=== PATIENT | female | born 1960 | race Two or more races ===

== ENCOUNTER 2017-08-29 19:19 | Inpatient (IN) | payer MEDICAID ==
[~2017-08-29] VITALS: Ht 200.7 cm; Wt 100.9 kg
[~2017-08-29 19:19] MED LIST: ALBU18HF2 INH; ALBU4TAB4 PO; ALBU8.5H8 IH; ARIP15TA3 PO; AZIT-63 PO; BACL10TA PO; BENZ-38 PO; BUPR1PAT TOP; DIPH-186 PO; DOXE75CA3 PO; FLUO20CA39 PO; GUAI600T45 PO; HYDR50TA65 PO; LEVO750T46 PO; PANT40TA4 PO; TAM75C PO; TIOT4MIS5 IH
[2017-08-29] MEDS ORDERED: methylPREDNISolone sod succ 125mg/2ml vial IV ONE (20:00)
[2017-08-29] MEDS ORDERED: ipratropium/albuterol 3ml nebule NEB ONE (20:00)
[2017-08-29] MEDS ORDERED: albuterol 2.5 MG/3 ML nebule NEB ONE (20:00)
[2017-08-29] MEDS ORDERED: normal saline 1000ML IV soln IVB ONE (20:00)
[2017-08-29 20:23] LABS: BASOPHILS % (AUTO) 0 % (0-1); EOSINOPHILS # (AUTO) 0.4 X10'3 (0-0.9); EOSINOPHILS % (AUTO) 5.4 % (0-6); HEMATOCRIT 39.6 % (35.0-45.0); HEMOGLOBIN 12.9 g/dl (12.0-16.0); LYMPHOCYTES # (AUTO) 0.7 X10'3 (1.1-4.8); LYMPHOCYTES % (AUTO) 9.4 % (21-51); MEAN CORPUSCULAR HEMOGLOBIN 28.5 PG (27.0-31.0); MEAN CORPUSCULAR HGB CONC 32.6 % (33.0-36.5); MEAN CORPUSCULAR VOLUME 87.3 FL (78-98); MEAN PLATELET VOLUME 6.5 FL (7.4-10.4); MONOCYTES # (AUTO) 0.5 X10'3 (0-0.9); NEUTROPHILS % (AUTO) 78.2 % (42-75); PLATELET COUNT 265 X10'3 (140-440); RED BLOOD COUNT 4.53 X10'6 (4.20-5.60); RED CELL DISTRIBUTION WIDTH 16.9 % (11.5-14.5); WHITE BLOOD COUNT 7.6 X10'3 (4.5-11.0)
[2017-08-29 20:30] LABS: INR 0.9 INR; PARTIAL THROMBOPLASTIN TIME 26 SECONDS (22-32); PROTHROMBIN TIME 9.8 SECONDS (9.0-12.0)
[2017-08-29 20:32] LABS: ALANINE AMINOTRANSFERASE 26 U/L (12-78); ALBUMIN 3.1 G/DL (3.4-5.0); ALBUMIN/GLOBULIN RATIO 0.7 (1.1-1.5); ALKALINE PHOSPHATASE 73 IU/L (46-116); ANION GAP 3 (8-16); ASPARTATE AMINO TRANSFERASE 15 U/L (10-37); BILIRUBIN,TOTAL 0.3 MG/DL (0.1-1.0); BLOOD UREA NITROGEN 8 MG/DL (7-18); BUN/CREATININE RATIO 13.1 (6.6-38.0); CHLORIDE 102 MMOL/L (99-107); CREATININE 0.61 MG/DL (0.40-0.90); GLUCOSE 154 MG/DL (70-104); POTASSIUM 4.3 MMOL/L (3.5-5.1); SODIUM 140 MMOL/L (135-145); TOTAL CARBON DIOXIDE 35.5 MMOL/L (24-32); TOTAL PROTEIN 7.3 G/DL (6.4-8.2); eGFR > 90 ML/MIN
[2017-08-29] MEDS ORDERED: levoFLOXACIN-Levaquin 500mg/D5 100 ML IV ONE (21:20)
[2017-08-29] MEDS ORDERED: ondansetron/PF 4mg/2ml inj IV PRN (22:45)
[2017-08-29] MEDS ORDERED: magnesium hydroxide 30ml (MOM) UD suspension PO PRN (22:45)
[2017-08-29] MEDS ORDERED: mag hydrox/Alum hydrox/simeth 30ml oral suspension PO PRN (22:45)
[2017-08-29] MEDS ORDERED: acetaminophen 325mg tablet PO PRN ×2 (22:45)
[2017-08-29] MEDS: normal saline 1000ml 1,000 ML IV SCH (23:19)
[2017-08-29] MEDS: baclofen 10mg tablet PO SCH (23:41)
[2017-08-30] VITALS: BP 120/81
[2017-08-30] MEDS: methylPREDNISolone sod succ 125mg/2ml vial IV SCH ×4 (01:58→21:25)
[2017-08-30 05:00] VITALS: BP 124/79
[2017-08-30 07:04] LABS: ALBUMIN 2.8 G/DL (3.4-5.0); ANION GAP 6 (8-16); BLOOD UREA NITROGEN 11 MG/DL (7-18); BUN/CREATININE RATIO 13.1 (6.6-38.0); CALCIUM 8.7 MG/DL (8.5-10.1); CHLORIDE 102 MMOL/L (99-107); CREATININE 0.84 MG/DL (0.40-0.90); GLUCOSE 272 MG/DL (70-104); SODIUM 140 MMOL/L (135-145); TOTAL CARBON DIOXIDE 32.1 MMOL/L (24-32); eGFR 70 ML/MIN
[2017-08-30 07:05] LABS: BASOPHILS % (AUTO) 0 % (0-1); EOSINOPHILS % (AUTO) 0.7 % (0-6); HEMATOCRIT 39.3 % (35.0-45.0); HEMOGLOBIN 12.7 g/dl (12.0-16.0); LYMPHOCYTES # (AUTO) 0.3 X10'3 (1.1-4.8); LYMPHOCYTES % (AUTO) 4.4 % (21-51); MEAN CORPUSCULAR HEMOGLOBIN 28.4 PG (27.0-31.0); MEAN CORPUSCULAR HGB CONC 32.4 % (33.0-36.5); MEAN CORPUSCULAR VOLUME 87.5 FL (78-98); MEAN PLATELET VOLUME 7.1 FL (7.4-10.4); MONOCYTES # (AUTO) 0.1 X10'3 (0-0.9); MONOCYTES % (AUTO) 0.9 % (2-12); NEUTROPHILS # (AUTO) 5.4 X10'3 (1.8-7.7); PLATELET COUNT 259 X10'3 (140-440); RED BLOOD COUNT 4.49 X10'6 (4.20-5.60); RED CELL DISTRIBUTION WIDTH 16.9 % (11.5-14.5); WHITE BLOOD COUNT 5.8 X10'3 (4.5-11.0)
[2017-08-30] MEDS ORDERED: lactobacillus rhamnosus 10,000 MMU CELLS/CAPSULE PO SCH (07:30)
[2017-08-30] MEDS: pantoprazole 40mg Tablet.DR PO SCH (08:14)
[2017-08-30] MEDS: LACTOBACILLUS RHAMNOSUS GG 15 billion unit sprinkle caps PO SCH (08:15)
[2017-08-30] MEDS: baclofen 10mg tablet PO SCH ×2 (08:15→21:25)
[2017-08-30] MEDS: levoFLOXACIN-Levaquin 750MG/D5 150 ML IV SCH (08:15)
[2017-08-30] MEDS: enoxaparin 40mg/0.4ml syringe SUBCUT SCH (08:16)
[2017-08-30] MEDS: guaiFENesin ER 600mg tablet PO SCH ×2 (08:18→21:25)
[2017-08-30] MEDS: clonazePAM 0.5mg tablet PO PRN ×2 (08:31→19:16)
[2017-08-30] MEDS: ipratropium/albuterol 3ml nebule NEB PRN ×2 (08:42→11:16)
[2017-08-30] MEDS: normal saline 1000ml 1,000 ML IV SCH ×2 (08:45→15:07)
[2017-08-30 10:00] VITALS: BP 121/84
[2017-08-30] MEDS ORDERED: dextrose ORAL solution 15 GM/59 ML bottle PO PRN ×2 (11:00)
[2017-08-30] MEDS ORDERED: glucagon, human recombinant 1mg kit SUBCUT PRN (11:00)
[2017-08-30] MEDS ORDERED: MESSAGE TO PHARMACY PO ONE (11:00)
[2017-08-30] MEDS ORDERED: dextrose 50%-water 50ml dispensing syringe IV PRN ×2 (11:00)
[2017-08-30 13:40] LABS: HEMOGLOBIN A1C 6.6 % (4.5-6.2)
[2017-08-30 18:00] VITALS: BP 148/88
[2017-08-30] MEDS: insulin Lispro (HumaLOG) vial - multi-dose SQ SCH (19:52)
[2017-08-30] MEDS ORDERED: zolpidem 5mg tablet PO PRN ×2 (20:05→20:30)
[2017-08-30] MEDS: aripiprazole 5mg tablet PO SCH (21:25)
[2017-08-30 22:00] VITALS: BP 124/70
[2017-08-30] MEDS: Insulin Detemir pen SQ SCH (22:49)
[2017-08-30] MEDS: zolpidem 5mg tablet PO PRN (22:50)
[2017-08-31] MEDS: methylPREDNISolone sod succ 125mg/2ml vial IV SCH ×4 (02:11→20:01)
[2017-08-31] MEDS: normal saline 1000ml 1,000 ML IV SCH ×2 (02:11→13:43)
[2017-08-31] MEDS: ipratropium/albuterol 3ml nebule NEB PRN ×2 (03:04→09:06)
[2017-08-31 06:26] LABS: BASOPHILS % (AUTO) 0 % (0-1); EOSINOPHILS # (AUTO) 0.1 X10'3 (0-0.9); EOSINOPHILS % (AUTO) 1.2 % (0-6); HEMOGLOBIN 11.8 g/dl (12.0-16.0); LYMPHOCYTES # (AUTO) 0.5 X10'3 (1.1-4.8); LYMPHOCYTES % (AUTO) 5.4 % (21-51); MEAN CORPUSCULAR HEMOGLOBIN 28.4 PG (27.0-31.0); MEAN CORPUSCULAR HGB CONC 32.6 % (33.0-36.5); MEAN CORPUSCULAR VOLUME 87.2 FL (78-98); MEAN PLATELET VOLUME 6.7 FL (7.4-10.4); MONOCYTES # (AUTO) 0.3 X10'3 (0-0.9); MONOCYTES % (AUTO) 2.8 % (2-12); NEUTROPHILS % (AUTO) 90.6 % (42-75); PLATELET COUNT 275 X10'3 (140-440); RED BLOOD COUNT 4.13 X10'6 (4.20-5.60); RED CELL DISTRIBUTION WIDTH 17.3 % (11.5-14.5); WHITE BLOOD COUNT 8.9 X10'3 (4.5-11.0)
[2017-08-31 06:32] VITALS: BP 119/69
[2017-08-31 06:39] LABS: ALBUMIN 2.8 G/DL (3.4-5.0); ANION GAP 3 (8-16); BLOOD UREA NITROGEN 11 MG/DL (7-18); BUN/CREATININE RATIO 16.2 (6.6-38.0); CALCIUM 8.5 MG/DL (8.5-10.1); CHLORIDE 106 MMOL/L (99-107); CREATININE 0.68 MG/DL (0.40-0.90); GLUCOSE 181 MG/DL (70-104); SODIUM 142 MMOL/L (135-145); TOTAL CARBON DIOXIDE 32.6 MMOL/L (24-32); eGFR 90 ML/MIN
[2017-08-31] MEDS: LACTOBACILLUS RHAMNOSUS GG 15 billion unit sprinkle caps PO SCH (07:33)
[2017-08-31] MEDS: enoxaparin 40mg/0.4ml syringe SUBCUT SCH (07:33)
[2017-08-31] MEDS: pantoprazole 40mg Tablet.DR PO SCH (07:33)
[2017-08-31] MEDS: guaiFENesin ER 600mg tablet PO SCH ×2 (07:33→20:01)
[2017-08-31] MEDS: clonazePAM 0.5mg tablet PO PRN (07:33)
[2017-08-31] MEDS: levoFLOXACIN-Levaquin 750MG/D5 150 ML IV SCH (07:33)
[2017-08-31] MEDS: baclofen 10mg tablet PO SCH ×2 (07:34→20:02)
[2017-08-31] MEDS ORDERED: FLUoxetine 20mg capsule PO SCH (08:00)
[2017-08-31] MEDS: insulin Lispro (HumaLOG) vial - multi-dose SQ SCH ×3 (08:46→18:57)
[2017-08-31 10:53] VITALS: BP 132/79
[2017-08-31] MEDS ORDERED: BUPRENORPHINE 20 MCG/HR TOP SCH (10:55)
[2017-08-31 18:10] VITALS: BP 129/89
[2017-08-31] MEDS: aripiprazole 5mg tablet PO SCH (20:02)
[2017-08-31] MEDS: Insulin Detemir pen SQ SCH (20:33)
[2017-08-31] MEDS: zolpidem 5mg tablet PO PRN (20:34)
[2017-08-31 22:02] VITALS: BP 118/80
[2017-09-01] MEDS: normal saline 1000ml 1,000 ML IV SCH ×2 (00:45→19:06)
[2017-09-01] MEDS: methylPREDNISolone sod succ 125mg/2ml vial IV SCH ×3 (02:35→13:51)
[2017-09-01 06:00] VITALS: BP 101/58
[2017-09-01 06:04] LABS: BASOPHILS # (AUTO) 0.1 X10'3 (0-0.2); BASOPHILS % (AUTO) 0.5 % (0-1); EOSINOPHILS % (AUTO) 0 % (0-6); HEMATOCRIT 35.9 % (35.0-45.0); HEMOGLOBIN 11.5 g/dl (12.0-16.0); LYMPHOCYTES # (AUTO) 0.5 X10'3 (1.1-4.8); LYMPHOCYTES % (AUTO) 5.1 % (21-51); MEAN CORPUSCULAR HEMOGLOBIN 28.4 PG (27.0-31.0); MEAN CORPUSCULAR HGB CONC 32.1 % (33.0-36.5); MEAN CORPUSCULAR VOLUME 88.5 FL (78-98); MEAN PLATELET VOLUME 7.1 FL (7.4-10.4); MONOCYTES # (AUTO) 0.3 X10'3 (0-0.9); MONOCYTES % (AUTO) 2.8 % (2-12); NEUTROPHILS # (AUTO) 9.4 X10'3 (1.8-7.7); NEUTROPHILS % (AUTO) 91.6 % (42-75); PLATELET COUNT 283 X10'3 (140-440); RED BLOOD COUNT 4.06 X10'6 (4.20-5.60); RED CELL DISTRIBUTION WIDTH 17.7 % (11.5-14.5); WHITE BLOOD COUNT 10.2 X10'3 (4.5-11.0)
[2017-09-01 06:19] LABS: ALBUMIN 2.6 G/DL (3.4-5.0); ANION GAP 2 (8-16); BLOOD UREA NITROGEN 12 MG/DL (7-18); BUN/CREATININE RATIO 20.3 (6.6-38.0); CALCIUM 8.4 MG/DL (8.5-10.1); CHLORIDE 107 MMOL/L (99-107); CREATININE 0.59 MG/DL (0.40-0.90); GLUCOSE 139 MG/DL (70-104); SODIUM 142 MMOL/L (135-145); TOTAL CARBON DIOXIDE 32.7 MMOL/L (24-32); eGFR > 90 ML/MIN
[2017-09-01] MEDS: LACTOBACILLUS RHAMNOSUS GG 15 billion unit sprinkle caps PO SCH (07:24)
[2017-09-01] MEDS: guaiFENesin ER 600mg tablet PO SCH (07:25)
[2017-09-01] MEDS: pantoprazole 40mg Tablet.DR PO SCH (07:25)
[2017-09-01] MEDS: enoxaparin 40mg/0.4ml syringe SUBCUT SCH (07:25)
[2017-09-01] MEDS: levoFLOXACIN-Levaquin 750MG/D5 150 ML IV SCH (07:25)
[2017-09-01] MEDS: baclofen 10mg tablet PO SCH (07:25)
[2017-09-01] MEDS: clonazePAM 0.5mg tablet PO PRN ×2 (07:30→16:03)
[2017-09-01] MEDS: insulin Lispro (HumaLOG) vial - multi-dose SQ SCH ×3 (08:54→18:50)
[2017-09-01] MEDS: ipratropium/albuterol 3ml nebule NEB PRN ×2 (09:41→15:11)
[2017-09-01 10:00] VITALS: BP 128/79
[2017-09-01] MEDS ORDERED: LEVO750T46 PO (19:00)
[2017-09-01] MEDS ORDERED: TAM75C PO (19:00)
[2017-09-01] MEDS ORDERED: ALBU8.5H8 IH (19:00)
[2017-09-01] MEDS ORDERED: PRED10TA23 PO (19:34)
== END 2017-09-01 20:05 | disposition home health service (06) | DRG 133 ==
LOC: ER 19:19 → ED HOLD 22:45 → ORTHO 4S 23:59
PROVIDERS: ADMIT Internal Medicine; ATTEND Legal Medicine
DX: J96.21 Acute and chronic respiratory failure with hypoxia (principal); J18.9 Pneumonia, unspecified organism; Z99.81 Dependence on supplemental oxygen; J44.1 Chronic obstructive pulmonary disease with (acute) exacerbation; F31.9 Bipolar disorder, unspecified; F41.0 Panic disorder [episodic paroxysmal anxiety]; F29 Unspecified psychosis not due to a substance or known physiological condition; G43.909 Migraine, unspecified, not intractable, without status migrainosus; M19.90 Unspecified osteoarthritis, unspecified site; M54.9 Dorsalgia, unspecified; G89.29 Other chronic pain; K21.9 Gastro-esophageal reflux disease without esophagitis; Z82.0 Family history of epilepsy and other diseases of the nervous system; Z86.73 Personal history of transient ischemic attack (TIA), and cerebral infarction without residual deficits; Z88.2 Allergy status to sulfonamides; Z88.1 Allergy status to other antibiotic agents; Z88.8 Allergy status to other drugs, medicaments and biological substances; Z79.899 Other long term (current) drug therapy; Z79.01 Long term (current) use of anticoagulants; Z87.891 Personal history of nicotine dependence
CPT/HCPCS: 36415; 71045; 80048; 80053; 82948; 83036; 83880; 85025; 85610; 85730; 87070; 87502; 87503; 93005; 94640; 94760; 96365; 96375; 99285; J1650; J1956; J2930; J7030

== ENCOUNTER 2017-09-17 17:04 | Inpatient (IN) | payer MEDICAID ==
[~2017-09-17] VITALS: Ht 170.2 cm; Wt 97.3 kg
[~2017-09-17 17:04] MED LIST changes: -ALBU18HF2 INH; -AZIT-63 PO; -BACL10TA PO; -BENZ-38 PO; -DIPH-186 PO; +PRED10TA23 PO
[2017-09-17] MEDS ORDERED: methylPREDNISolone sod succ 125mg/2ml vial IV ONE (17:45)
[2017-09-17] MEDS ORDERED: ipratropium/albuterol 3ml nebule NEB ONE ×2 (17:45→19:25)
[2017-09-17 18:06] LABS: BASOPHILS % (AUTO) 0 % (0-1); EOSINOPHILS % (AUTO) 0.1 % (0-6); HEMATOCRIT 37.9 % (35.0-45.0); HEMOGLOBIN 12.7 g/dl (12.0-16.0); LYMPHOCYTES # (AUTO) 1.1 X10'3 (1.1-4.8); LYMPHOCYTES % (AUTO) 6.5 % (21-51); MEAN CORPUSCULAR HEMOGLOBIN 29.1 PG (27.0-31.0); MEAN CORPUSCULAR HGB CONC 33.5 % (33.0-36.5); MEAN CORPUSCULAR VOLUME 86.8 FL (78-98); MEAN PLATELET VOLUME 6.4 FL (7.4-10.4); MONOCYTES # (AUTO) 0.3 X10'3 (0-0.9); MONOCYTES % (AUTO) 1.7 % (2-12); NEUTROPHILS % (AUTO) 91.7 % (42-75); PLATELET COUNT 319 X10'3 (140-440); RED BLOOD COUNT 4.37 X10'6 (4.20-5.60); RED CELL DISTRIBUTION WIDTH 17.6 % (11.5-14.5); WHITE BLOOD COUNT 16.3 X10'3 (4.5-11.0)
[2017-09-17 18:16] LABS: PARTIAL THROMBOPLASTIN TIME 27 SECONDS (22-32); PROTHROMBIN TIME 9.9 SECONDS (9.0-12.0)
[2017-09-17 18:28] LABS: ALANINE AMINOTRANSFERASE 22 U/L (12-78); ALBUMIN 3.3 G/DL (3.4-5.0); ALBUMIN/GLOBULIN RATIO 0.8 (1.1-1.5); ALKALINE PHOSPHATASE 66 IU/L (46-116); ANION GAP 6 (8-16); ASPARTATE AMINO TRANSFERASE 12 U/L (10-37); BILIRUBIN,TOTAL 0.7 MG/DL (0.1-1.0); BLOOD UREA NITROGEN 11 MG/DL (7-18); BUN/CREATININE RATIO 18.3 (6.6-38.0); CALCIUM 8.9 MG/DL (8.5-10.1); CHLORIDE 101 MMOL/L (99-107); GLUCOSE 104 MG/DL (70-104); SODIUM 140 MMOL/L (135-145); TOTAL CARBON DIOXIDE 33.4 MMOL/L (24-32); TOTAL PROTEIN 7.3 G/DL (6.4-8.2); eGFR > 90 ML/MIN
[2017-09-17] MEDS ORDERED: acetaminophen 325mg tablet PO STA (18:30)
[2017-09-17] MEDS ORDERED: normal saline 1000ML IV soln IV ONE (18:30)
[2017-09-17] MEDS ORDERED: ketorolac trometh. 30mg/ml inj. IV ONE (19:25)
[2017-09-17] MEDS ORDERED: CefTRIAXone 2gm/NS 100ml IVPB 100 ML IV ONE (20:45)
[2017-09-17] MEDS ORDERED: vancomycin/NS 1 GM ADD-VANTAGE 250 ML X 1 DOSE IV ONE (20:55)
[2017-09-17 20:59] LABS: CLARITY,URINE Clear (Clear); COLOR,URINE Yellow (Yellow); GLUCOSE, URINE Negative (Neg); KETONES,URINE Negative (Neg); LEUKOCYTE ESTERASE ,URINE Small (Neg); NITRITES, URINE Negative (Neg); OCCULT BLOOD,URINE Negative (Neg); PH,URINE 6.5 (4.8-8.0); PROTEIN,URINE Negative (Neg); UA COLLECTION TYPE CLN CATCH MIDSTREAM; UROBILINOGEN,URINE 0.2 E.U/dL (0.2-1.0)
[2017-09-17 21:09] LABS: WBC,URINE 0-4 /HPF (0-4)
[2017-09-17 21:10] LABS: BACTERIA,URINE 1+ /HPF (Neg); RBC,URINE 0-2 /HPF (0-2); SQUAMOUS EPITHELIAL CELL,UR MODERATE /LPF (FEW); TRANSITIONAL EPI CELLS,URINE FEW /HPF
[2017-09-17] MEDS ORDERED: magnesium hydroxide 30ml (MOM) UD suspension PO PRN (23:25)
[2017-09-17] MEDS ORDERED: mag hydrox/Alum hydrox/simeth 30ml oral suspension PO PRN (23:25)
[2017-09-17] MEDS ORDERED: acetaminophen 325mg tablet PO PRN (23:25)
[2017-09-17] MEDS ORDERED: albuterol 2.5 MG/3 ML nebule NEB PRN (23:35)
[2017-09-18] MEDS ORDERED: piperacillin/tazo 3.375gm/50ml 50 ML IV SCH
[2017-09-18] MEDS: methylPREDNISolone sod succ 125mg/2ml vial IV SCH ×3 (01:52→15:02)
[2017-09-18] MEDS: ipratropium 0.5 MG/2.5ML nebule IH SCH ×4 (03:18→20:00)
[2017-09-18] MEDS: lactobacillus rhamnosus 10,000 MMU CELLS/CAPSULE PO SCH ×2 (07:39→16:45)
[2017-09-18] MEDS: pantoprazole 40mg Tablet.DR PO SCH (07:39)
[2017-09-18] MEDS: FLUoxetine 20mg capsule PO SCH (08:00)
[2017-09-18] MEDS ORDERED: HYDR-565 PO (08:23)
[2017-09-18] MEDS: guaiFENesin ER 600mg tablet PO SCH ×2 (08:31→20:39)
[2017-09-18] MEDS: hydrOXYzine 25 MG tablet PO SCH ×2 (08:37→15:08)
[2017-09-18 08:52] LABS: BASOPHILS % (AUTO) 0 % (0-1); EOSINOPHILS % (AUTO) 0 % (0-6); HEMATOCRIT 36.3 % (35.0-45.0); HEMOGLOBIN 12.2 g/dl (12.0-16.0); LYMPHOCYTES # (AUTO) 0.5 X10'3 (1.1-4.8); LYMPHOCYTES % (AUTO) 2.7 % (21-51); MEAN CORPUSCULAR HEMOGLOBIN 29.4 PG (27.0-31.0); MEAN CORPUSCULAR HGB CONC 33.6 % (33.0-36.5); MEAN CORPUSCULAR VOLUME 87.4 FL (78-98); MEAN PLATELET VOLUME 6.5 FL (7.4-10.4); MONOCYTES # (AUTO) 0.1 X10'3 (0-0.9); MONOCYTES % (AUTO) 0.7 % (2-12); NEUTROPHILS # (AUTO) 16.9 X10'3 (1.8-7.7); NEUTROPHILS % (AUTO) 96.6 % (42-75); PLATELET COUNT 283 X10'3 (140-440); RED BLOOD COUNT 4.15 X10'6 (4.20-5.60); WHITE BLOOD COUNT 17.5 X10'3 (4.5-11.0)
[2017-09-18 09:09] LABS: ALANINE AMINOTRANSFERASE 19 U/L (12-78); ALBUMIN 2.8 G/DL (3.4-5.0); ALBUMIN/GLOBULIN RATIO 0.7 (1.1-1.5); ALKALINE PHOSPHATASE 64 IU/L (46-116); ANION GAP 7 (8-16); ASPARTATE AMINO TRANSFERASE 9 U/L (10-37); BILIRUBIN,TOTAL 0.3 MG/DL (0.1-1.0); BLOOD UREA NITROGEN 14 MG/DL (7-18); BUN/CREATININE RATIO 15.6 (6.6-38.0); CALCIUM 8.4 MG/DL (8.5-10.1); CHLORIDE 106 MMOL/L (99-107); GLUCOSE 256 MG/DL (70-104); POTASSIUM 4.1 MMOL/L (3.5-5.1); SODIUM 141 MMOL/L (135-145); TOTAL CARBON DIOXIDE 27.7 MMOL/L (24-32); TOTAL PROTEIN 6.8 G/DL (6.4-8.2); eGFR 65 ML/MIN
[2017-09-18 10:33] VITALS: BP 105/63
[2017-09-18] MEDS ORDERED: levoFLOXACIN 750MG TABLET PO SCH (11:00)
[2017-09-18] MEDS: HYDROcodone/acetaminophen 10/325mg tab PO PRN (11:03)
[2017-09-18 15:05] VITALS: BP 121/69
[2017-09-18 15:32] VITALS: BP 124/70
[2017-09-18 18:00] VITALS: BP 147/77
[2017-09-18] MEDS: CefTRIAXone/D5W-Rocephin 1gm 50 ML IV SCH (20:39)
[2017-09-18] MEDS: aripiprazole 5mg tablet PO SCH (20:39)
[2017-09-18] MEDS: doxepin 25mg capsule PO SCH (22:26)
[2017-09-19] VITALS: BP 124/75
[2017-09-19] MEDS: hydrOXYzine 25 MG tablet PO SCH ×3 (00:12→17:09)
[2017-09-19] MEDS: methylPREDNISolone sod succ/PF 40mg inj. IV SCH ×3 (00:12→17:10)
[2017-09-19] MEDS: HYDROcodone/acetaminophen 10/325mg tab PO PRN ×3 (02:09→17:10)
[2017-09-19] MEDS: ipratropium 0.5 MG/2.5ML nebule IH SCH ×4 (02:11→20:16)
[2017-09-19] MEDS: ondansetron/PF 4mg/2ml inj IV PRN ×2 (05:55→14:59)
[2017-09-19 06:07] LABS: BASOPHILS # (AUTO) 0.1 X10'3 (0-0.2); BASOPHILS % (AUTO) 0.7 % (0-1); EOSINOPHILS # (AUTO) 0.3 X10'3 (0-0.9); EOSINOPHILS % (AUTO) 1.3 % (0-6); HEMATOCRIT 35.1 % (35.0-45.0); HEMOGLOBIN 11.8 g/dl (12.0-16.0); LYMPHOCYTES # (AUTO) 0.6 X10'3 (1.1-4.8); LYMPHOCYTES % (AUTO) 3.2 % (21-51); MEAN CORPUSCULAR HEMOGLOBIN 29.4 PG (27.0-31.0); MEAN CORPUSCULAR HGB CONC 33.7 % (33.0-36.5); MEAN CORPUSCULAR VOLUME 87.3 FL (78-98); MEAN PLATELET VOLUME 7.3 FL (7.4-10.4); MONOCYTES # (AUTO) 0.5 X10'3 (0-0.9); MONOCYTES % (AUTO) 2.7 % (2-12); NEUTROPHILS # (AUTO) 18.3 X10'3 (1.8-7.7); NEUTROPHILS % (AUTO) 92.1 % (42-75); PLATELET COUNT 323 X10'3 (140-440); RED BLOOD COUNT 4.02 X10'6 (4.20-5.60); RED CELL DISTRIBUTION WIDTH 17.5 % (11.5-14.5); WHITE BLOOD COUNT 19.9 X10'3 (4.5-11.0)
[2017-09-19 06:40] LABS: ALANINE AMINOTRANSFERASE 21 U/L (12-78); ALBUMIN 2.9 G/DL (3.4-5.0); ALBUMIN/GLOBULIN RATIO 0.7 (1.1-1.5); ALKALINE PHOSPHATASE 73 IU/L (46-116); ANION GAP 9 (8-16); ASPARTATE AMINO TRANSFERASE 10 U/L (10-37); BILIRUBIN,TOTAL 0.2 MG/DL (0.1-1.0); BLOOD UREA NITROGEN 12 MG/DL (7-18); BUN/CREATININE RATIO 17.1 (6.6-38.0); CHLORIDE 106 MMOL/L (99-107); GLUCOSE 140 MG/DL (70-104); POTASSIUM 4.1 MMOL/L (3.5-5.1); SODIUM 142 MMOL/L (135-145); TOTAL CARBON DIOXIDE 27.5 MMOL/L (24-32); eGFR 87 ML/MIN
[2017-09-19 07:30] VITALS: BP 122/74
[2017-09-19] MEDS: pantoprazole 40mg Tablet.DR PO SCH (07:31)
[2017-09-19] MEDS: lactobacillus rhamnosus 10,000 MMU CELLS/CAPSULE PO SCH ×2 (07:31→17:10)
[2017-09-19] MEDS: guaiFENesin ER 600mg tablet PO SCH ×2 (07:32→21:34)
[2017-09-19] MEDS: azithromycin 250mg tablet PO SCH (07:32)
[2017-09-19] MEDS: FLUoxetine 20mg capsule PO SCH (07:36)
[2017-09-19 11:32] VITALS: BP 129/83
[2017-09-19 18:00] VITALS: BP 118/91
[2017-09-19] MEDS: doxepin 25mg capsule PO SCH (21:34)
[2017-09-19] MEDS: aripiprazole 5mg tablet PO SCH (21:34)
[2017-09-19] MEDS: CefTRIAXone/D5W-Rocephin 1gm 50 ML IV SCH (21:34)
[2017-09-20] VITALS: BP 116/79
[2017-09-20] MEDS: hydrOXYzine 25 MG tablet PO SCH ×2 (00:18→07:26)
[2017-09-20] MEDS: methylPREDNISolone sod succ/PF 40mg inj. IV SCH ×2 (00:18→07:27)
[2017-09-20] MEDS: ipratropium 0.5 MG/2.5ML nebule IH SCH ×3 (02:48→14:40)
[2017-09-20 06:33] LABS: BASOPHILS % (AUTO) 0 % (0-1); EOSINOPHILS # (AUTO) 0.1 X10'3 (0-0.9); EOSINOPHILS % (AUTO) 0.9 % (0-6); HEMOGLOBIN 11.8 g/dl (12.0-16.0); LYMPHOCYTES # (AUTO) 0.5 X10'3 (1.1-4.8); LYMPHOCYTES % (AUTO) 3.5 % (21-51); MEAN CORPUSCULAR HEMOGLOBIN 28.8 PG (27.0-31.0); MEAN CORPUSCULAR HGB CONC 32.6 % (33.0-36.5); MEAN CORPUSCULAR VOLUME 88.3 FL (78-98); MEAN PLATELET VOLUME 7.1 FL (7.4-10.4); MONOCYTES # (AUTO) 0.3 X10'3 (0-0.9); MONOCYTES % (AUTO) 2.1 % (2-12); NEUTROPHILS # (AUTO) 12.5 X10'3 (1.8-7.7); NEUTROPHILS % (AUTO) 93.5 % (42-75); PLATELET COUNT 316 X10'3 (140-440); RED BLOOD COUNT 4.08 X10'6 (4.20-5.60); WHITE BLOOD COUNT 13.4 X10'3 (4.5-11.0)
[2017-09-20 07:00] VITALS: BP 111/76
[2017-09-20 07:07] LABS: ALANINE AMINOTRANSFERASE 20 U/L (12-78); ALBUMIN 2.6 G/DL (3.4-5.0); ALBUMIN/GLOBULIN RATIO 0.7 (1.1-1.5); ALKALINE PHOSPHATASE 61 IU/L (46-116); ANION GAP 5 (8-16); ASPARTATE AMINO TRANSFERASE 8 U/L (10-37); BILIRUBIN,TOTAL 0.2 MG/DL (0.1-1.0); BLOOD UREA NITROGEN 14 MG/DL (7-18); CHLORIDE 107 MMOL/L (99-107); GLUCOSE 157 MG/DL (70-104); POTASSIUM 4.6 MMOL/L (3.5-5.1); SODIUM 146 MMOL/L (135-145); TOTAL CARBON DIOXIDE 34.1 MMOL/L (24-32); TOTAL PROTEIN 6.4 G/DL (6.4-8.2); eGFR 87 ML/MIN
[2017-09-20] MEDS: lactobacillus rhamnosus 10,000 MMU CELLS/CAPSULE PO SCH (07:26)
[2017-09-20] MEDS: pantoprazole 40mg Tablet.DR PO SCH (07:26)
[2017-09-20] MEDS: FLUoxetine 20mg capsule PO SCH (07:26)
[2017-09-20] MEDS: azithromycin 250mg tablet PO SCH (07:27)
[2017-09-20] MEDS: guaiFENesin ER 600mg tablet PO SCH (07:27)
[2017-09-20] MEDS: HYDROcodone/acetaminophen 10/325mg tab PO PRN (07:27)
[2017-09-20 11:00] VITALS: BP 140/75
[2017-09-20] MEDS ORDERED: LEVO500T89 PO (11:33)
[2017-09-20] MEDS ORDERED: PRED10TA23 PO (11:33)
[2017-09-20] MEDS ORDERED: DIPH1TAB PO (12:02)
[2017-09-21] MEDS ORDERED: BUPRENORPHINE 20 MCG/HR TOP SCH (08:00)
== END 2017-09-20 15:00 | disposition home health service (06) | DRG 720 ==
LOC: ER 17:04 → ED HOLD 23:22 → SUR 3N 09-18 15:30
PROVIDERS: ADMIT Internal Medicine; ATTEND Family Medicine
DX: A41.9 Sepsis, unspecified organism (principal); J96.20 Acute and chronic respiratory failure, unspecified whether with hypoxia or hypercapnia; J18.9 Pneumonia, unspecified organism; Z99.81 Dependence on supplemental oxygen; J44.0 Chronic obstructive pulmonary disease with (acute) lower respiratory infection; J44.1 Chronic obstructive pulmonary disease with (acute) exacerbation; F31.9 Bipolar disorder, unspecified; F41.0 Panic disorder [episodic paroxysmal anxiety]; G89.4 Chronic pain syndrome; G43.909 Migraine, unspecified, not intractable, without status migrainosus; M19.90 Unspecified osteoarthritis, unspecified site; K21.9 Gastro-esophageal reflux disease without esophagitis; Z86.73 Personal history of transient ischemic attack (TIA), and cerebral infarction without residual deficits; Z87.891 Personal history of nicotine dependence; Z88.2 Allergy status to sulfonamides; Z88.3 Allergy status to other anti-infective agents; Z88.8 Allergy status to other drugs, medicaments and biological substances; Z79.52 Long term (current) use of systemic steroids; Z79.899 Other long term (current) drug therapy
CPT/HCPCS: 36415; 71045; 80053; 81001; 83605; 84145; 84484; 85025; 85610; 85730; 87040; 87070; 87088; 87502; 87503; 93005; 94640; 94760; 96361; 96365; 96366; 96367; 96375; 99285; A6258; J0696; J1885; J2405; J2920; J2930; J3370; J7030; Q0177

== ENCOUNTER 2017-10-01 20:13 | Emergency (ER) | payer MEDICAID ==
[~2017-10-01] VITALS: Ht 170.2 cm; Wt 97.7 kg
[~2017-10-01 20:13] MED LIST changes: +DIPH1TAB PO; -FLUO20CA39 PO; +HYDR-565 PO; -LEVO750T46 PO; -PANT40TA4 PO; -TAM75C PO
[2017-10-01 20:51] LABS: BASOPHILS % (AUTO) 0.2 % (0-1); EOSINOPHILS # (AUTO) 0.2 X10'3 (0-0.9); EOSINOPHILS % (AUTO) 2.3 % (0-6); HEMATOCRIT 39.2 % (35.0-45.0); HEMOGLOBIN 13.1 g/dl (12.0-16.0); LYMPHOCYTES # (AUTO) 2.1 X10'3 (1.1-4.8); LYMPHOCYTES % (AUTO) 22.6 % (21-51); MEAN CORPUSCULAR HGB CONC 33.3 % (33.0-36.5); MEAN CORPUSCULAR VOLUME 87.3 FL (78-98); MEAN PLATELET VOLUME 6.3 FL (7.4-10.4); MONOCYTES # (AUTO) 0.6 X10'3 (0-0.9); MONOCYTES % (AUTO) 6.5 % (2-12); NEUTROPHILS # (AUTO) 6.3 X10'3 (1.8-7.7); NEUTROPHILS % (AUTO) 68.4 % (42-75); PLATELET COUNT 320 X10'3 (140-440); RED BLOOD COUNT 4.49 X10'6 (4.20-5.60); RED CELL DISTRIBUTION WIDTH 17.8 % (11.5-14.5); WHITE BLOOD COUNT 9.2 X10'3 (4.5-11.0)
[2017-10-01 21:03] LABS: INR 0.9 INR; PARTIAL THROMBOPLASTIN TIME 24 SECONDS (22-32); PROTHROMBIN TIME 9.4 SECONDS (9.0-12.0)
[2017-10-01 21:07] LABS: ALANINE AMINOTRANSFERASE 31 U/L (12-78); ALBUMIN 3.3 G/DL (3.4-5.0); ALBUMIN/GLOBULIN RATIO 0.9 (1.1-1.5); ALKALINE PHOSPHATASE 79 IU/L (46-116); ANION GAP 7 (8-16); ASPARTATE AMINO TRANSFERASE 13 U/L (10-37); BILIRUBIN,TOTAL 0.2 MG/DL (0.1-1.0); BLOOD UREA NITROGEN 4 MG/DL (7-18); BUN/CREATININE RATIO 6.5 (6.6-38.0); CALCIUM 8.8 MG/DL (8.5-10.1); CHLORIDE 102 MMOL/L (99-107); CREATININE 0.62 MG/DL (0.40-0.90); GLUCOSE 122 MG/DL (70-104); POTASSIUM 4.3 MMOL/L (3.5-5.1); SODIUM 142 MMOL/L (135-145); TOTAL CARBON DIOXIDE 33.1 MMOL/L (24-32); TOTAL PROTEIN 6.8 G/DL (6.4-8.2); eGFR > 90 ML/MIN
[2017-10-01] MEDS ORDERED: ibuprofen 200mg tablet PO ONE (22:10)
[2017-10-01] MEDS ORDERED: IBUP-1985 PO (22:12)
[2017-10-01 22:26] VITALS: BP 120/93
== END 2017-10-01 22:27 | disposition home or self-care (01) ==
LOC: ER 20:13
DX: R07.89 Other chest pain (principal); J44.9 Chronic obstructive pulmonary disease, unspecified; G89.29 Other chronic pain; K21.9 Gastro-esophageal reflux disease without esophagitis; Z86.73 Personal history of transient ischemic attack (TIA), and cerebral infarction without residual deficits; Z88.2 Allergy status to sulfonamides; Z87.891 Personal history of nicotine dependence
CPT/HCPCS: 36415; 71045; 80053; 84484; 85025; 85610; 85730; 93005; 99285

== ENCOUNTER 2017-10-17 20:10 | Emergency (ER) | payer MEDICAID ==
[~2017-10-17] VITALS: Ht 167.6 cm; Wt 100.9 kg
[~2017-10-17 20:10] MED LIST changes: +IBUP-1985 PO
[2017-10-18] MEDS ORDERED: ondansetron/PF 4mg/2ml inj IV ONE (00:25)
[2017-10-18] MEDS ORDERED: normal saline 1000ML IV soln IVB ONE ×2 (00:25→02:25)
[2017-10-18] MEDS ORDERED: morphine 2 MG/ML inj. syringe IV PRN (00:25)
[2017-10-18 01:19] LABS: BASOPHILS % (AUTO) 0.3 % (0-1); EOSINOPHILS # (AUTO) 0.3 X10'3 (0-0.9); EOSINOPHILS % (AUTO) 3.2 % (0-6); HEMATOCRIT 38.9 % (35.0-45.0); HEMOGLOBIN 12.9 g/dl (12.0-16.0); LYMPHOCYTES # (AUTO) 1.9 X10'3 (1.1-4.8); LYMPHOCYTES % (AUTO) 23.3 % (21-51); MEAN CORPUSCULAR HEMOGLOBIN 29.2 PG (27.0-31.0); MEAN CORPUSCULAR HGB CONC 33.2 % (33.0-36.5); MEAN CORPUSCULAR VOLUME 87.8 FL (78-98); MEAN PLATELET VOLUME 6.4 FL (7.4-10.4); MONOCYTES # (AUTO) 0.6 X10'3 (0-0.9); MONOCYTES % (AUTO) 7.5 % (2-12); NEUTROPHILS # (AUTO) 5.3 X10'3 (1.8-7.7); NEUTROPHILS % (AUTO) 65.7 % (42-75); PLATELET COUNT 360 X10'3 (140-440); RED BLOOD COUNT 4.43 X10'6 (4.20-5.60); RED CELL DISTRIBUTION WIDTH 16.7 % (11.5-14.5)
[2017-10-18 01:25] LABS: ALANINE AMINOTRANSFERASE 35 U/L (12-78); ALBUMIN 3.3 G/DL (3.4-5.0); ALBUMIN/GLOBULIN RATIO 0.9 (1.1-1.5); ALKALINE PHOSPHATASE 59 IU/L (46-116); ANION GAP 5 (8-16); ASPARTATE AMINO TRANSFERASE 16 U/L (10-37); BILIRUBIN,TOTAL 0.3 MG/DL (0.1-1.0); BLOOD UREA NITROGEN 10 MG/DL (7-18); BUN/CREATININE RATIO 15.2 (6.6-38.0); CALCIUM 8.8 MG/DL (8.5-10.1); CHLORIDE 107 MMOL/L (99-107); CREATININE 0.66 MG/DL (0.40-0.90); GLUCOSE 131 MG/DL (70-104); LIPASE 82 U/L (73-393); MAGNESIUM 2.2 MG/DL (1.5-2.4); POTASSIUM 3.5 MMOL/L (3.5-5.1); SODIUM 143 MMOL/L (135-145); TOTAL CARBON DIOXIDE 30.9 MMOL/L (24-32); eGFR > 90 ML/MIN
[2017-10-18] MEDS ORDERED: ONDA4TAB9 SL (02:24)
[2017-10-18] MEDS ORDERED: TAM75C PO (02:39)
[2017-10-18] MEDS ORDERED: oseltamivir phos 75mg capsule PO ONE (02:40)
[2017-10-18 07:11] VITALS: BP 115/66
== END 2017-10-18 07:13 | disposition home or self-care (01) ==
LOC: ER 20:12
DX: B34.9 Viral infection, unspecified (principal); J11.1 Influenza due to unidentified influenza virus with other respiratory manifestations; E86.0 Dehydration; J44.9 Chronic obstructive pulmonary disease, unspecified; K21.9 Gastro-esophageal reflux disease without esophagitis; G89.29 Other chronic pain; G43.909 Migraine, unspecified, not intractable, without status migrainosus; Z86.73 Personal history of transient ischemic attack (TIA), and cerebral infarction without residual deficits; Z88.2 Allergy status to sulfonamides; Z88.8 Allergy status to other drugs, medicaments and biological substances; Z79.899 Other long term (current) drug therapy
CPT/HCPCS: 36415; 71046; 80053; 83690; 83735; 85025; 87502; 87503; 93005; 96361; 96374; 99285; J2405; J7030

== ENCOUNTER 2017-10-27 16:23 | Emergency (ER) | payer MEDICAID ==
[~2017-10-27] VITALS: Ht 167.6 cm; Wt 96.4 kg
[~2017-10-27 16:23] MED LIST changes: -PRED10TA23 PO
[2017-10-27] MEDS ORDERED: LIDOcaine 1% 30ml preserv. free vial IJ ONE (16:30)
[2017-10-27] MEDS ORDERED: HYDR-3965 PO (17:12)
[2017-10-27 17:36] VITALS: BP 119/78
== END 2017-10-27 17:39 | disposition home or self-care (01) ==
LOC: ER 16:23
DX: S81.012A Laceration without foreign body, left knee, initial encounter (principal); G89.29 Other chronic pain; J44.9 Chronic obstructive pulmonary disease, unspecified; K21.9 Gastro-esophageal reflux disease without esophagitis; Z86.73 Personal history of transient ischemic attack (TIA), and cerebral infarction without residual deficits; Z88.2 Allergy status to sulfonamides; Z88.8 Allergy status to other drugs, medicaments and biological substances; Z79.899 Other long term (current) drug therapy; Z87.891 Personal history of nicotine dependence; W22.8XXA Striking against or struck by other objects, initial encounter; Y93.89 Activity, other specified; Y92.89 Other specified places as the place of occurrence of the external cause; Y99.8 Other external cause status
CPT/HCPCS: 12004; 73564; 99284; J3490

== ENCOUNTER 2017-10-27 18:14 | Emergency (ER) | payer MEDICAID ==
[~2017-10-27] VITALS: Ht 167.6 cm; Wt 100.4 kg
[~2017-10-27 18:14] MED LIST changes: +HYDR-3965 PO
[2017-10-27 18:35] VITALS: BP 123/82
[2017-10-27] MEDS ORDERED: HYDROcodone/acetaminophen 5mg/325mg tablet PO ONE (19:05)
== END 2017-10-27 19:17 | disposition home or self-care (01) ==
LOC: ER 18:15
DX: M25.562 Pain in left knee (principal); J44.9 Chronic obstructive pulmonary disease, unspecified; G89.29 Other chronic pain; K21.9 Gastro-esophageal reflux disease without esophagitis; Z86.73 Personal history of transient ischemic attack (TIA), and cerebral infarction without residual deficits; Z88.2 Allergy status to sulfonamides; Z79.899 Other long term (current) drug therapy
CPT/HCPCS: 99283; A6255

== ENCOUNTER 2017-11-02 16:23 | Emergency (ER) | payer MEDICAID ==
[~2017-11-02] VITALS: Ht 167.6 cm; Wt 100.9 kg
[2017-11-02 18:11] VITALS: BP 121/75
[2017-11-02] MEDS ORDERED: CEPH500C5 PO (18:31)
[2017-11-02] MEDS ORDERED: CLIN150C2 PO (18:31)
[2017-11-02] MEDS ORDERED: NEOM1OIN8 TP (18:31)
[2017-11-02] MEDS ORDERED: acetaminophen 325mg tablet PO ONE (18:55)
== END 2017-11-02 19:04 | disposition home or self-care (01) ==
LOC: ER 16:24
DX: L03.116 Cellulitis of left lower limb (principal); S81.012D Laceration without foreign body, left knee, subsequent encounter; Z86.73 Personal history of transient ischemic attack (TIA), and cerebral infarction without residual deficits; J44.9 Chronic obstructive pulmonary disease, unspecified; K21.9 Gastro-esophageal reflux disease without esophagitis; G89.29 Other chronic pain; Z87.891 Personal history of nicotine dependence; Z98.890 Other specified postprocedural states; Z88.2 Allergy status to sulfonamides; Z88.8 Allergy status to other drugs, medicaments and biological substances; Z79.899 Other long term (current) drug therapy; W18.31XD Fall on same level due to stepping on an object, subsequent encounter
CPT/HCPCS: 99283; A6255; A6449

== ENCOUNTER 2017-11-08 21:48 | Emergency (ER) | payer MEDICAID ==
[~2017-11-08] VITALS: Ht 167.6 cm; Wt 100.0 kg
[~2017-11-08 21:48] MED LIST changes: +CEPH500C5 PO; +CLIN150C2 PO; +NEOM1OIN8 TP
[2017-11-08] MEDS ORDERED: MORPHINE 2MG in 2ml NS syringe IV STA (22:28)
[2017-11-08] MEDS ORDERED: MORPHINE 2MG in 2ml NS syringe IM STA (22:29)
[2017-11-08] MEDS ORDERED: DOXY100C2 PO (22:41)
[2017-11-08] MEDS ORDERED: LEVO750T21 PO (22:41)
[2017-11-08] MEDS ORDERED: TRAM50TA2 PO (23:00)
[2017-11-08 23:18] VITALS: BP 127/76
== END 2017-11-08 23:20 | disposition home or self-care (01) ==
LOC: ER 21:49
DX: S81.012D Laceration without foreign body, left knee, subsequent encounter (principal); L03.116 Cellulitis of left lower limb; G43.909 Migraine, unspecified, not intractable, without status migrainosus; J44.9 Chronic obstructive pulmonary disease, unspecified; G89.29 Other chronic pain; K21.9 Gastro-esophageal reflux disease without esophagitis; M19.90 Unspecified osteoarthritis, unspecified site; Z98.890 Other specified postprocedural states; Z86.73 Personal history of transient ischemic attack (TIA), and cerebral infarction without residual deficits; Z88.8 Allergy status to other drugs, medicaments and biological substances; Z88.2 Allergy status to sulfonamides; Z88.1 Allergy status to other antibiotic agents; Z79.899 Other long term (current) drug therapy; X58.XXXD Exposure to other specified factors, subsequent encounter
CPT/HCPCS: 96372; 99283; J2274

== ENCOUNTER 2017-11-13 09:49 | Day surgery (SDC) | payer MEDICAID ==
[~2017-11-13 09:49] MED LIST changes: +DOXY100C2 PO; +LEVO750T21 PO; +TRAM50TA2 PO
[2017-11-14] MEDS ORDERED: CEPH500C5 PO (14:11)
== END 2017-11-13 11:16 | disposition home or self-care (01) ==
LOC: WOUND CARE 09:49
PROVIDERS: ATTEND Surgery
DX: S81.002A Unspecified open wound, left knee, initial encounter (principal); J44.9 Chronic obstructive pulmonary disease, unspecified; K21.9 Gastro-esophageal reflux disease without esophagitis; G43.909 Migraine, unspecified, not intractable, without status migrainosus; M19.90 Unspecified osteoarthritis, unspecified site; F31.9 Bipolar disorder, unspecified; Z79.52 Long term (current) use of systemic steroids; Z79.899 Other long term (current) drug therapy; Z86.73 Personal history of transient ischemic attack (TIA), and cerebral infarction without residual deficits; Z87.891 Personal history of nicotine dependence; X58.XXXA Exposure to other specified factors, initial encounter; Y93.89 Activity, other specified; Y92.89 Other specified places as the place of occurrence of the external cause; Y99.8 Other external cause status
CPT/HCPCS: 97597; A6021; A6206; A6446

== ENCOUNTER 2017-11-14 12:59 | Emergency (ER) | payer MEDICAID ==
[~2017-11-14] VITALS: Ht 167.6 cm; Wt 92.0 kg
[2017-11-14 13:02] VITALS: BP 120/74
[2017-11-14] MEDS ORDERED: cephalexin 250mg capsule PO ONE (14:10)
[2017-11-14] MEDS ORDERED: CEPH500C5 PO (14:11)
[2017-11-14] MEDS ORDERED: bacitracin 15gm ointment TP ONE (14:15)
== END 2017-11-14 14:15 | disposition home or self-care (01) ==
LOC: ER 13:00
DX: L03.116 Cellulitis of left lower limb (principal); G43.909 Migraine, unspecified, not intractable, without status migrainosus; J44.9 Chronic obstructive pulmonary disease, unspecified; K21.9 Gastro-esophageal reflux disease without esophagitis; M19.90 Unspecified osteoarthritis, unspecified site; G89.29 Other chronic pain; Z86.73 Personal history of transient ischemic attack (TIA), and cerebral infarction without residual deficits; Z98.890 Other specified postprocedural states; Z88.2 Allergy status to sulfonamides; Z88.8 Allergy status to other drugs, medicaments and biological substances; Z88.1 Allergy status to other antibiotic agents; Z79.899 Other long term (current) drug therapy
CPT/HCPCS: 99283; A6255; A6449

== ENCOUNTER → 2017-11-17 | Emergency (ER) | payer MEDICAID ==
[~2017-11-17] VITALS: Ht 167.6 cm; Wt 101.8 kg
[~2017-11-17] MED LIST changes: -LEVO750T21 PO
[2017-11-17 22:21] VITALS: BP 118/76
== END | disposition home or self-care (01) ==
LOC: ER 20:24
DX: J44.9 Chronic obstructive pulmonary disease, unspecified (principal); K21.9 Gastro-esophageal reflux disease without esophagitis; G89.29 Other chronic pain; M19.90 Unspecified osteoarthritis, unspecified site; Z86.73 Personal history of transient ischemic attack (TIA), and cerebral infarction without residual deficits; Z98.890 Other specified postprocedural states; Z88.2 Allergy status to sulfonamides; Z88.1 Allergy status to other antibiotic agents; Z88.8 Allergy status to other drugs, medicaments and biological substances; Z79.899 Other long term (current) drug therapy
CPT/HCPCS: 99283; A6255; A6449

== ENCOUNTER 2017-11-20 09:43 | Day surgery (SDC) | payer MEDICAID ==
[2017-11-20] MEDS ORDERED: LIDOcaine 2% 5ml jelly ONE (10:32)
== END 2017-11-20 11:09 | disposition home or self-care (01) ==
LOC: WOUND CARE 09:43
PROVIDERS: ATTEND Surgery
DX: S81.002D Unspecified open wound, left knee, subsequent encounter (principal); J44.9 Chronic obstructive pulmonary disease, unspecified; K21.9 Gastro-esophageal reflux disease without esophagitis; G43.909 Migraine, unspecified, not intractable, without status migrainosus; M19.90 Unspecified osteoarthritis, unspecified site; F31.9 Bipolar disorder, unspecified; Z79.52 Long term (current) use of systemic steroids; Z79.899 Other long term (current) drug therapy; Z86.73 Personal history of transient ischemic attack (TIA), and cerebral infarction without residual deficits; Z87.891 Personal history of nicotine dependence; X58.XXXD Exposure to other specified factors, subsequent encounter
CPT/HCPCS: 97597; A6021; A6206; A6446

== ENCOUNTER 2017-11-27 10:05 | Day surgery (SDC) | payer MEDICAID ==
[2017-11-28] MEDS ORDERED: ZOLP10TA5 PO (01:29)
== END 2017-11-27 11:45 | disposition home or self-care (01) ==
LOC: WOUND CARE 10:05
PROVIDERS: ATTEND Surgery
DX: S81.002D Unspecified open wound, left knee, subsequent encounter (principal); J44.9 Chronic obstructive pulmonary disease, unspecified; K21.9 Gastro-esophageal reflux disease without esophagitis; G43.909 Migraine, unspecified, not intractable, without status migrainosus; M19.90 Unspecified osteoarthritis, unspecified site; F31.9 Bipolar disorder, unspecified; Z79.52 Long term (current) use of systemic steroids; Z79.899 Other long term (current) drug therapy; Z86.73 Personal history of transient ischemic attack (TIA), and cerebral infarction without residual deficits; Z87.891 Personal history of nicotine dependence; X58.XXXD Exposure to other specified factors, subsequent encounter
CPT/HCPCS: 97597; A6021; A6213

== ENCOUNTER 2017-11-27 21:13 | Observation (INO) | payer MEDICAID ==
[~2017-11-27] VITALS: Ht 167.6 cm; Wt 102.7 kg
[2017-11-27] MEDS ORDERED: albuterol 2.5 MG/3 ML nebule CONTNEB PRN (22:55)
[2017-11-27] MEDS ORDERED: methylPREDNISolone sod succ 125mg/2ml vial IV ONE (22:55)
[2017-11-27] MEDS ORDERED: methylPREDNISolone sod succ 125mg/2ml vial IM ONE (23:15)
[2017-11-28] MEDS ORDERED: ZOLP10TA5 PO (01:29)
[2017-11-28] MEDS ORDERED: ondansetron/PF 4mg/2ml inj IV PRN (01:50)
[2017-11-28] MEDS ORDERED: acetaminophen 325mg tablet PO PRN (01:50)
[2017-11-28] MEDS ORDERED: traMADol 50MG tablet PO PRN (01:55)
[2017-11-28] MEDS ORDERED: albuterol 2.5 MG/3 ML nebule NEB PRN (01:55)
[2017-11-28] MEDS: ipratropium/albuterol 3ml nebule NEB SCH ×6 (04:00→23:13)
[2017-11-28] MEDS: methylPREDNISolone sod succ/PF 40mg inj. IV SCH ×2 (07:53→16:40)
[2017-11-28] MEDS: hydrOXYzine 25 MG tablet PO SCH ×2 (07:53→16:41)
[2017-11-28] MEDS ORDERED: ibuprofen 200mg tablet PO SCH (08:00)
[2017-11-28] MEDS ORDERED: HYDROcodone/acetaminophen 10/325mg tab PO SCH (08:00)
[2017-11-28] MEDS: budesonide 0.5mg/2ml UD nebule IH SCH ×2 (09:49→19:35)
[2017-11-28] MEDS ORDERED: zolpidem 5mg tablet PO PRN ×2 (10:20→21:00)
[2017-11-28 11:30] VITALS: BP 138/60
[2017-11-28] MEDS: HYDROcodone/acetaminophen 5mg/325mg tablet PO PRN (13:51)
[2017-11-28 20:00] VITALS: BP 113/72
[2017-11-28] MEDS ORDERED: doxepin 25mg capsule PO SCH (21:00)
[2017-11-29] VITALS: BP 111/66
[2017-11-29] MEDS: hydrOXYzine 25 MG tablet PO SCH ×2 (00:37→08:48)
[2017-11-29] MEDS: methylPREDNISolone sod succ/PF 40mg inj. IV SCH ×2 (00:37→08:47)
[2017-11-29] MEDS: ipratropium/albuterol 3ml nebule NEB SCH ×3 (03:00→10:19)
[2017-11-29] MEDS: budesonide 0.5mg/2ml UD nebule IH SCH (05:36)
[2017-11-29] MEDS ORDERED: loperamide 2mg capsule PO PRN (06:15)
[2017-11-29 08:00] VITALS: BP 104/62
[2017-11-29] MEDS: HYDROcodone/acetaminophen 5mg/325mg tablet PO PRN (08:59)
[2017-11-29 11:00] VITALS: BP 112/74
[2017-11-29] MEDS ORDERED: PRED10TA23 PO (11:31)
[2017-11-29] MEDS ORDERED: METR500T4 PO (11:37)
[2017-11-29] MEDS ORDERED: ACET-1008 PO (11:55)
[2017-11-29] MEDS ORDERED: ACET-3067 PO (11:56)
[2017-12-01] MEDS ORDERED: BUPRENORPHINE TOP SCH (08:00)
== END 2017-11-29 13:46 | disposition home health service (06) ==
LOC: ER 21:14 → ED HOLD 11-28 01:53 → SUR 3N 11-28 11:09
PROVIDERS: ADMIT Family Medicine; ATTEND Legal Medicine
DX: J44.1 Chronic obstructive pulmonary disease with (acute) exacerbation (principal); K21.9 Gastro-esophageal reflux disease without esophagitis; J40 Bronchitis, not specified as acute or chronic; G43.909 Migraine, unspecified, not intractable, without status migrainosus; M19.90 Unspecified osteoarthritis, unspecified site; J96.91 Respiratory failure, unspecified with hypoxia; J18.9 Pneumonia, unspecified organism; F41.9 Anxiety disorder, unspecified; F41.0 Panic disorder [episodic paroxysmal anxiety]; F31.9 Bipolar disorder, unspecified; M54.9 Dorsalgia, unspecified; G89.29 Other chronic pain; Z86.73 Personal history of transient ischemic attack (TIA), and cerebral infarction without residual deficits; Z87.891 Personal history of nicotine dependence; Z99.81 Dependence on supplemental oxygen
CPT/HCPCS: 87070; 93005; 94640; 94644; 94760; 96372; 96374; 96376; 99291; A6255; G0378; J2920; J2930; J7626; Q0177; 99285

== ENCOUNTER 2017-12-04 10:11 | Day surgery (SDC) | payer MEDICAID ==
[~2017-12-04 10:11] MED LIST changes: +ACET-1008 PO; +ACET-3067 PO; -ARIP15TA3 PO; -CEPH500C5 PO; -CLIN150C2 PO; -DIPH1TAB PO; -DOXY100C2 PO; -GUAI600T45 PO; -HYDR-3965 PO; +METR500T4 PO; -NEOM1OIN8 TP; +PRED10TA23 PO; -TIOT4MIS5 IH; +ZOLP10TA5 PO
[2017-12-04] MEDS ORDERED: LIDOcaine 2% 5ml jelly ONE (11:37)
== END 2017-12-04 11:57 | disposition home or self-care (01) ==
LOC: WOUND CARE 10:11
PROVIDERS: ATTEND Surgery
DX: S81.002D Unspecified open wound, left knee, subsequent encounter (principal); J44.9 Chronic obstructive pulmonary disease, unspecified; K21.9 Gastro-esophageal reflux disease without esophagitis; G43.909 Migraine, unspecified, not intractable, without status migrainosus; M19.90 Unspecified osteoarthritis, unspecified site; F31.9 Bipolar disorder, unspecified; Z79.52 Long term (current) use of systemic steroids; Z79.899 Other long term (current) drug therapy; Z86.73 Personal history of transient ischemic attack (TIA), and cerebral infarction without residual deficits; Z87.891 Personal history of nicotine dependence; X58.XXXD Exposure to other specified factors, subsequent encounter
CPT/HCPCS: 97597; A6021; A6206; A6212

== ENCOUNTER 2017-12-11 11:33 | Day surgery (SDC) | payer MEDICAID ==
[~2017-12-11 11:33] MED LIST changes: -TRAM50TA2 PO
[2017-12-11] MEDS ORDERED: LIDOcaine 2% 5ml jelly ONE (12:04)
== END 2017-12-11 12:41 | disposition home or self-care (01) ==
LOC: WOUND CARE 11:33
PROVIDERS: ATTEND Surgery
DX: S81.012D Laceration without foreign body, left knee, subsequent encounter (principal); J44.9 Chronic obstructive pulmonary disease, unspecified; K21.9 Gastro-esophageal reflux disease without esophagitis; G43.909 Migraine, unspecified, not intractable, without status migrainosus; M19.90 Unspecified osteoarthritis, unspecified site; F31.9 Bipolar disorder, unspecified; Z79.52 Long term (current) use of systemic steroids; Z79.899 Other long term (current) drug therapy; Z86.73 Personal history of transient ischemic attack (TIA), and cerebral infarction without residual deficits; Z87.891 Personal history of nicotine dependence; X58.XXXD Exposure to other specified factors, subsequent encounter
CPT/HCPCS: 17250; A6021; A6206; A6212

== ENCOUNTER 2018-05-03 20:44 | Emergency (ER) | payer MEDICAID ==
[~2018-05-03] VITALS: Ht 170.2 cm; Wt 96.4 kg
[~2018-05-03 20:44] MED LIST changes: -ACET-3067 PO; -ALBU4TAB4 PO; -DOXE75CA3 PO; +FLUT1BLS3 INH; -METR500T4 PO; +PANT20TA2 PO; -PRED10TA23 PO
[2018-05-03] MEDS ORDERED: BUPR1FIL17 SL (21:04)
[2018-05-03] MEDS ORDERED: DOXE75CA3 PO (21:04)
[2018-05-03] MEDS ORDERED: [UNRECOGNIZED DRUG - OTHER] (21:06)
[2018-05-03] MEDS ORDERED: ARIP10TA8 PO (21:06)
[2018-05-03 21:20] LABS: BASOPHILS % (AUTO) 0 % (0-1); EOSINOPHILS # (AUTO) 0.5 X10'3 (0-0.9); EOSINOPHILS % (AUTO) 6.4 % (0-6); HEMATOCRIT 36.8 % (35.0-45.0); HEMOGLOBIN 12.2 g/dl (12.0-16.0); LYMPHOCYTES # (AUTO) 1.5 X10'3 (1.1-4.8); LYMPHOCYTES % (AUTO) 18.8 % (21-51); MEAN CORPUSCULAR HEMOGLOBIN 27.9 PG (27.0-31.0); MEAN CORPUSCULAR HGB CONC 33.1 % (33.0-36.5); MEAN CORPUSCULAR VOLUME 84.6 FL (78-98); MEAN PLATELET VOLUME 6.9 FL (7.4-10.4); MONOCYTES # (AUTO) 0.5 X10'3 (0-0.9); NEUTROPHILS # (AUTO) 5.6 X10'3 (1.8-7.7); NEUTROPHILS % (AUTO) 68.8 % (42-75); PLATELET COUNT 414 X10'3 (140-440); RED BLOOD COUNT 4.36 X10'6 (4.20-5.60); RED CELL DISTRIBUTION WIDTH 15.7 % (11.5-14.5); WHITE BLOOD COUNT 8.2 X10'3 (4.5-11.0)
[2018-05-03 21:35] LABS: ALANINE AMINOTRANSFERASE 26 U/L (12-78); ALBUMIN 2.9 G/DL (3.4-5.0); ALBUMIN/GLOBULIN RATIO 0.8 (1.1-1.5); ALKALINE PHOSPHATASE 77 IU/L (46-116); ANION GAP 6 (8-16); ASPARTATE AMINO TRANSFERASE 12 U/L (10-37); BILIRUBIN,TOTAL 0.2 MG/DL (0.1-1.0); BLOOD UREA NITROGEN 5 MG/DL (7-18); BUN/CREATININE RATIO 8.5 (6.6-38.0); CALCIUM 8.7 MG/DL (8.5-10.1); CHLORIDE 101 MMOL/L (99-107); CREATININE 0.59 MG/DL (0.40-0.90); GLUCOSE 148 MG/DL (70-104); POTASSIUM 3.7 MMOL/L (3.5-5.1); SODIUM 139 MMOL/L (135-145); TOTAL CARBON DIOXIDE 32.5 MMOL/L (24-32); TOTAL PROTEIN 6.6 G/DL (6.4-8.2); eGFR > 90 ML/MIN
[2018-05-03 21:47] LABS: D-DIMER 0.57 MG/L FEU (0-0.50)
[2018-05-03] MEDS ORDERED: iohexol 350MG/ML 100ml bottle IV ONE (22:45)
[2018-05-03 23:21] VITALS: BP 122/73
[2018-05-04] MEDS ORDERED: acetaminophen 325mg tablet PO ONE (00:20)
== END 2018-05-04 00:46 | disposition home or self-care (01) ==
LOC: ER 20:45
DX: R07.89 Other chest pain (principal); R60.0 Localized edema; J44.9 Chronic obstructive pulmonary disease, unspecified; K21.9 Gastro-esophageal reflux disease without esophagitis; M19.90 Unspecified osteoarthritis, unspecified site; G89.29 Other chronic pain; Z86.14 Personal history of Methicillin resistant Staphylococcus aureus infection; Z98.890 Other specified postprocedural states; Z88.2 Allergy status to sulfonamides; Z88.8 Allergy status to other drugs, medicaments and biological substances; Z79.899 Other long term (current) drug therapy
CPT/HCPCS: 36415; 71045; 71275; 80053; 84484; 85025; 85379; 93971; 99285; Q9967; 93005

== ENCOUNTER 2018-05-20 19:21 | Emergency (ER) | payer MEDICAID ==
[~2018-05-20] VITALS: Ht 167.6 cm; Wt 96.4 kg
[~2018-05-20 19:21] MED LIST changes: +ARIP10TA8 PO; +BUPR1FIL17 SL; -BUPR1PAT TOP; +DOXE75CA3 PO; -HYDR-565 PO; -PANT20TA2 PO; -ZOLP10TA5 PO; +[UNRECOGNIZED DRUG - OTHER]
[2018-05-20] MEDS ORDERED: ALBU8HFA PO (19:33)
[2018-05-20] MEDS ORDERED: PRED5TAB PO (19:33)
[2018-05-20] MEDS ORDERED: LEVO750T21 PO (19:33)
[2018-05-20] MEDS ORDERED: AZIT250T PO (20:13)
[2018-05-20] MEDS ORDERED: dexamethasone 4mg tablet PO ONE (20:15)
[2018-05-20 20:23] VITALS: BP 132/80
== END 2018-05-20 20:25 | disposition home or self-care (01) ==
LOC: ER 19:22
DX: J20.9 Acute bronchitis, unspecified (principal); G43.909 Migraine, unspecified, not intractable, without status migrainosus; J44.9 Chronic obstructive pulmonary disease, unspecified; K21.9 Gastro-esophageal reflux disease without esophagitis; G89.29 Other chronic pain; Z87.891 Personal history of nicotine dependence; Z88.2 Allergy status to sulfonamides; Z88.1 Allergy status to other antibiotic agents; Z79.2 Long term (current) use of antibiotics; Z79.899 Other long term (current) drug therapy
CPT/HCPCS: 71046; 93005; 99284; J8540

== ENCOUNTER 2018-06-21 20:53 | Emergency (ER) | payer MEDICAID ==
[~2018-06-21] VITALS: Ht 170.2 cm; Wt 91.0 kg
[~2018-06-21 20:53] MED LIST changes: +PRED5TAB PO
[2018-06-21 20:57] VITALS: BP 121/77
[2018-06-21] MEDS ORDERED: LORazepam 1 MG tablet PO ONE (21:30)
== END 2018-06-21 22:18 | disposition home or self-care (01) ==
LOC: ER 20:53
DX: F41.9 Anxiety disorder, unspecified (principal); R06.2 Wheezing; R06.02 Shortness of breath; R05 Cough; R07.9 Chest pain, unspecified; F41.0 Panic disorder [episodic paroxysmal anxiety]; F31.9 Bipolar disorder, unspecified; F29 Unspecified psychosis not due to a substance or known physiological condition; G89.29 Other chronic pain; G43.909 Migraine, unspecified, not intractable, without status migrainosus; J44.9 Chronic obstructive pulmonary disease, unspecified; K21.9 Gastro-esophageal reflux disease without esophagitis; M19.90 Unspecified osteoarthritis, unspecified site; Z88.2 Allergy status to sulfonamides; Z88.8 Allergy status to other drugs, medicaments and biological substances; Z88.1 Allergy status to other antibiotic agents; Z79.899 Other long term (current) drug therapy; Z86.73 Personal history of transient ischemic attack (TIA), and cerebral infarction without residual deficits; Z86.718 Personal history of other venous thrombosis and embolism; Z87.891 Personal history of nicotine dependence
CPT/HCPCS: 93005; 99284

== ENCOUNTER 2018-08-26 16:55 | Emergency (ER) | payer MEDICAID ==
[~2018-08-26] VITALS: Ht 170.2 cm; Wt 90.0 kg
[2018-08-26] MEDS: HYDROcodone/acetaminophen 10/325mg tab PO ONE ×2 (17:00→18:00)
[2018-08-26] MEDS ORDERED: HYDR-4353 PO (17:14)
[2018-08-26] MEDS ORDERED: ketorolac trometh inj. 60 MG/2 ML VIAL IM ONE (18:05)
[2018-08-26 19:05] VITALS: BP 96/70
== END 2018-08-26 19:10 | disposition home or self-care (01) ==
LOC: ER 16:56
DX: S93.602A Unspecified sprain of left foot, initial encounter (principal); J44.9 Chronic obstructive pulmonary disease, unspecified; G43.909 Migraine, unspecified, not intractable, without status migrainosus; K21.9 Gastro-esophageal reflux disease without esophagitis; G89.29 Other chronic pain; F41.9 Anxiety disorder, unspecified; M19.90 Unspecified osteoarthritis, unspecified site; F31.9 Bipolar disorder, unspecified; Z86.73 Personal history of transient ischemic attack (TIA), and cerebral infarction without residual deficits; Z88.2 Allergy status to sulfonamides; Z88.1 Allergy status to other antibiotic agents; Y93.84 Activity, sleeping; Y93.01 Activity, walking, marching and hiking; Y92.89 Other specified places as the place of occurrence of the external cause; Y99.8 Other external cause status
CPT/HCPCS: 73630; 96372; 99283; J1885

== ENCOUNTER 2018-12-24 09:32 | Inpatient (IN) | payer MEDICAID ==
[~2018-12-24] VITALS: Ht 170.2 cm; Wt 94.0 kg
[2018-12-24 09:58] LABS: BASOPHILS % (AUTO) 0.4 % (0-1); EOSINOPHILS # (AUTO) 0.7 X10'3 (0-0.9); EOSINOPHILS % (AUTO) 9.4 % (0-6); HEMATOCRIT 42.2 % (35.0-45.0); HEMOGLOBIN 13.6 g/dl (12.0-16.0); LYMPHOCYTES # (AUTO) 1.5 X10'3 (1.1-4.8); LYMPHOCYTES % (AUTO) 20.8 % (21-51); MEAN CORPUSCULAR HEMOGLOBIN 28.2 PG (27.0-31.0); MEAN CORPUSCULAR HGB CONC 32.1 g/dL (33.0-36.5); MEAN CORPUSCULAR VOLUME 87.8 FL (78-98); MEAN PLATELET VOLUME 6.8 FL (7.4-10.4); MONOCYTES # (AUTO) 0.6 X10'3 (0-0.9); MONOCYTES % (AUTO) 8.6 % (2-12); NEUTROPHILS # (AUTO) 4.4 X10'3 (1.8-7.7); NEUTROPHILS % (AUTO) 60.8 % (42-75); PLATELET COUNT 369 X10'3 (140-440); RED BLOOD COUNT 4.81 X10'6 (4.20-5.60); RED CELL DISTRIBUTION WIDTH 16.6 % (11.5-14.5); WHITE BLOOD COUNT 7.2 X10'3 (4.5-11.0)
[2018-12-24 10:09] LABS: PARTIAL THROMBOPLASTIN TIME 27 SECONDS (22-32)
[2018-12-24 10:10] LABS: ALANINE AMINOTRANSFERASE 49 U/L (12-78); ALBUMIN 3.3 G/DL (3.4-5.0); ALBUMIN/GLOBULIN RATIO 0.9 (1.1-1.5); ALKALINE PHOSPHATASE 101 IU/L (46-116); ANION GAP 4 (8-16); ASPARTATE AMINO TRANSFERASE 31 U/L (10-37); BILIRUBIN,TOTAL 0.3 MG/DL (0.1-1.0); BLOOD UREA NITROGEN 8 MG/DL (7-18); BUN/CREATININE RATIO 11.6 (6.6-38.0); CALCIUM 8.7 MG/DL (8.5-10.1); CHLORIDE 103 MMOL/L (99-107); CREATININE 0.69 MG/DL (0.40-0.90); GLUCOSE 134 MG/DL (70-104); POTASSIUM 4.3 MMOL/L (3.5-5.1); SODIUM 141 MMOL/L (135-145); TOTAL CARBON DIOXIDE 34.4 MMOL/L (24-32); TOTAL PROTEIN 6.9 G/DL (6.4-8.2); eGFR 88 ML/MIN
[2018-12-24 10:14] LABS: TROPONIN I < 0.04 NG/ML (0.0-0.05)
[2018-12-24] MEDS ORDERED: aspirin 325mg tablet PO ONE (10:35)
[2018-12-24] MEDS ORDERED: ASPI-1265 PO (10:41)
[2018-12-24] MEDS ORDERED: ALBU2TAB4 PO (11:31)
[2018-12-24] MEDS ORDERED: DIPH1TAB PO (11:31)
[2018-12-24] MEDS ORDERED: LORA10TA7 PO (11:31)
[2018-12-24] MEDS ORDERED: GUAI200T5 PO (11:32)
[2018-12-24] MEDS ORDERED: TIOT4MIS5 INH (11:32)
[2018-12-24] MEDS ORDERED: BUPR1TAB58 PO (11:32)
[2018-12-24] MEDS ORDERED: LYR75C PO (11:32)
[2018-12-24] MEDS ORDERED: ASPI81TA52 PO (11:32)
[2018-12-24] MEDS ORDERED: DOXE75CA3 PO (11:32)
[2018-12-24] MEDS ORDERED: LORA1TAB PO (11:32)
[2018-12-24] MEDS ORDERED: BUPR1FIL17 SL (11:32)
[2018-12-24] MEDS ORDERED: FLUT100B3 INH (11:32)
[2018-12-24] MEDS ORDERED: IBUP-1986 PO (11:32)
[2018-12-24] MEDS ORDERED: ESCI10TA PO (11:32)
[2018-12-24] MEDS ORDERED: NITR0.4T48 SL (11:32)
[2018-12-24] MEDS ORDERED: ZOLP10TA5 PO (11:32)
[2018-12-24] MEDS ORDERED: acetaminophen 325mg tablet PO PRN (11:35)
[2018-12-24] MEDS ORDERED: magnesium 4gm in 100ml NS 100 ML IV PRN (11:35)
[2018-12-24] MEDS ORDERED: mag hydrox/Alum hydrox/simeth 30ml oral suspension PO PRN (11:35)
[2018-12-24] MEDS ORDERED: magnesium 2GM in 50ml NS 50 ML IV PRN (11:35)
[2018-12-24] MEDS ORDERED: magnesium Cl slow-release 64mg tablet PO PRN (11:35)
[2018-12-24] MEDS ORDERED: magnesium hydroxide 30ml (MOM) UD suspension PO PRN (11:35)
[2018-12-24] MEDS ORDERED: potassium Cl 20 mEq SR tablet PO PRN ×2 (11:35)
[2018-12-24] MEDS ORDERED: ondansetron/PF 4mg/2ml inj IV PRN (11:35)
[2018-12-24] MEDS ORDERED: bisacodyl 10mg suppository rectal RC PRN (11:35)
[2018-12-24] MEDS ORDERED: potassium Cl 40MEQ/NS 500ml 500 ML IV PRN ×2 (11:35)
[2018-12-24] MEDS ORDERED: nitroGLYCERIN 0.4mg SUBLingual tab SL PRN (11:40)
[2018-12-24] MEDS ORDERED: diphenoxylate/atropine tablet (Lomotil) PO PRN (11:40)
[2018-12-24] MEDS ORDERED: hydrOXYzine 25 MG tablet PO PRN (11:40)
--- NOTE | 2018-12-24 11:40 | NUR ---
Patient in room . I have received report from Nhi ANTONY in ED and had the opportunity to ask questions and assume patient care.
--- NOTE | 2018-12-24 11:42 | NUR ---
updated pt med rec and gave copy to pt caregiver along with bag of medication caregiver taking home for pt.
[2018-12-24 12:15] VITALS: BP 109/62
--- NOTE | 2018-12-24 12:15 | NUR ---
Pt arrived on the unit via afua. A & O x 4. Pt is in good spirits, telling jokes, laughing.
[2018-12-24] MEDS: normal saline 1000ml 1,000 ML IV SCH (12:52)
[2018-12-24] MEDS ORDERED: BUPRENORPHINE HCL PO SCH (13:00)
[2018-12-24] MEDS ORDERED: NALOXONE HCL PO SCH (13:00)
[2018-12-24] MEDS: LORazepam 1 MG tablet PO SCH ×2 (13:11→20:23)
[2018-12-24] MEDS ORDERED: ALBUTEROL 2 MG TAB PO SCH (14:00)
[2018-12-24] MEDS: ipratropium 0.5 MG/2.5ML nebule IH SCH ×2 (14:31→20:08)
--- NOTE | 2018-12-24 16:08 | NUR ---
Student documentation: I have reviewed and agree with all interventions, assessments performed and documented by SN Alba.
[2018-12-24 18:00] VITALS: BP 111/66
--- NOTE | 2018-12-24 18:13 | NUR ---
Problems reprioritized. Patient report given, questions answered & plan of care reviewed with Roseann Rasheed RN.
--- NOTE | 2018-12-24 18:30 | NUR ---
Patient in room ORTHO 4009. I have received report from ARPAN Ma and had the opportunity to ask questions and assume patient care.
[2018-12-24] MEDS ORDERED: atorvastatin 20mg tablet PO SCH (20:00)
[2018-12-24] MEDS: docusate sod 100mg capsule PO SCH (20:23)
[2018-12-24] MEDS: pregabalin 75mg capsule PO SCH (20:23)
[2018-12-24] MEDS ORDERED: BUDESONIDE 0.25 MG/2 ML AMPUL.NEB IH SCH (21:00)
[2018-12-24] MEDS ORDERED: aripiprazole 5mg tablet PO SCH (21:00)
[2018-12-24] MEDS ORDERED: doxepin 25mg capsule PO SCH (21:00)
[2018-12-24] MEDS ORDERED: zolpidem 5mg tablet PO SCH (21:00)
[2018-12-24 22:00] VITALS: BP 98/53
[2018-12-25] VITALS: BP 94/62
[2018-12-25] MEDS: ipratropium 0.5 MG/2.5ML nebule IH SCH (02:42)
[2018-12-25] MEDS: normal saline 1000ml 1,000 ML IV SCH (03:18)
[2018-12-25 05:23] LABS: BASOPHILS % (AUTO) 0.4 % (0-1); EOSINOPHILS # (AUTO) 0.7 X10'3 (0-0.9); HEMATOCRIT 40.1 % (35.0-45.0); HEMOGLOBIN 12.9 g/dl (12.0-16.0); LYMPHOCYTES # (AUTO) 1.6 X10'3 (1.1-4.8); LYMPHOCYTES % (AUTO) 19.5 % (21-51); MEAN CORPUSCULAR HEMOGLOBIN 28.6 PG (27.0-31.0); MEAN CORPUSCULAR HGB CONC 32.2 g/dL (33.0-36.5); MEAN CORPUSCULAR VOLUME 88.8 FL (78-98); MEAN PLATELET VOLUME 6.8 FL (7.4-10.4); MONOCYTES # (AUTO) 0.8 X10'3 (0-0.9); MONOCYTES % (AUTO) 10.2 % (2-12); NEUTROPHILS # (AUTO) 4.9 X10'3 (1.8-7.7); NEUTROPHILS % (AUTO) 60.9 % (42-75); PLATELET COUNT 320 X10'3 (140-440); RED BLOOD COUNT 4.52 X10'6 (4.20-5.60); RED CELL DISTRIBUTION WIDTH 16.1 % (11.5-14.5); WHITE BLOOD COUNT 8.1 X10'3 (4.5-11.0)
[2018-12-25 05:36] LABS: ALANINE AMINOTRANSFERASE 46 U/L (12-78); ALBUMIN/GLOBULIN RATIO 0.9 (1.1-1.5); ALKALINE PHOSPHATASE 98 IU/L (46-116); ANION GAP 0 (8-16); ASPARTATE AMINO TRANSFERASE 28 U/L (10-37); BILIRUBIN,TOTAL 0.3 MG/DL (0.1-1.0); BLOOD UREA NITROGEN 12 MG/DL (7-18); BUN/CREATININE RATIO 16.9 (6.6-38.0); CALCIUM 8.7 MG/DL (8.5-10.1); CHLORIDE 103 MMOL/L (99-107); CHOL/HDL RATIO 3.8 (0.00-4.99); CHOLESTEROL 165 MG/DL (0-200); CREATININE 0.71 MG/DL (0.40-0.90); GLUCOSE 101 MG/DL (70-104); HDL CHOLESTEROL 44 MG/DL (35-60); LDL CHOLESTEROL 109 MG/DL (50-100); MAGNESIUM 2.3 MG/DL (1.5-2.4); POTASSIUM 4.4 MMOL/L (3.5-5.1); SODIUM 141 MMOL/L (135-145); TOTAL CARBON DIOXIDE 38.2 MMOL/L (24-32); TOTAL PROTEIN 6.5 G/DL (6.4-8.2); TRIGLYCERIDES 72 MG/DL (20-135); eGFR 85 ML/MIN
--- NOTE | 2018-12-25 06:08 | NUR ---
Patient in room ORTHO 4009. I have received report from ARPAN Ma and had the opportunity to ask questions and assume patient care.
--- NOTE | 2018-12-25 06:10 | NUR ---
Patient in room ORTHO 4009. I have received report from Roseann Rasheed RN and had the opportunity to ask questions and assume patient care.
[2018-12-25] MEDS: LORazepam 1 MG tablet PO SCH (07:55)
[2018-12-25] MEDS: docusate sod 100mg capsule PO SCH (07:55)
[2018-12-25] MEDS: pregabalin 75mg capsule PO SCH (07:56)
[2018-12-25 08:00] VITALS: BP 121/77
[2018-12-25] MEDS ORDERED: K and/or MAG REPLACEMENT MC SCH (08:00)
[2018-12-25] MEDS ORDERED: enoxaparin 40mg/0.4ml syringe SUBCUT SCH (08:00)
[2018-12-25] MEDS ORDERED: citalopram 20mg tablet PO SCH (08:00)
[2018-12-25] MEDS ORDERED: FLUTICASONE FUROATE INH SCH (08:00)
[2018-12-25] MEDS ORDERED: aspirin 325mg tablet, delayed-release (Ecotrin) PO SCH (08:00)
[2018-12-25] MEDS ORDERED: non-formulary drug (Tiotropium Bromide (Spiriva Respimat) 2 PUFF) INH SCH (08:00)
[2018-12-25] MEDS ORDERED: loratadine 10mg tablet PO SCH (08:00)
[2018-12-25] MEDS ORDERED: ATOR20TA66 PO ×2 (09:42→09:49)
--- NOTE | 2018-12-25 10:33 | NUR ---
DC orders in, pt awaiting DME for a walker and [facility] for new Rx
[2018-12-25 12:00] VITALS: BP 107/62
--- NOTE | 2018-12-25 12:11 | NUR ---
Pt's DME - walker, just arrived, pt awaiting greens picker by family member. Pt's Rx from [facility] has been delivered.
--- NOTE | 2018-12-25 12:52 | NUR ---
Pt's family member arrived, pt was wheeled downstairs to be driven home by family. Pt is alert and oriented, no complaints of pain or discomfort at this time. All of pt's belongings were returned to pt. Reviewed discharge instructions with pt.
== END 2018-12-25 12:50 | disposition home or self-care (01) | DRG 47 ==
LOC: ER 09:34 → ORTHO 4S 12:11
PROVIDERS: ADMIT Internal Medicine; ATTEND Internal Medicine
DX: G45.9 Transient cerebral ischemic attack, unspecified (principal); J43.9 Emphysema, unspecified; F41.0 Panic disorder [episodic paroxysmal anxiety]; F31.9 Bipolar disorder, unspecified; G89.4 Chronic pain syndrome; K21.9 Gastro-esophageal reflux disease without esophagitis; Z60.2 Problems related to living alone; F29 Unspecified psychosis not due to a substance or known physiological condition; G43.909 Migraine, unspecified, not intractable, without status migrainosus; M19.90 Unspecified osteoarthritis, unspecified site; M54.9 Dorsalgia, unspecified; R47.81 Slurred speech; Z86.73 Personal history of transient ischemic attack (TIA), and cerebral infarction without residual deficits; Z87.891 Personal history of nicotine dependence; Z79.899 Other long term (current) drug therapy; Z88.2 Allergy status to sulfonamides; Z88.1 Allergy status to other antibiotic agents; Z88.8 Allergy status to other drugs, medicaments and biological substances; Z79.82 Long term (current) use of aspirin
CPT/HCPCS: 36415; 70450; 70544; 70551; 71045; 80053; 80061; 82948; 83735; 84484; 85025; 85610; 85651; 85730; 87070; 93005; 93306; 93880; 94640; 94760; 97116; 97161; 99285; G0378; J1650; J7030

== ENCOUNTER 2019-01-10 14:03 | Inpatient (IN) | payer MEDICAID ==
[~2019-01-10] VITALS: Ht 167.6 cm; Wt 95.0 kg
[~2019-01-10 14:03] MED LIST changes: -ACET-1008 PO; +ALBU2TAB4 PO; -ALBU8.5H8 IH; +ASPI-1265 PO; +ATOR20TA66 PO; -BUPR1FIL17 SL; +BUPR1TAB58 PO; +DIPH1TAB PO; +ESCI10TA PO; +FLUT100B3 INH; -FLUT1BLS3 INH; -IBUP-1985 PO; +LORA10TA7 PO; +LORA1TAB PO; +LYR75C PO; +NITR0.4T48 SL; -PRED5TAB PO; +TIOT4MIS5 INH; +ZOLP10TA5 PO; -[UNRECOGNIZED DRUG - OTHER]
[2019-01-10] MEDS ORDERED: LORazepam 2 mg/ml vial IV ONE (14:25)
[2019-01-10] MEDS ORDERED: nitroGLYCERIN 1gm ointment UD TP ONE (14:25)
[2019-01-10 14:39] LABS: BASOPHILS % (AUTO) 0.6 % (0-1); EOSINOPHILS # (AUTO) 0.8 X10'3 (0-0.9); EOSINOPHILS % (AUTO) 9.9 % (0-6); HEMATOCRIT 37.3 % (35.0-45.0); HEMOGLOBIN 11.9 g/dl (12.0-16.0); LYMPHOCYTES # (AUTO) 1.4 X10'3 (1.1-4.8); LYMPHOCYTES % (AUTO) 18.5 % (21-51); MEAN CORPUSCULAR HEMOGLOBIN 27.8 PG (27.0-31.0); MEAN CORPUSCULAR HGB CONC 31.8 g/dL (33.0-36.5); MEAN CORPUSCULAR VOLUME 87.4 FL (78-98); MEAN PLATELET VOLUME 6.8 FL (7.4-10.4); MONOCYTES # (AUTO) 0.6 X10'3 (0-0.9); MONOCYTES % (AUTO) 8.4 % (2-12); NEUTROPHILS # (AUTO) 4.8 X10'3 (1.8-7.7); NEUTROPHILS % (AUTO) 62.6 % (42-75); PLATELET COUNT 329 X10'3 (140-440); RED BLOOD COUNT 4.27 X10'6 (4.20-5.60); RED CELL DISTRIBUTION WIDTH 16.2 % (11.5-14.5); WHITE BLOOD COUNT 7.6 X10'3 (4.5-11.0)
[2019-01-10 14:55] LABS: ALANINE AMINOTRANSFERASE 43 U/L (12-78); ALBUMIN 2.8 G/DL (3.4-5.0); ALBUMIN/GLOBULIN RATIO 0.8 (1.1-1.5); ALKALINE PHOSPHATASE 98 IU/L (46-116); ANION GAP 0 (8-16); ASPARTATE AMINO TRANSFERASE 27 U/L (10-37); BILIRUBIN,TOTAL 0.4 MG/DL (0.1-1.0); BLOOD UREA NITROGEN 7 MG/DL (7-18); BUN/CREATININE RATIO 12.5 (6.6-38.0); CALCIUM 8.6 MG/DL (8.5-10.1); CHLORIDE 102 MMOL/L (99-107); CREATININE 0.56 MG/DL (0.40-0.90); GLUCOSE 91 MG/DL (70-104); POTASSIUM 4.9 MMOL/L (3.5-5.1); SODIUM 140 MMOL/L (135-145); TOTAL CARBON DIOXIDE 37.7 MMOL/L (24-32); TOTAL PROTEIN 6.4 G/DL (6.4-8.2); eGFR > 90 ML/MIN
[2019-01-10 15:01] LABS: PARTIAL THROMBOPLASTIN TIME 26 SECONDS (22-32)
--- NOTE | 2019-01-10 17:13 | NUR ---
PATIENT SPO2 ON ROOM AIR 79%. PATIENT PLACED BACK ON 4LNC. DR KRAUS NOTIFIED. PATIENT STATES SHE DOES NOT WEAR OXYGEN AT HOME AND HER HOME SPO2 IS 83% AND HER PRIMARY MD IS AWARE.
--- NOTE | 2019-01-10 19:18 | NUR ---
PATIENT GOT UP TO BATHROOM. CAME BACK AND SPO2 75% ON ROOM AIR. INCREASED TO 83% AT REST IN CHAIR. DR KRAUS NOTIFIED.
[2019-01-10 20:06] LABS: ABG HCO3 37.9 mmol/L (22.0-26.0); ABG PCO2 (T) 71.1 mmHg (32.0-45.0); ABG PH (T) 7.341 (7.350-7.450); ABG PO2 (T) 54.2 mmHg (83-108); ALLEN'S TEST Positive; FCOHb 0.9 % (0.5-1.5); FLOW 3 L/min; FMetHb 0.1 % (0.3-1.12); FO2Hb 86.1 % (94-100); PATIENT TEMPERATURE 36.2; TOTAL HEMOGLOBIN 13.8 G/dl (12.0-16.0)
[2019-01-10 20:06] LABS: D-DIMER 0.49 MG/L FEU (0-0.50)
[2019-01-10] MEDS ORDERED: morphine 2 MG/ML inj. syringe IV PRN ×2 (20:50)
[2019-01-10] MEDS ORDERED: HYDROcodone/acetaminophen 5mg/325mg tablet PO PRN (20:50)
[2019-01-10] MEDS ORDERED: mag hydrox/Alum hydrox/simeth 30ml oral suspension PO PRN (20:50)
[2019-01-10] MEDS ORDERED: magnesium hydroxide 30ml (MOM) UD suspension PO PRN (20:50)
[2019-01-10] MEDS ORDERED: acetaminophen 325mg tablet PO PRN (20:50)
[2019-01-10] MEDS ORDERED: ondansetron/PF 4mg/2ml inj IV PRN (20:50)
[2019-01-10] MEDS ORDERED: diphenoxylate/atropine tablet (Lomotil) PO PRN (20:55)
[2019-01-10] MEDS ORDERED: nitroGLYCERIN 0.4mg SUBLingual tab SL PRN (20:55)
[2019-01-10] MEDS ORDERED: zolpidem 5mg tablet PO SCH (21:33)
[2019-01-10] MEDS ORDERED: zolpidem 5mg tablet PO PRN (21:40)
[2019-01-10] MEDS: ALBUTEROL SULFATE 4 MG PO SCH (21:40)
[2019-01-10] MEDS: ipratropium 0.5 MG/2.5ML nebule IH SCH (21:41)
[2019-01-10 22:05] VITALS: BP 104/58
[2019-01-10] MEDS: furosemide 20 MG/2 ML vial IV SCH (22:31)
--- NOTE | 2019-01-10 23:12 | NUR ---
patient Marla Wright need Bipap order please Hanna phone [phone]
[2019-01-11] MEDS: doxepin 25mg capsule PO SCH ×2 (00:23→20:11)
[2019-01-11 02:00] VITALS: BP 101/61
[2019-01-11] MEDS ORDERED: ALBUTEROL 2 MG/5 ML PO SCH (02:00)
[2019-01-11] MEDS: ALBUTEROL SULFATE 4 MG PO SCH ×4 (02:00→21:55)
[2019-01-11] MEDS: ipratropium 0.5 MG/2.5ML nebule IH SCH ×4 (02:59→20:27)
[2019-01-11 06:29] LABS: BASOPHILS % (AUTO) 0.4 % (0-1); EOSINOPHILS # (AUTO) 0.6 X10'3 (0-0.9); EOSINOPHILS % (AUTO) 8.9 % (0-6); HEMATOCRIT 37.1 % (35.0-45.0); LYMPHOCYTES # (AUTO) 1.3 X10'3 (1.1-4.8); LYMPHOCYTES % (AUTO) 19.3 % (21-51); MEAN CORPUSCULAR HGB CONC 32.3 g/dL (33.0-36.5); MEAN CORPUSCULAR VOLUME 86.7 FL (78-98); MEAN PLATELET VOLUME 6.8 FL (7.4-10.4); MONOCYTES # (AUTO) 0.6 X10'3 (0-0.9); MONOCYTES % (AUTO) 9.2 % (2-12); NEUTROPHILS # (AUTO) 4.2 X10'3 (1.8-7.7); NEUTROPHILS % (AUTO) 62.2 % (42-75); PLATELET COUNT 310 X10'3 (140-440); RED BLOOD COUNT 4.28 X10'6 (4.20-5.60); RED CELL DISTRIBUTION WIDTH 15.9 % (11.5-14.5); WHITE BLOOD COUNT 6.7 X10'3 (4.5-11.0)
[2019-01-11 06:46] LABS: ALBUMIN 2.8 G/DL (3.4-5.0); ANION GAP 1 (8-16); BLOOD UREA NITROGEN 10 MG/DL (7-18); BUN/CREATININE RATIO 15.9 (6.6-38.0); CALCIUM 8.2 MG/DL (8.5-10.1); CHLORIDE 100 MMOL/L (99-107); CREATININE 0.63 MG/DL (0.40-0.90); GLUCOSE 94 MG/DL (70-104); POTASSIUM 4.4 MMOL/L (3.5-5.1); SODIUM 140 MMOL/L (135-145); TOTAL CARBON DIOXIDE 39.5 MMOL/L (24-32); eGFR > 90 ML/MIN
--- NOTE | 2019-01-11 06:46 | NUR ---
Patient in room PCU 3016B. I have received report from Delmy ANTONY and had the opportunity to ask questions and assume patient care.
[2019-01-11 07:00] VITALS: BP 92/52
[2019-01-11] MEDS: furosemide 20 MG/2 ML vial IV SCH ×2 (08:00→20:12)
[2019-01-11] MEDS: atorvastatin 20mg tablet PO SCH (08:05)
[2019-01-11] MEDS: loratadine 10mg tablet PO SCH (08:05)
[2019-01-11] MEDS: pregabalin 75mg capsule PO SCH ×2 (08:06→20:13)
[2019-01-11] MEDS: citalopram 20mg tablet PO SCH (08:06)
[2019-01-11] MEDS: aspirin 81mg tab.chew PO SCH (08:06)
[2019-01-11] MEDS: enoxaparin 40mg/0.4ml syringe SUBCUT SCH (08:07)
[2019-01-11] MEDS: budesonide 0.5mg/2ml UD nebule IH SCH ×2 (09:16→20:27)
[2019-01-11 11:00] VITALS: BP 98/60
--- NOTE | 2019-01-11 12:27 | NUR ---
Patient had many medication in bag from home. Received in report that patient refused to send medications to pharmacy, stating that she does not want her medications to be lost. I spoke with patient, and she agreed to send medications to pharmacy. Patient witnessed this RN filling out the medication forms for pharmacy, and patient signed to witness that all her meds were sent down.
--- NOTE | 2019-01-11 14:18 | NUR ---
Paged Dr Dorado regarding patient request for Ativan PAGER ID: [phone] MESSAGE: Sherine [phone]. Aki Wilcox [phone]. Patient is requesting Ativan. Would you like new order? Thank you New order for 1 mg PO q8hr PRN for anxiety/agitation.
[2019-01-11 15:00] VITALS: BP 99/62
[2019-01-11] MEDS: LORazepam 1 MG tablet PO PRN (15:10)
[2019-01-11 18:00] VITALS: BP_SYST 115; BP_DIAS 74; BP_DIAS 77
--- NOTE | 2019-01-11 18:27 | NUR ---
Problems reprioritized. Patient report given, questions answered & plan of care reviewed with Flores ANTONY and Lucy RN. Patient is resting in bed and in no acute distress.
[2019-01-11 23:00] VITALS: BP 107/71
[2019-01-12] MEDS: ALBUTEROL SULFATE 4 MG PO SCH ×3 (01:49→13:39)
[2019-01-12 02:00] VITALS: BP 123/69
[2019-01-12] MEDS: ipratropium 0.5 MG/2.5ML nebule IH SCH ×2 (02:23→08:45)
[2019-01-12 05:15] LABS: BASOPHILS % (AUTO) 0.3 % (0-1); EOSINOPHILS # (AUTO) 0.4 X10'3 (0-0.9); EOSINOPHILS % (AUTO) 5.9 % (0-6); HEMOGLOBIN 12.1 g/dl (12.0-16.0); LYMPHOCYTES # (AUTO) 1.3 X10'3 (1.1-4.8); LYMPHOCYTES % (AUTO) 17.8 % (21-51); MEAN CORPUSCULAR HEMOGLOBIN 27.4 PG (27.0-31.0); MEAN CORPUSCULAR VOLUME 85.6 FL (78-98); MEAN PLATELET VOLUME 6.8 FL (7.4-10.4); MONOCYTES # (AUTO) 0.7 X10'3 (0-0.9); MONOCYTES % (AUTO) 10.1 % (2-12); NEUTROPHILS # (AUTO) 4.8 X10'3 (1.8-7.7); NEUTROPHILS % (AUTO) 65.9 % (42-75); PLATELET COUNT 319 X10'3 (140-440); RED BLOOD COUNT 4.43 X10'6 (4.20-5.60); RED CELL DISTRIBUTION WIDTH 16.1 % (11.5-14.5); WHITE BLOOD COUNT 7.2 X10'3 (4.5-11.0)
[2019-01-12 05:22] LABS: ALBUMIN 2.9 G/DL (3.4-5.0); ANION GAP 2 (8-16); BLOOD UREA NITROGEN 14 MG/DL (7-18); BUN/CREATININE RATIO 19.7 (6.6-38.0); CALCIUM 8.5 MG/DL (8.5-10.1); CHLORIDE 100 MMOL/L (99-107); CREATININE 0.71 MG/DL (0.40-0.90); GLUCOSE 114 MG/DL (70-104); SODIUM 142 MMOL/L (135-145); TOTAL CARBON DIOXIDE 39.7 MMOL/L (24-32); eGFR 85 ML/MIN
[2019-01-12 06:00] VITALS: BP 101/63
--- NOTE | 2019-01-12 06:15 | NUR ---
Orientee documentation: I have reviewed and agree with all interventions, assessments performed and documented by uLcy ANTONY. Orientee Medication Administration: For this medication-pass time frame, all medication were reviewed, dispensed, administered and documented per hospital policy by Lucy ANTONY.
--- NOTE | 2019-01-12 06:15 | NUR ---
Problems reprioritized. Patient report given, questions answered & plan of care reviewed with Ruby Basurto.
--- NOTE | 2019-01-12 06:53 | NUR ---
Patient in room PCU 3016B. I have received report from Flores ANTONY & Lcuy ANTONY and had the opportunity to ask questions and assume patient care.
[2019-01-12] MEDS: atorvastatin 20mg tablet PO SCH (08:00)
[2019-01-12] MEDS: enoxaparin 40mg/0.4ml syringe SUBCUT SCH (08:00)
[2019-01-12] MEDS: pregabalin 75mg capsule PO SCH (08:00)
[2019-01-12] MEDS: aspirin 81mg tab.chew PO SCH (08:00)
[2019-01-12] MEDS: citalopram 20mg tablet PO SCH (08:00)
[2019-01-12] MEDS: loratadine 10mg tablet PO SCH (08:00)
[2019-01-12] MEDS: furosemide 20 MG/2 ML vial IV SCH (08:00)
[2019-01-12] MEDS: budesonide 0.5mg/2ml UD nebule IH SCH (08:45)
[2019-01-12] MEDS: LORazepam 1 MG tablet PO PRN (09:08)
[2019-01-12] MEDS ORDERED: FURO-150 PO (09:51)
--- NOTE | 2019-01-12 10:00 | NUR ---
O2 Sat at rest on room air:_84__% If below 89%: Recovery O2 Sat at rest on _3__LPM:_91_% via__nasal cannula (mask/nasal cannula, etc..) No further documentation is necessary. If O2 Sat did not drop below 89% on room air,ambulate patient on room air. O2 Sat while ambulating on room air:___% Recovery O2 Sat while ambulating on ___LPM:___% No further documentation is necessary. If patient does not drop below 89% while ambulating, he/she does not qualify for home O2.
--- NOTE | 2019-01-12 10:15 | NUR ---
Paged Dr Dorado regarding patient home O2 qualification PAGER ID: [phone] MESSAGE: Sherine [phone]. RE: Aki Wright 3016B. Saw discharge orders; CHANELLE Carlson qualified pt for home O2--case management is aware and working on setting that up
[2019-01-12 11:00] VITALS: BP 103/68
--- NOTE | 2019-01-12 12:41 | NUR ---
Paged Dr Dorado after walking with patient to determine discharge PAGER ID: [phone] MESSAGE: Taylorx [phone] Aki Wilcox [phone]. Patient walked with RN, O2 saturation stayed around 85%. patient states she did not feel SOB or dizzy. Se says when she walks longer distance at home, she feels dizzy but will sit down and take breaks.
--- NOTE | 2019-01-12 12:58 | NUR ---
PAGER ID: [phone] MESSAGE: Sherine [phone]. RE Aki Wright 3016B. Just wanted to confirm that we are moving forward with discharge...thank you!
--- NOTE | 2019-01-12 14:07 | NUR ---
Per MD, patient is stable for discharge. Walked with patient per MD to determine patients stability level without wearing oxygen. Patient tolerated walk well and was stable, and her insurance is not providing her with more oxygen for home--MD stated to discharge patient. Discharge packet printed and patient educated, all questions answered. New prescription provided to patient via [facility]. Patients home medications retrieved from pharmacy and given to patient, and patient's vape retrieved from chart and returned to patient. All belongings packed and sent with patient. IV d/c'd with catheter intact and tele monitor removed. Patient escorted via wheelchair accompanied by hospital staff and transported home via private vehicle.
== END 2019-01-12 14:10 | disposition home or self-care (01) | DRG 194 ==
LOC: ER 14:03 → MED 3N 21:34 → PCU 3S 21:51 → EDBEDREQ 21:53 → CMPBEDREQ 01-11 19:40
PROVIDERS: ADMIT Internal Medicine; ATTEND Hospitalist
PROC: 5A09357 Assistance with Respiratory Ventilation, Less than 24 Consecutive Hours, Continuous Positive Airway Pressure (ICD-10-PCS; principal; 2019-01-10)
PROC: 5A09357 Assistance with Respiratory Ventilation, Less than 24 Consecutive Hours, Continuous Positive Airway Pressure (ICD-10-PCS; 2019-01-11)
PROC: 5A09357 Assistance with Respiratory Ventilation, Less than 24 Consecutive Hours, Continuous Positive Airway Pressure (ICD-10-PCS; 2019-01-12)
DX: I50.811 Acute right heart failure (principal); J96.21 Acute and chronic respiratory failure with hypoxia; Z99.81 Dependence on supplemental oxygen; J43.9 Emphysema, unspecified; E78.5 Hyperlipidemia, unspecified; F41.0 Panic disorder [episodic paroxysmal anxiety]; G47.00 Insomnia, unspecified; J96.22 Acute and chronic respiratory failure with hypercapnia; K21.9 Gastro-esophageal reflux disease without esophagitis; F32.9 Major depressive disorder, single episode, unspecified; G43.909 Migraine, unspecified, not intractable, without status migrainosus; G89.29 Other chronic pain; M19.90 Unspecified osteoarthritis, unspecified site; Z79.899 Other long term (current) drug therapy; Z88.8 Allergy status to other drugs, medicaments and biological substances; Z86.73 Personal history of transient ischemic attack (TIA), and cerebral infarction without residual deficits; Z87.891 Personal history of nicotine dependence; Z79.82 Long term (current) use of aspirin
CPT/HCPCS: 36415; 36600; 71045; 80048; 80053; 82803; 83880; 84484; 85018; 85025; 85379; 85610; 85730; 87070; 93005; 94640; 94660; 94760; 96374; 99285; G0378; J1650; J1940; J2060; J7626

== ENCOUNTER 2019-02-01 15:20 | Emergency (ER) | payer MEDICAID ==
[~2019-02-01] VITALS: Ht 170.2 cm; Wt 95.0 kg
[~2019-02-01 15:20] MED LIST changes: -ARIP10TA8 PO; +FURO-150 PO; -HYDR50TA65 PO; -LORA1TAB PO
[2019-02-01 16:35] LABS: BASOPHILS # (AUTO) 0.1 X10'3 (0-0.2); BASOPHILS % (AUTO) 0.4 % (0-1); EOSINOPHILS # (AUTO) 0.4 X10'3 (0-0.9); EOSINOPHILS % (AUTO) 3.3 % (0-6); HEMATOCRIT 36.7 % (35.0-45.0); HEMOGLOBIN 11.8 g/dl (12.0-16.0); LYMPHOCYTES # (AUTO) 1.1 X10'3 (1.1-4.8); LYMPHOCYTES % (AUTO) 8.5 % (21-51); MEAN CORPUSCULAR HEMOGLOBIN 26.9 PG (27.0-31.0); MEAN CORPUSCULAR HGB CONC 32.3 g/dL (33.0-36.5); MEAN CORPUSCULAR VOLUME 83.2 FL (78-98); MEAN PLATELET VOLUME 6.6 FL (7.4-10.4); MONOCYTES % (AUTO) 7.2 % (2-12); NEUTROPHILS # (AUTO) 10.8 X10'3 (1.8-7.7); NEUTROPHILS % (AUTO) 80.6 % (42-75); PLATELET COUNT 347 X10'3 (140-440); RED CELL DISTRIBUTION WIDTH 16.4 % (11.5-14.5); WHITE BLOOD COUNT 13.4 X10'3 (4.5-11.0)
[2019-02-01 16:49] LABS: ALANINE AMINOTRANSFERASE 46 U/L (12-78); ALBUMIN 3.1 G/DL (3.4-5.0); ALBUMIN/GLOBULIN RATIO 0.8 (1.1-1.5); ALKALINE PHOSPHATASE 117 IU/L (46-116); ANION GAP 3 (8-16); ASPARTATE AMINO TRANSFERASE 35 U/L (10-37); BILIRUBIN,TOTAL 0.6 MG/DL (0.1-1.0); BLOOD UREA NITROGEN 9 MG/DL (7-18); BUN/CREATININE RATIO 15.3 (6.6-38.0); CALCIUM 8.5 MG/DL (8.5-10.1); CHLORIDE 96 MMOL/L (99-107); CREATININE 0.59 MG/DL (0.40-0.90); GLUCOSE 103 MG/DL (70-104); POTASSIUM 4.2 MMOL/L (3.5-5.1); SODIUM 133 MMOL/L (135-145); TOTAL CARBON DIOXIDE 34.1 MMOL/L (24-32); TOTAL PROTEIN 6.9 G/DL (6.4-8.2); eGFR > 90 ML/MIN
[2019-02-01 16:55] LABS: PARTIAL THROMBOPLASTIN TIME 27 SECONDS (22-32)
[2019-02-01 17:39] LABS: CLARITY,URINE CLEAR (Clear); COLOR,URINE STRAW (Yellow); GLUCOSE, URINE NEGATIVE (Neg); KETONES,URINE NEGATIVE (Neg); LEUKOCYTE ESTERASE ,URINE SMALL (Neg); NITRITES, URINE NEGATIVE (Neg); OCCULT BLOOD,URINE NEGATIVE (Neg); PROTEIN,URINE NEGATIVE (Neg); UROBILINOGEN,URINE 0.2 E.U/dL (0.2-1.0)
[2019-02-01 17:40] LABS: UA COLLECTION TYPE CLN CATCH MIDSTREAM
[2019-02-01 17:46] LABS: URINE AMPHETAMINE SCREEN NEGATIVE (Neg); URINE BARBITUATE SCREEN NEGATIVE (Neg); URINE BENZODIAZEPINES SCREEN NEGATIVE (Neg); URINE CANNABINOID SCREEN NEGATIVE (Neg); URINE COCAINE SCREEN NEGATIVE (Neg); URINE METHADONE SCREEN NEGATIVE (Neg); URINE OPIATE SCREEN NEGATIVE (Neg); URINE PHENCYCLIDINE SCREEN NEGATIVE (Neg)
[2019-02-01 17:56] LABS: BACTERIA,URINE FEW /HPF (Neg); RBC,URINE NONE SEEN /HPF (0-2); SQUAMOUS EPITHELIAL CELL,UR FEW /LPF (FEW); WBC,URINE 0-4 /HPF (0-4)
[2019-02-01 18:32] VITALS: BP 118/72
--- NOTE | 2019-02-01 18:34 | NUR ---
PTS' SATS 91-92% ON 2 LITERS NC, PT HAS FRIEND AT BEDSIDE AND SON AND GRANDAUGHTER JUST LEFT BEDSIDE. PT CAME IN EMS TODAY FOR HER CP AND SOB. SHE REPORTS SHE IS SET UP ON HOME O2 BUT THAT SHE HAS A ROOMATE WHO TOOK HER CURRENT SUPPLEMENTAL OXYEGEN SET UP AND THAT SHE CANNOT GET IT BACK FROM THIS WOMAN AND "SHE HAS A GUN AND WON'T GIVE IT BACK...I'VE CALLED THE POLICE AND THEY WONT DO ANYTHING...ANN MARIE TOLD THE O2 COMPANY AND THEY CANT DO ANYTHING. MY MEDICARE WONT PAY FOR A NEW SYSTEM BECAUSE I STILL HAVE THIS OTHER SYSTEM.". PT WITH STABLE VS. 2ND TROPONIN BEING DRAWN NOW. PT IS ANXIOUS FOR DISCHARGE.
== END 2019-02-01 19:53 | disposition home or self-care (01) ==
LOC: ER 15:21
DX: R07.89 Other chest pain (principal); G43.909 Migraine, unspecified, not intractable, without status migrainosus; J45.909 Unspecified asthma, uncomplicated; J44.9 Chronic obstructive pulmonary disease, unspecified; K21.9 Gastro-esophageal reflux disease without esophagitis; M19.90 Unspecified osteoarthritis, unspecified site; G89.29 Other chronic pain; F41.9 Anxiety disorder, unspecified; F32.9 Major depressive disorder, single episode, unspecified; Z86.73 Personal history of transient ischemic attack (TIA), and cerebral infarction without residual deficits; Z98.890 Other specified postprocedural states; Z87.891 Personal history of nicotine dependence; Z88.2 Allergy status to sulfonamides; Z88.1 Allergy status to other antibiotic agents; Z88.8 Allergy status to other drugs, medicaments and biological substances; Z79.82 Long term (current) use of aspirin; Z79.899 Other long term (current) drug therapy
CPT/HCPCS: 36415; 71045; 80053; 80305; 81001; 84484; 85025; 85610; 85730; 87077; 87088; 87186; 93005; 99284

== ENCOUNTER 2019-04-07 17:03 | Emergency (ER) | payer MEDICAID ==
[~2019-04-07] VITALS: Ht 162.6 cm; Wt 111.0 kg
[2019-04-07] MEDS ORDERED: aspirin 81mg tab.chew PO ONE (17:15)
[2019-04-07 17:42] LABS: BASOPHILS % (AUTO) 0.4 % (0-1); EOSINOPHILS # (AUTO) 0.5 X10'3 (0-0.9); EOSINOPHILS % (AUTO) 8.4 % (0-6); HEMATOCRIT 31.9 % (35.0-45.0); HEMOGLOBIN 10.3 g/dl (12.0-16.0); LYMPHOCYTES # (AUTO) 1.3 X10'3 (1.1-4.8); LYMPHOCYTES % (AUTO) 20.4 % (21-51); MEAN CORPUSCULAR HEMOGLOBIN 26.7 PG (27.0-31.0); MEAN CORPUSCULAR HGB CONC 32.3 g/dL (33.0-36.5); MEAN CORPUSCULAR VOLUME 82.7 FL (78-98); MEAN PLATELET VOLUME 6.4 FL (7.4-10.4); MONOCYTES # (AUTO) 0.5 X10'3 (0-0.9); MONOCYTES % (AUTO) 8.2 % (2-12); NEUTROPHILS % (AUTO) 62.6 % (42-75); PLATELET COUNT 278 X10'3 (140-440); RED BLOOD COUNT 3.87 X10'6 (4.20-5.60); RED CELL DISTRIBUTION WIDTH 16.9 % (11.5-14.5); WHITE BLOOD COUNT 6.4 X10'3 (4.5-11.0)
[2019-04-07 17:52] LABS: ALANINE AMINOTRANSFERASE 35 U/L (12-78); ALBUMIN 2.4 G/DL (3.4-5.0); ALBUMIN/GLOBULIN RATIO 0.7 (1.1-1.5); ALKALINE PHOSPHATASE 111 IU/L (46-116); ANION GAP 3 (8-16); ASPARTATE AMINO TRANSFERASE 19 U/L (10-37); BILIRUBIN,TOTAL 0.3 MG/DL (0.1-1.0); BLOOD UREA NITROGEN 3 MG/DL (7-18); BUN/CREATININE RATIO 5.7 (6.6-38.0); CALCIUM 7.1 MG/DL (8.5-10.1); CHLORIDE 109 MMOL/L (99-107); CREATININE 0.53 MG/DL (0.40-0.90); GLUCOSE 100 MG/DL (70-104); POTASSIUM 3.8 MMOL/L (3.5-5.1); SODIUM 144 MMOL/L (135-145); TOTAL CARBON DIOXIDE 31.7 MMOL/L (24-32); TOTAL PROTEIN 5.7 G/DL (6.4-8.2); eGFR > 90 ML/MIN
[2019-04-07 18:00] LABS: MAGNESIUM 1.9 MG/DL (1.5-2.4)
[2019-04-07 18:39] VITALS: BP 104/64
== END 2019-04-07 18:40 | disposition home or self-care (01) ==
LOC: ER 17:04
DX: R07.89 Other chest pain (principal); E66.9 Obesity, unspecified; G43.909 Migraine, unspecified, not intractable, without status migrainosus; J44.9 Chronic obstructive pulmonary disease, unspecified; K21.9 Gastro-esophageal reflux disease without esophagitis; M19.90 Unspecified osteoarthritis, unspecified site; G89.29 Other chronic pain; Z87.891 Personal history of nicotine dependence; Z98.890 Other specified postprocedural states; Z86.73 Personal history of transient ischemic attack (TIA), and cerebral infarction without residual deficits; Z88.2 Allergy status to sulfonamides; Z88.1 Allergy status to other antibiotic agents; Z79.82 Long term (current) use of aspirin; Z79.899 Other long term (current) drug therapy
CPT/HCPCS: 36415; 71045; 80053; 83735; 83880; 84484; 85025; 93005; 99284

== ENCOUNTER 2020-07-29 16:39 | Inpatient (IN) | payer MEDICAID ==
[~2020-07-29] VITALS: Ht 170.2 cm; Wt 127.3 kg
[2020-07-29 18:42] LABS: BASOPHILS % (AUTO) 0.2 % (0-1); EOSINOPHILS # (AUTO) 0.3 X10'3 (0-0.9); EOSINOPHILS % (AUTO) 2.5 % (0-6); HEMATOCRIT 34.1 % (35.0-45.0); HEMOGLOBIN 10.7 g/dl (12.0-16.0); LYMPHOCYTES % (AUTO) 8.9 % (21-51); MEAN CORPUSCULAR HEMOGLOBIN 29.1 PG (27.0-31.0); MEAN CORPUSCULAR HGB CONC 31.5 g/dL (33.0-36.5); MEAN CORPUSCULAR VOLUME 92.1 FL (78-98); MEAN PLATELET VOLUME 6.6 FL (7.4-10.4); MONOCYTES # (AUTO) 0.7 X10'3 (0-0.9); MONOCYTES % (AUTO) 6.7 % (2-12); NEUTROPHILS % (AUTO) 81.7 % (42-75); PLATELET COUNT 343 X10'3 (140-440); RED CELL DISTRIBUTION WIDTH 17.8 % (11.5-14.5)
[2020-07-29 18:54] LABS: ALANINE AMINOTRANSFERASE 36 U/L (12-78); ALBUMIN 2.7 G/DL (3.4-5.0); ALBUMIN/GLOBULIN RATIO 0.7 (1.1-1.5); ALKALINE PHOSPHATASE 102 IU/L (46-116); ANION GAP 4 (8-16); ASPARTATE AMINO TRANSFERASE 18 U/L (10-37); BILIRUBIN,TOTAL 0.6 MG/DL (0.1-1.0); BLOOD UREA NITROGEN 6 MG/DL (7-18); BUN/CREATININE RATIO 12.2 (6.6-38.0); CALCIUM 8.3 MG/DL (8.5-10.1); CHLORIDE 102 MMOL/L (99-107); CREATININE 0.49 MG/DL (0.40-0.90); GLUCOSE 126 MG/DL (70-104); POTASSIUM 3.8 MMOL/L (3.5-5.1); SODIUM 140 MMOL/L (135-145); TOTAL PROTEIN 6.8 G/DL (6.4-8.2); eGFR > 90 ML/MIN
[2020-07-29 18:56] LABS: CLARITY,URINE SLIGHTLY CLOUDY (Clear); COLOR,URINE YELLOW (Yellow); GLUCOSE, URINE NEGATIVE (Neg); KETONES,URINE >=80 mg/dl (Neg); LEUKOCYTE ESTERASE ,URINE TRACE (Neg); NITRITES, URINE NEGATIVE (Neg); OCCULT BLOOD,URINE NEGATIVE (Neg); PROTEIN,URINE NEGATIVE (Neg)
[2020-07-29 18:57] LABS: UA COLLECTION TYPE FOLEY CATH
[2020-07-29 19:03] LABS: RBC,URINE NONE SEEN /HPF (0-2); WBC,URINE 0-4 /HPF (0-4)
[2020-07-29 19:04] LABS: BACTERIA,URINE FEW /HPF (Neg); MUCUS STRANDS MANY /LPF (Neg); SQUAMOUS EPITHELIAL CELL,UR MANY /LPF (FEW)
[2020-07-29] MEDS ORDERED: PREG100C55 PO (19:36)
[2020-07-29] MEDS ORDERED: LORA-269 PO ×2 (19:36)
[2020-07-29] MEDS ORDERED: PRED20TA PO (19:36)
[2020-07-29] MEDS ORDERED: ESCI20TA45 PO (19:36)
[2020-07-29] MEDS ORDERED: GUAI200T5 PO (19:36)
[2020-07-29] MEDS ORDERED: BUDE10.26 INH (19:36)
--- NOTE | 2020-07-29 19:48 | NUR ---
MARIJUANA HANDED TO SECURITY FOR DISPOSAL
[2020-07-29] MEDS ORDERED: magnesium hydroxide 30ml (MOM) UD suspension PO PRN (20:05)
[2020-07-29] MEDS ORDERED: mag hydrox/Alum hydrox/simeth 30ml oral suspension PO PRN (20:05)
[2020-07-29] MEDS ORDERED: ondansetron/PF 4mg/2ml inj IV PRN (20:05)
[2020-07-29] MEDS ORDERED: guaiFENesin 200 MG/10 ML oral syrup UD cup PO PRN (20:10)
[2020-07-29] MEDS ORDERED: albuterol 2.5 MG/3 ML nebule NEB PRN (20:15)
--- NOTE | 2020-07-29 20:20 | NUR ---
[facility] [phone]
[2020-07-29] MEDS ORDERED: NALOXONE HCL PO SCH (21:00)
[2020-07-29] MEDS ORDERED: BUPRENORPHINE HCL PO SCH (21:00)
--- NOTE | 2020-07-30 01:48 | NUR ---
PT UP TO VOID BUT SHE REMAINS CONFUSED AND WHILE SITTING ON TOILET WILL STATE, "I NEED TO GO TO THE BATHROOM". PT INSTRUCTED THAT SHE IS ON THE TOILET AND TO VOID BUT SHE IS NOT ABLE TO DO SO. PT HAS PREVIOUSLY BEEN VOIDING WITHOUT INCIDENT. WILL CONTINUE TO MONITOR AND BLADDER SCAN IF PT CONTINUES TO ASK TO VOID AND NOT BE ABLE TO. PT PLACED ON HOSPITAL BED FOR COMFORT.
--- NOTE | 2020-07-30 03:55 | NUR ---
assisted pt to commode
[2020-07-30] MEDS ORDERED: FLUTICASONE FUROATE INH SCH (08:00)
[2020-07-30 08:26] LABS: BASOPHILS % (AUTO) 0.5 % (0-1); EOSINOPHILS # (AUTO) 0.3 X10'3 (0-0.9); EOSINOPHILS % (AUTO) 3.9 % (0-6); HEMATOCRIT 35.2 % (35.0-45.0); HEMOGLOBIN 11.3 g/dl (12.0-16.0); LYMPHOCYTES # (AUTO) 0.9 X10'3 (1.1-4.8); LYMPHOCYTES % (AUTO) 10.8 % (21-51); MEAN CORPUSCULAR HEMOGLOBIN 29.4 PG (27.0-31.0); MEAN CORPUSCULAR HGB CONC 32.1 g/dL (33.0-36.5); MEAN CORPUSCULAR VOLUME 91.7 FL (78-98); MEAN PLATELET VOLUME 6.7 FL (7.4-10.4); MONOCYTES # (AUTO) 0.5 X10'3 (0-0.9); NEUTROPHILS # (AUTO) 6.6 X10'3 (1.8-7.7); NEUTROPHILS % (AUTO) 78.8 % (42-75); PLATELET COUNT 345 X10'3 (140-440); RED BLOOD COUNT 3.84 X10'6 (4.20-5.60); RED CELL DISTRIBUTION WIDTH 17.8 % (11.5-14.5); WHITE BLOOD COUNT 8.3 X10'3 (4.5-11.0)
[2020-07-30 08:56] LABS: ALANINE AMINOTRANSFERASE 35 U/L (12-78); ALBUMIN 2.5 G/DL (3.4-5.0); ALBUMIN/GLOBULIN RATIO 0.6 (1.1-1.5); ALKALINE PHOSPHATASE 95 IU/L (46-116); ANION GAP 4 (8-16); ASPARTATE AMINO TRANSFERASE 17 U/L (10-37); BILIRUBIN,TOTAL 0.5 MG/DL (0.1-1.0); BLOOD UREA NITROGEN 7 MG/DL (7-18); BUN/CREATININE RATIO 14.6 (6.6-38.0); CALCIUM 8.7 MG/DL (8.5-10.1); CHLORIDE 104 MMOL/L (99-107); CREATININE 0.48 MG/DL (0.40-0.90); GLUCOSE 116 MG/DL (70-104); POTASSIUM 3.8 MMOL/L (3.5-5.1); SODIUM 143 MMOL/L (135-145); TOTAL CARBON DIOXIDE 35.4 MMOL/L (24-32); TOTAL PROTEIN 6.7 G/DL (6.4-8.2); eGFR > 90 ML/MIN
--- NOTE | 2020-07-30 09:41 | NUR ---
After obtaining permission from patient, caregiver Daylin updated on patient status and plan of care. washer carcass is Annette Wyatt [facility].
[2020-07-30] MEDS: aspirin 81mg tab.chew PO SCH (09:49)
[2020-07-30] MEDS: ESCITALOPRAM OXALATE 5 MG TABLET PO SCH (09:49)
[2020-07-30] MEDS: heparin, porcine 5000 units/ml vial SQ SCH ×2 (09:51→22:16)
[2020-07-30 09:56] LABS: TROPONIN I < 0.04 NG/ML (0.0-0.05)
--- NOTE | 2020-07-30 10:21 | NUR ---
After obtaining permission from patient, gave update to son Eliseo. Phone # is: [phone].
[2020-07-30] MEDS: acetaminophen 325mg tablet PO PRN (13:48)
[2020-07-30 14:17] VITALS: BP 122/64
--- NOTE | 2020-07-30 18:20 | NUR ---
Problems reprioritized. Patient report given, questions answered & plan of care reviewed with ARPAN KAYE.
[2020-07-30] MEDS: furosemide 20 MG/2 ML vial IV SCH ×2 (18:50→20:00)
[2020-07-30 19:00] VITALS: BP 126/73
[2020-07-30 19:16] LABS: ABG HCO3 36.2 mmol/L (22.0-26.0); ABG OXYGEN SATURATION 97.8 % (94-97); ABG PCO2 (T) 69.8 mmHg (32.0-45.0); ABG PO2 (T) 111.3 mmHg (75.0-100.0); ALLEN'S TEST POSITIVE; FCOHb 0.5 % (0.0-3.9); FLOW 4 L/min; FMetHb 0.3 % (0.0-1.5); PATIENT TEMPERATURE 36.8; TOTAL HEMOGLOBIN 12.1 G/dl (12.0-16.0)
--- NOTE | 2020-07-30 19:30 | NUR ---
DR CHILEL NOTIFIED: ABG COMPLETED FROM STAT ORDER AT 1530. PCO2 69.8, OXYGEN DECREASED FROM 4L NC TO 3LNC. PT AWAKE, A&O X3, APPROPRIATE. NO NEW ORDERS. WILL CONTINUE TO MONITOR.
[2020-07-30] MEDS ORDERED: enoxaparin 40mg/0.4ml syringe SUBCUT SCH (20:00)
[2020-07-30] MEDS: budesonide 0.5mg/2ml UD nebule IH SCH ×2 (21:27→21:28)
[2020-07-30] MEDS: traMADol 50MG tablet PO PRN (22:15)
[2020-07-30] MEDS ORDERED: buprenorphine/naloxone 2-0.5mg sublingual tablet SL SCH (22:15)
[2020-07-30] MEDS: nystatin 15 GM powder TP SCH (22:19)
[2020-07-30 23:00] VITALS: BP 127/84
[2020-07-31] MEDS: acetaminophen 325mg tablet PO PRN (01:20)
--- NOTE | 2020-07-31 06:26 | NUR ---
Problems reprioritized. Patient report given, questions answered & plan of care reviewed with
[2020-07-31 06:34] LABS: BASOPHILS % (AUTO) 0.3 % (0-1); EOSINOPHILS # (AUTO) 0.4 X10'3 (0-0.9); EOSINOPHILS % (AUTO) 6.7 % (0-6); HEMATOCRIT 34.5 % (35.0-45.0); HEMOGLOBIN 11.2 g/dl (12.0-16.0); LYMPHOCYTES # (AUTO) 0.8 X10'3 (1.1-4.8); LYMPHOCYTES % (AUTO) 14.1 % (21-51); MEAN CORPUSCULAR HEMOGLOBIN 30.2 PG (27.0-31.0); MEAN CORPUSCULAR HGB CONC 32.5 g/dL (33.0-36.5); MEAN CORPUSCULAR VOLUME 92.9 FL (78-98); MEAN PLATELET VOLUME 6.8 FL (7.4-10.4); MONOCYTES # (AUTO) 0.4 X10'3 (0-0.9); MONOCYTES % (AUTO) 7.4 % (2-12); NEUTROPHILS # (AUTO) 4.2 X10'3 (1.8-7.7); NEUTROPHILS % (AUTO) 71.5 % (42-75); PLATELET COUNT 334 X10'3 (140-440); RED BLOOD COUNT 3.71 X10'6 (4.20-5.60); RED CELL DISTRIBUTION WIDTH 17.6 % (11.5-14.5); WHITE BLOOD COUNT 5.9 X10'3 (4.5-11.0)
--- NOTE | 2020-07-31 06:37 | NUR ---
Patient in room CHEVY 350. I have received report from VARGAS ANTONY and had the opportunity to ask questions and assume patient care.
[2020-07-31 07:01] LABS: ALANINE AMINOTRANSFERASE 32 U/L (12-78); ALBUMIN 2.5 G/DL (3.4-5.0); ALBUMIN/GLOBULIN RATIO 0.6 (1.1-1.5); ALKALINE PHOSPHATASE 92 IU/L (46-116); ANION GAP 2 (8-16); ASPARTATE AMINO TRANSFERASE 20 U/L (10-37); BILIRUBIN,TOTAL 0.4 MG/DL (0.1-1.0); BLOOD UREA NITROGEN 9 MG/DL (7-18); CALCIUM 8.6 MG/DL (8.5-10.1); CHLORIDE 104 MMOL/L (99-107); GLUCOSE 93 MG/DL (70-104); POTASSIUM 3.5 MMOL/L (3.5-5.1); SODIUM 144 MMOL/L (135-145); TOTAL CARBON DIOXIDE 37.6 MMOL/L (24-32); TOTAL PROTEIN 6.7 G/DL (6.4-8.2); eGFR > 90 ML/MIN
[2020-07-31 07:55] VITALS: BP 106/51
[2020-07-31] MEDS: furosemide 20 MG/2 ML vial IV SCH ×2 (08:02→20:21)
[2020-07-31] MEDS: aspirin 81mg tab.chew PO SCH (08:02)
[2020-07-31] MEDS: buprenorphine/naloxone 2-0.5mg sublingual tablet SL SCH ×2 (08:02→20:21)
[2020-07-31] MEDS: ESCITALOPRAM OXALATE 5 MG TABLET PO SCH (08:02)
[2020-07-31] MEDS: heparin, porcine 5000 units/ml vial SQ SCH ×2 (08:03→20:21)
[2020-07-31] MEDS: nystatin 15 GM powder TP SCH ×3 (08:03→20:21)
[2020-07-31] MEDS: budesonide 0.5mg/2ml UD nebule IH SCH (08:46)
[2020-07-31 11:20] VITALS: BP 126/76
--- NOTE | 2020-07-31 12:56 | NUR ---
Luly Ren [phone] who is not on the contact list has requested notification when pt. discharges. Primary RN made aware.
[2020-07-31] MEDS: traMADol 50MG tablet PO PRN (13:15)
--- NOTE | 2020-07-31 13:20 | NUR ---
medicated for pain stated 10/10 ultram given
--- NOTE | 2020-07-31 16:51 | NUR ---
Dr kendall paged for change in pain med per patient request. 1700hrly check patient was lying down with out o2 on. O2 sats 73% RA. O2 placed back on patient initially 4L to recover , 94% reduced to 3L 92-94%. Alerted RT and charge nurse.
[2020-07-31] MEDS ORDERED: HYDROcodone/acetaminophen 10/325mg tab PO PRN (17:45)
[2020-07-31] MEDS: HYDROcodone/acetaminophen 10/325mg tab PO PRN (17:53)
--- NOTE | 2020-07-31 17:54 | NUR ---
PATIENTS PAIN MEDS REVIEWED BY DR DIANE MONROE STARTED FOR PAIN 04/27 SEE EMAR. WILL CONTINUE TO MONITOR
--- NOTE | 2020-07-31 18:04 | NUR ---
Problems reprioritized. Patient report given, questions answered & plan of care reviewed with ayush ANTONY.
[2020-07-31 20:00] VITALS: BP 143/84
[2020-08-01] VITALS: BP 129/86
--- NOTE | 2020-08-01 06:46 | NUR ---
Problems reprioritized. Patient report given, questions answered & plan of care reviewed with ARPAN Pichardo.
[2020-08-01 07:05] LABS: BASOPHILS % (AUTO) 0.3 % (0-1); EOSINOPHILS # (AUTO) 0.4 X10'3 (0-0.9); EOSINOPHILS % (AUTO) 9.4 % (0-6); HEMATOCRIT 36.6 % (35.0-45.0); HEMOGLOBIN 11.5 g/dl (12.0-16.0); LYMPHOCYTES # (AUTO) 0.7 X10'3 (1.1-4.8); LYMPHOCYTES % (AUTO) 16.3 % (21-51); MEAN CORPUSCULAR HEMOGLOBIN 28.9 PG (27.0-31.0); MEAN CORPUSCULAR HGB CONC 31.4 g/dL (33.0-36.5); MEAN CORPUSCULAR VOLUME 91.9 FL (78-98); MEAN PLATELET VOLUME 6.8 FL (7.4-10.4); MONOCYTES # (AUTO) 0.5 X10'3 (0-0.9); MONOCYTES % (AUTO) 11.4 % (2-12); NEUTROPHILS # (AUTO) 2.8 X10'3 (1.8-7.7); NEUTROPHILS % (AUTO) 62.6 % (42-75); PLATELET COUNT 380 X10'3 (140-440); RED BLOOD COUNT 3.98 X10'6 (4.20-5.60); WHITE BLOOD COUNT 4.5 X10'3 (4.5-11.0)
[2020-08-01 07:30] LABS: ALANINE AMINOTRANSFERASE 34 U/L (12-78); ALBUMIN 2.8 G/DL (3.4-5.0); ALBUMIN/GLOBULIN RATIO 0.6 (1.1-1.5); ALKALINE PHOSPHATASE 90 IU/L (46-116); ANION GAP 2 (8-16); ASPARTATE AMINO TRANSFERASE 23 U/L (10-37); BILIRUBIN,TOTAL 0.4 MG/DL (0.1-1.0); BLOOD UREA NITROGEN 9 MG/DL (7-18); BUN/CREATININE RATIO 15.8 (6.6-38.0); CALCIUM 8.8 MG/DL (8.5-10.1); CHLORIDE 102 MMOL/L (99-107); CREATININE 0.57 MG/DL (0.40-0.90); GLUCOSE 98 MG/DL (70-104); POTASSIUM 3.3 MMOL/L (3.5-5.1); SODIUM 143 MMOL/L (135-145); TOTAL PROTEIN 7.2 G/DL (6.4-8.2); eGFR > 90 ML/MIN
[2020-08-01 07:35] VITALS: BP 121/74
[2020-08-01] MEDS: budesonide 0.5mg/2ml UD nebule IH SCH (08:00)
[2020-08-01] MEDS: aspirin 81mg tab.chew PO SCH (08:08)
[2020-08-01] MEDS: heparin, porcine 5000 units/ml vial SQ SCH ×2 (08:08→19:36)
[2020-08-01] MEDS: ESCITALOPRAM OXALATE 5 MG TABLET PO SCH (08:08)
[2020-08-01] MEDS: furosemide 20 MG/2 ML vial IV SCH ×2 (08:08→19:35)
[2020-08-01] MEDS: buprenorphine/naloxone 2-0.5mg sublingual tablet SL SCH ×3 (08:08→19:48)
[2020-08-01] MEDS: nystatin 15 GM powder TP SCH ×3 (08:13→21:03)
[2020-08-01] MEDS ORDERED: potassium Cl 20 mEq SR tablet PO STA (09:35)
[2020-08-01] MEDS: HYDROcodone/acetaminophen 10/325mg tab PO PRN ×2 (09:59→19:43)
[2020-08-01 12:43] VITALS: BP 96/63
--- NOTE | 2020-08-01 18:20 | NUR ---
Patient in room CHEVY 350. I have received report from ARPAN Pichardo and had the opportunity to ask questions and assume patient care.
--- NOTE | 2020-08-01 18:20 | NUR ---
Problems reprioritized. Patient report given, questions answered & plan of care reviewed with Jenise De Jesus RN.
[2020-08-01 20:00] VITALS: BP 116/78
[2020-08-02] VITALS: BP 125/73
--- NOTE | 2020-08-02 06:11 | NUR ---
Problems reprioritized. Patient report given, questions answered & plan of care reviewed with ARPAN Pichardo.
[2020-08-02 06:50] LABS: BASOPHILS % (AUTO) 0.4 % (0-1); EOSINOPHILS # (AUTO) 0.4 X10'3 (0-0.9); HEMOGLOBIN 12.4 g/dl (12.0-16.0); LYMPHOCYTES # (AUTO) 1.1 X10'3 (1.1-4.8); LYMPHOCYTES % (AUTO) 22.8 % (21-51); MEAN CORPUSCULAR HGB CONC 31.9 g/dL (33.0-36.5); MEAN PLATELET VOLUME 6.8 FL (7.4-10.4); MONOCYTES # (AUTO) 0.6 X10'3 (0-0.9); MONOCYTES % (AUTO) 13.4 % (2-12); NEUTROPHILS # (AUTO) 2.6 X10'3 (1.8-7.7); NEUTROPHILS % (AUTO) 54.4 % (42-75); PLATELET COUNT 351 X10'3 (140-440); RED BLOOD COUNT 4.15 X10'6 (4.20-5.60); RED CELL DISTRIBUTION WIDTH 18.1 % (11.5-14.5); WHITE BLOOD COUNT 4.7 X10'3 (4.5-11.0)
[2020-08-02 07:09] LABS: ALANINE AMINOTRANSFERASE 49 U/L (12-78); ALBUMIN 2.9 G/DL (3.4-5.0); ALBUMIN/GLOBULIN RATIO 0.6 (1.1-1.5); ALKALINE PHOSPHATASE 97 IU/L (46-116); ANION GAP 6 (8-16); ASPARTATE AMINO TRANSFERASE 41 U/L (10-37); BILIRUBIN,TOTAL 0.3 MG/DL (0.1-1.0); BLOOD UREA NITROGEN 11 MG/DL (7-18); CALCIUM 9.2 MG/DL (8.5-10.1); CHLORIDE 99 MMOL/L (99-107); CREATININE 0.55 MG/DL (0.40-0.90); GLUCOSE 103 MG/DL (70-104); POTASSIUM 3.2 MMOL/L (3.5-5.1); SODIUM 144 MMOL/L (135-145); TOTAL PROTEIN 7.7 G/DL (6.4-8.2); eGFR > 90 ML/MIN
[2020-08-02 07:30] VITALS: BP 120/84
[2020-08-02] MEDS: aspirin 81mg tab.chew PO SCH (07:39)
[2020-08-02] MEDS: ESCITALOPRAM OXALATE 5 MG TABLET PO SCH (07:39)
[2020-08-02] MEDS: buprenorphine/naloxone 2-0.5mg sublingual tablet SL SCH (07:39)
[2020-08-02] MEDS: furosemide 20 MG/2 ML vial IV SCH (07:39)
[2020-08-02] MEDS: heparin, porcine 5000 units/ml vial SQ SCH (07:40)
[2020-08-02] MEDS: nystatin 15 GM powder TP SCH ×2 (07:41→13:43)
[2020-08-02] MEDS: budesonide 0.5mg/2ml UD nebule IH SCH (08:58)
[2020-08-02] MEDS ORDERED: potassium Cl 20 mEq SR tablet PO STA (09:10)
[2020-08-02] MEDS ORDERED: POTA10CA44 PO (09:33)
[2020-08-02] MEDS ORDERED: FURO-150 PO (09:33)
[2020-08-02] MEDS: HYDROcodone/acetaminophen 10/325mg tab PO PRN (10:42)
--- NOTE | 2020-08-02 10:57 | NUR ---
PAGER ID: [phone] MESSAGE: Monica WrightB : patient is asking if she can have pain medication on discharge. thanks, enoch [phone]
[2020-08-02 12:00] VITALS: BP 137/77
--- NOTE | 2020-08-02 13:41 | NUR ---
patient stable and appropriate for discharge home. iv removed, all belongings taken from room, home medications were returned back to patient. new prescriptions were transmitted to preferred pharmacy. Discharge instructions and education have been given and reviewed with patient, all questions answered. she is aware of the next due doses on all medications.
== END 2020-08-02 13:45 | disposition home or self-care (01) | DRG 194 ==
LOC: ER 16:40 → ED HOLD 20:03 → SUR 3N 07-30 14:05
PROVIDERS: ADMIT Internal Medicine; ATTEND Internal Medicine
DX: I50.813 Acute on chronic right heart failure (principal); J96.90 Respiratory failure, unspecified, unspecified whether with hypoxia or hypercapnia; I26.09 Other pulmonary embolism with acute cor pulmonale; F31.9 Bipolar disorder, unspecified; F41.0 Panic disorder [episodic paroxysmal anxiety]; G93.49 Other encephalopathy; J43.9 Emphysema, unspecified; K76.0 Fatty (change of) liver, not elsewhere classified; K59.00 Constipation, unspecified; K57.90 Diverticulosis of intestine, part unspecified, without perforation or abscess without bleeding; Z79.82 Long term (current) use of aspirin; Z79.52 Long term (current) use of systemic steroids; Z20.828 Contact with and (suspected) exposure to other viral communicable diseases; Z86.711 Personal history of pulmonary embolism; Z86.73 Personal history of transient ischemic attack (TIA), and cerebral infarction without residual deficits; Z87.891 Personal history of nicotine dependence; Z79.899 Other long term (current) drug therapy; Z88.2 Allergy status to sulfonamides; Z88.8 Allergy status to other drugs, medicaments and biological substances
CPT/HCPCS: 36415; 36600; 70450; 71045; 74176; 80053; 81001; 82803; 82948; 83880; 84145; 84443; 84484; 85018; 85025; 85610; 87081; 87088; 87635; 93005; 93308; 94640; 94760; 99285; C9803; G0378; J1644; J1940; J7626

== ENCOUNTER 2020-08-19 15:52 | Emergency (ER) | payer MEDICAID ==
[~2020-08-19] VITALS: Ht 167.6 cm; Wt 128.0 kg
[~2020-08-19 15:52] MED LIST changes: -ATOR20TA66 PO; +BUDE10.26 INH; -DIPH1TAB PO; -DOXE75CA3 PO; -ESCI10TA PO; +ESCI20TA45 PO; +GUAI200T5 PO; +LORA-269 PO; -LYR75C PO; +POTA10CA44 PO; +PRED20TA PO; +PREG100C55 PO; -TIOT4MIS5 INH
--- NOTE | 2020-08-19 16:20 | NUR ---
PATIENT APPEARS TO BE HAVING DIFFICULTY INITIATING SPEECH AT TIMES AND FINISHING SENTENCES. PATIENT STATES THAT THIS STARTED 2 WEEKS AGO AND STOPPED AND THEN STARTED 1 WEEK AGO
--- NOTE | 2020-08-19 16:23 | NUR ---
SPOKE TO DR VALERO REGARDING PATIENT'S SPEECH, ORDERS FOR HEAD CT AND ACCUACHECK
--- NOTE | 2020-08-19 16:23 | NUR ---
ALIYAH [phone]
--- NOTE | 2020-08-19 16:31 | NUR ---
TO CT SCAN
[2020-08-19 16:42] LABS: BASOPHILS # (AUTO) 0.1 X10'3 (0-0.2); BASOPHILS % (AUTO) 0.5 % (0-1); EOSINOPHILS # (AUTO) 0.1 X10'3 (0-0.9); EOSINOPHILS % (AUTO) 1.2 % (0-6); HEMATOCRIT 35.4 % (35.0-45.0); HEMOGLOBIN 11.3 g/dl (12.0-16.0); LYMPHOCYTES # (AUTO) 1.3 X10'3 (1.1-4.8); LYMPHOCYTES % (AUTO) 12.1 % (21-51); MEAN CORPUSCULAR HGB CONC 31.8 g/dL (33.0-36.5); MEAN CORPUSCULAR VOLUME 91.4 FL (78-98); MONOCYTES # (AUTO) 0.8 X10'3 (0-0.9); NEUTROPHILS # (AUTO) 8.7 X10'3 (1.8-7.7); NEUTROPHILS % (AUTO) 79.2 % (42-75); PLATELET COUNT 322 X10'3 (140-440); RED BLOOD COUNT 3.88 X10'6 (4.20-5.60); RED CELL DISTRIBUTION WIDTH 17.6 % (11.5-14.5); WHITE BLOOD COUNT 11.1 X10'3 (4.5-11.0)
[2020-08-19 17:01] LABS: ALANINE AMINOTRANSFERASE 34 U/L (12-78); ALBUMIN 2.4 G/DL (3.4-5.0); ALBUMIN/GLOBULIN RATIO 0.6 (1.1-1.5); ALKALINE PHOSPHATASE 86 IU/L (46-116); ANION GAP 5 (8-16); ASPARTATE AMINO TRANSFERASE 11 U/L (10-37); BILIRUBIN,TOTAL 0.6 MG/DL (0.1-1.0); BLOOD UREA NITROGEN 7 MG/DL (7-18); BUN/CREATININE RATIO 12.1 (6.6-38.0); CALCIUM 7.8 MG/DL (8.5-10.1); CHLORIDE 102 MMOL/L (99-107); CREATININE 0.58 MG/DL (0.40-0.90); GLUCOSE 127 MG/DL (70-104); POTASSIUM 3.2 MMOL/L (3.5-5.1); SODIUM 141 MMOL/L (135-145); TOTAL PROTEIN 6.3 G/DL (6.4-8.2); eGFR > 90 ML/MIN
--- NOTE | 2020-08-19 18:10 | NUR ---
YAYO- SON [phone]
[2020-08-19 18:31] LABS: ABG BASE EXCESS 4.7 mmol/L (-2.0-2.0); ABG HCO3 31.3 mmol/L (22.0-26.0); ABG OXYGEN SATURATION 93.1 % (94-97); ABG PCO2 (T) 56.5 mmHg (32.0-45.0); ABG PO2 (T) 71.1 mmHg (75.0-100.0); ALLEN'S TEST POSITIVE; FCOHb 1.1 % (0.0-3.9); FLOW 4 L/min; FMetHb 0.3 % (0.0-1.5); FO2Hb 91.8 % (94-97); PATIENT TEMPERATURE 37.3; TOTAL HEMOGLOBIN 12.6 G/dl (12.0-16.0)
[2020-08-19 18:57] LABS: CLARITY,URINE CLEAR (Clear); COLOR,URINE YELLOW (Yellow); GLUCOSE, URINE NEGATIVE (Neg); KETONES,URINE 40 mg/dl (Neg); LEUKOCYTE ESTERASE ,URINE NEGATIVE (Neg); NITRITES, URINE NEGATIVE (Neg); OCCULT BLOOD,URINE NEGATIVE (Neg); PH,URINE 6.5 (4.8-8.0); PROTEIN,URINE NEGATIVE (Neg)
[2020-08-19 18:58] LABS: UA COLLECTION TYPE STRAIGHT CATH
[2020-08-19 19:13] LABS: TROPONIN I < 0.04 NG/ML (0.0-0.05)
[2020-08-19] MEDS ORDERED: ipratropium/albuterol 3ml nebule NEB ONE (20:30)
[2020-08-19] MEDS ORDERED: calcium carbonate 500mg tablet PO ONE (21:45)
[2020-08-19] MEDS ORDERED: calcium carbonate 500mg tablet PO SCH (21:45)
[2020-08-19 22:22] VITALS: BP 103/61
== END 2020-08-19 22:42 | disposition home or self-care (01) ==
LOC: ER 15:53
DX: R06.02 Shortness of breath (principal); Z20.828 Contact with and (suspected) exposure to other viral communicable diseases; G43.909 Migraine, unspecified, not intractable, without status migrainosus; J43.9 Emphysema, unspecified; J45.909 Unspecified asthma, uncomplicated; K21.9 Gastro-esophageal reflux disease without esophagitis; M19.90 Unspecified osteoarthritis, unspecified site; G89.29 Other chronic pain; F41.9 Anxiety disorder, unspecified; F31.9 Bipolar disorder, unspecified; F17.200 Nicotine dependence, unspecified, uncomplicated; Z86.73 Personal history of transient ischemic attack (TIA), and cerebral infarction without residual deficits; Z87.01 Personal history of pneumonia (recurrent); Z98.890 Other specified postprocedural states; Z88.2 Allergy status to sulfonamides; Z88.1 Allergy status to other antibiotic agents; Z88.8 Allergy status to other drugs, medicaments and biological substances; Z79.82 Long term (current) use of aspirin; Z79.899 Other long term (current) drug therapy
CPT/HCPCS: 36415; 36600; 70450; 71045; 80053; 81003; 82803; 82948; 83880; 84484; 85018; 85025; 87635; 93005; 94640; 99285; C9803; 94760

== ENCOUNTER 2020-09-15 11:10 | Emergency (ER) | payer MEDICAID ==
[~2020-09-15] VITALS: Ht 167.6 cm; Wt 109.1 kg
[~2020-09-15 11:10] MED LIST changes: -ESCI20TA45 PO; +ESCI20TA56 PO; -POTA10CA44 PO
[2020-09-15] MEDS ORDERED: morphine 4 MG/ML inj SYRINge IV ONE (12:00)
[2020-09-15] MEDS ORDERED: ondansetron/PF 4mg/2ml inj IV ONE (12:00)
[2020-09-15 13:02] LABS: BASOPHILS % (AUTO) 0.3 % (0-1); EOSINOPHILS # (AUTO) 0.3 X10'3 (0-0.9); EOSINOPHILS % (AUTO) 3.4 % (0-6); HEMATOCRIT 32.9 % (35.0-45.0); HEMOGLOBIN 10.4 g/dl (12.0-16.0); LYMPHOCYTES # (AUTO) 1.3 X10'3 (1.1-4.8); LYMPHOCYTES % (AUTO) 13.9 % (21-51); MEAN CORPUSCULAR HEMOGLOBIN 28.3 PG (27.0-31.0); MEAN CORPUSCULAR HGB CONC 31.6 g/dL (33.0-36.5); MEAN CORPUSCULAR VOLUME 89.6 FL (78-98); MONOCYTES # (AUTO) 0.6 X10'3 (0-0.9); MONOCYTES % (AUTO) 6.6 % (2-12); NEUTROPHILS # (AUTO) 7.3 X10'3 (1.8-7.7); NEUTROPHILS % (AUTO) 75.8 % (42-75); PLATELET COUNT 371 X10'3 (140-440); RED BLOOD COUNT 3.67 X10'6 (4.20-5.60); RED CELL DISTRIBUTION WIDTH 17.8 % (11.5-14.5); WHITE BLOOD COUNT 9.6 X10'3 (4.5-11.0)
[2020-09-15 13:25] LABS: ALANINE AMINOTRANSFERASE 53 U/L (12-78); ALBUMIN 2.8 G/DL (3.4-5.0); ALBUMIN/GLOBULIN RATIO 0.7 (1.1-1.5); ALKALINE PHOSPHATASE 110 IU/L (46-116); ANION GAP -1 (8-16); ASPARTATE AMINO TRANSFERASE 46 U/L (10-37); BILIRUBIN,TOTAL 0.6 MG/DL (0.1-1.0); BLOOD UREA NITROGEN 7 MG/DL (7-18); BUN/CREATININE RATIO 12.5 (6.6-38.0); C-REACTIVE PROTEIN 1.87 MG/DL (0.0-0.5); CALCIUM 8.3 MG/DL (8.5-10.1); CHLORIDE 99 MMOL/L (99-107); CREATININE 0.56 MG/DL (0.40-0.90); GLUCOSE 133 MG/DL (70-104); POTASSIUM 3.3 MMOL/L (3.5-5.1); SODIUM 139 MMOL/L (135-145); TOTAL PROTEIN 6.8 G/DL (6.4-8.2); eGFR > 90 ML/MIN
[2020-09-15 13:27] LABS: TOTAL CARBON DIOXIDE 40.9 MMOL/L (24-32)
[2020-09-15 14:31] LABS: ABG BASE EXCESS 15.4 mmol/L (-2.0-2.0); ABG OXYGEN SATURATION 42.2 % (94-97); ABG PCO2 (T) 85.8 mmHg (32.0-45.0); ABG PO2 (T) < 28.0 mmHg (75.0-100.0); ALLEN'S TEST POSITIVE; FCOHb 0.5 % (0.0-3.9); FMetHb 0.2 % (0.0-1.5); FO2Hb 41.9 % (94-97); PATIENT TEMPERATURE 36.5; TOTAL HEMOGLOBIN 11.8 G/dl (12.0-16.0)
[2020-09-15] MEDS ORDERED: AMOX-422 PO (15:08)
[2020-09-15] MEDS ORDERED: CEPH500C5 PO (15:10)
[2020-09-15] MEDS ORDERED: cephalexin 250mg capsule PO ONE (15:15)
[2020-09-15] MEDS ORDERED: TETanus/Pertussis (Acell)/Diphther VAC/PF (Tdap-Adult) 0.5ml syringe IMVAC ONE (15:15)
[2020-09-15 15:52] VITALS: BP 117/80
[2020-09-15] MEDS ORDERED: LIDOcaine 1% W/epiNEPHrine 1:200,000 10ml vial IJ ONE (22:50)
== END 2020-09-15 16:21 | disposition home or self-care (01) ==
LOC: ER 11:11
DX: L03.115 Cellulitis of right lower limb (principal); M25.561 Pain in right knee; G89.29 Other chronic pain; G43.909 Migraine, unspecified, not intractable, without status migrainosus; J45.909 Unspecified asthma, uncomplicated; J43.9 Emphysema, unspecified; K21.9 Gastro-esophageal reflux disease without esophagitis; M19.90 Unspecified osteoarthritis, unspecified site; F41.9 Anxiety disorder, unspecified; F31.9 Bipolar disorder, unspecified; Z20.3 Contact with and (suspected) exposure to rabies; Z86.73 Personal history of transient ischemic attack (TIA), and cerebral infarction without residual deficits; Z98.890 Other specified postprocedural states; Z87.01 Personal history of pneumonia (recurrent); Z88.2 Allergy status to sulfonamides; Z88.1 Allergy status to other antibiotic agents; Z88.8 Allergy status to other drugs, medicaments and biological substances; Z79.82 Long term (current) use of aspirin; Z79.2 Long term (current) use of antibiotics; Z79.899 Other long term (current) drug therapy
CPT/HCPCS: 36415; 36600; 73564; 80053; 82803; 83605; 83880; 84145; 85018; 85025; 85651; 86140; 87040; 90471; 90715; 96374; 96375; 99284; J2270; J2405

== ENCOUNTER 2021-03-10 18:09 | Emergency (ER) | payer MEDICAID ==
[~2021-03-10] VITALS: Ht 170.2 cm; Wt 111.4 kg
[~2021-03-10 18:09] MED LIST changes: +CEPH-585 PO; +ESCI20TA39 PO; -ESCI20TA56 PO
--- NOTE | 2021-03-10 18:39 | NUR ---
YAYO SESAY [phone] CELL, WORK NUMBER [phone]
[2021-03-10] MEDS ORDERED: DICY10CA88 PO (19:17)
[2021-03-10] MEDS ORDERED: LOPE-144 PO (19:17)
[2021-03-10] MEDS ORDERED: loperamide 2mg capsule PO ONE (19:20)
[2021-03-10] MEDS ORDERED: dicyclomine 10 MG capsule PO ONE (19:20)
[2021-03-10 19:29] LABS: BASOPHILS % (AUTO) 0.4 % (0-1); EOSINOPHILS # (AUTO) 0.3 X10'3 (0-0.9); EOSINOPHILS % (AUTO) 2.9 % (0-6); HEMATOCRIT 38.6 % (35.0-45.0); HEMOGLOBIN 12.2 g/dl (12.0-16.0); LYMPHOCYTES # (AUTO) 1.4 X10'3 (1.1-4.8); MEAN CORPUSCULAR HEMOGLOBIN 23.9 PG (27.0-31.0); MEAN CORPUSCULAR HGB CONC 31.5 g/dL (33.0-36.5); MEAN PLATELET VOLUME 7.1 FL (7.4-10.4); MONOCYTES # (AUTO) 0.7 X10'3 (0-0.9); MONOCYTES % (AUTO) 6.8 % (2-12); NEUTROPHILS % (AUTO) 76.9 % (42-75); PLATELET COUNT 449 X10'3 (140-440); RED BLOOD COUNT 5.08 X10'6 (4.20-5.60); RED CELL DISTRIBUTION WIDTH 20.1 % (11.5-14.5); WHITE BLOOD COUNT 10.4 X10'3 (4.5-11.0)
[2021-03-10 19:41] LABS: ALANINE AMINOTRANSFERASE 40 U/L (12-78); ALBUMIN 3.7 G/DL (3.4-5.0); ALBUMIN/GLOBULIN RATIO 0.8 (1.1-1.5); ALKALINE PHOSPHATASE 143 IU/L (46-116); ANION GAP 6 (8-16); ASPARTATE AMINO TRANSFERASE 22 U/L (10-37); BILIRUBIN,TOTAL 0.5 MG/DL (0.1-1.0); BLOOD UREA NITROGEN 11 MG/DL (7-18); BUN/CREATININE RATIO 17.5 (6.6-38.0); CALCIUM 8.6 MG/DL (8.5-10.1); CHLORIDE 103 MMOL/L (99-107); CREATININE 0.63 MG/DL (0.40-0.90); GLUCOSE 109 MG/DL (70-104); LIPASE 54 U/L (73-393); POTASSIUM 3.8 MMOL/L (3.5-5.1); SODIUM 141 MMOL/L (135-145); TOTAL CARBON DIOXIDE 31.9 MMOL/L (24-32); TOTAL PROTEIN 8.4 G/DL (6.4-8.2); eGFR > 90 ML/MIN
[2021-03-10 19:44] VITALS: BP 168/90
[2021-03-10 19:48] LABS: ANISOCYTOSIS 3+; HYPOCHROMASIA 1+; MICROCYTOSIS 1+; PLATELET ESTIMATE INCREASED
== END 2021-03-10 19:46 | disposition home or self-care (01) ==
LOC: ER 18:09
DX: R19.7 Diarrhea, unspecified (principal); R10.30 Lower abdominal pain, unspecified; G43.909 Migraine, unspecified, not intractable, without status migrainosus; J43.9 Emphysema, unspecified; K21.9 Gastro-esophageal reflux disease without esophagitis; M19.90 Unspecified osteoarthritis, unspecified site; G89.29 Other chronic pain; F41.9 Anxiety disorder, unspecified; F31.9 Bipolar disorder, unspecified; Z86.73 Personal history of transient ischemic attack (TIA), and cerebral infarction without residual deficits; Z87.01 Personal history of pneumonia (recurrent); Z88.2 Allergy status to sulfonamides; Z88.8 Allergy status to other drugs, medicaments and biological substances; Z88.1 Allergy status to other antibiotic agents; Z79.82 Long term (current) use of aspirin; Z79.2 Long term (current) use of antibiotics; Z79.899 Other long term (current) drug therapy
CPT/HCPCS: 36415; 80053; 83690; 85008; 85025; 99283

== ENCOUNTER 2021-03-23 22:24 | Inpatient (IN) | payer MEDICAID ==
[~2021-03-23] VITALS: Ht 170.2 cm; Wt 100.0 kg
[~2021-03-23 22:24] MED LIST changes: +DICY10CA88 PO; +LOPE-144 PO
[2021-03-23 22:56] LABS: BASOPHILS % (AUTO) 0.4 % (0-1); EOSINOPHILS # (AUTO) 0.7 X10'3 (0-0.9); EOSINOPHILS % (AUTO) 7.3 % (0-6); HEMATOCRIT 35.4 % (35.0-45.0); HEMOGLOBIN 11.1 g/dl (12.0-16.0); LYMPHOCYTES % (AUTO) 20.8 % (21-51); MEAN CORPUSCULAR HEMOGLOBIN 24.2 PG (27.0-31.0); MEAN CORPUSCULAR HGB CONC 31.4 g/dL (33.0-36.5); MEAN CORPUSCULAR VOLUME 76.9 FL (78-98); MEAN PLATELET VOLUME 7.4 FL (7.4-10.4); MONOCYTES # (AUTO) 0.5 X10'3 (0-0.9); MONOCYTES % (AUTO) 5.2 % (2-12); NEUTROPHILS # (AUTO) 6.4 X10'3 (1.8-7.7); NEUTROPHILS % (AUTO) 66.3 % (42-75); PLATELET COUNT 320 X10'3 (140-440); RED CELL DISTRIBUTION WIDTH 21.5 % (11.5-14.5); WHITE BLOOD COUNT 9.6 X10'3 (4.5-11.0)
[2021-03-23 23:09] LABS: ALANINE AMINOTRANSFERASE 60 U/L (12-78); ALBUMIN 3.1 G/DL (3.4-5.0); ALBUMIN/GLOBULIN RATIO 0.8 (1.1-1.5); ALKALINE PHOSPHATASE 129 IU/L (46-116); ANION GAP 4 (8-16); ASPARTATE AMINO TRANSFERASE 40 U/L (10-37); BILIRUBIN,TOTAL 0.2 MG/DL (0.1-1.0); BLOOD UREA NITROGEN 7 MG/DL (7-18); BUN/CREATININE RATIO 10.4 (6.6-38.0); CALCIUM 8.2 MG/DL (8.5-10.1); CHLORIDE 102 MMOL/L (99-107); CREATININE 0.67 MG/DL (0.40-0.90); GLUCOSE 160 MG/DL (70-104); POTASSIUM 3.8 MMOL/L (3.5-5.1); SODIUM 141 MMOL/L (135-145); TOTAL CARBON DIOXIDE 34.9 MMOL/L (24-32); TOTAL PROTEIN 7.1 G/DL (6.4-8.2); eGFR 90 ML/MIN
[2021-03-23] MEDS ORDERED: nitroGLYCERIN 0.4mg SUBLingual tab SL PRN ×2 (23:40→23:50)
[2021-03-23 23:46] LABS: ANISOCYTOSIS 3+; MICROCYTOSIS 1+; PLATELET ESTIMATE NORMAL
[2021-03-23] MEDS ORDERED: ondansetron/PF 4mg/2ml inj IV PRN (23:50)
[2021-03-23] MEDS ORDERED: magnesium 4gm in 100ml NS 100 ML IV PRN (23:50)
[2021-03-23] MEDS ORDERED: potassium Cl 20 mEq SR tablet PO PRN ×2 (23:50)
[2021-03-23] MEDS ORDERED: HYDROcodone/acetaminophen 10/325mg tab PO PRN (23:50)
[2021-03-23] MEDS ORDERED: magnesium 2GM in 50ml NS 50 ML IV PRN (23:50)
[2021-03-23] MEDS ORDERED: metoprolol tartrate 1mg/ml inj IV PRN (23:50)
[2021-03-23] MEDS ORDERED: magnesium Cl slow-release 64mg tablet PO PRN (23:50)
[2021-03-23] MEDS ORDERED: potassium Cl 40MEQ/1/2NS 520ml 520 ML IV PRN ×2 (23:50)
[2021-03-23] MEDS ORDERED: HYDROcodone/acetaminophen 5mg/325mg tablet PO PRN (23:50)
[2021-03-23] MEDS ORDERED: acetaminophen 325mg tablet PO PRN ×2 (23:50)
[2021-03-23] MEDS ORDERED: PERFLUTREN PROTEIN-A MICROSPHR (Optison) 0.22 MG/ML 3ML VIAL IV ONE (23:50)
[2021-03-23] MEDS ORDERED: mag hydrox/Alum hydrox/simeth 30ml oral suspension PO PRN (23:50)
[2021-03-23] MEDS ORDERED: aminophylline 250mg/10ml inj. IV PRN (23:50)
[2021-03-23] MEDS ORDERED: morphine 2 MG/ML inj. syringe IV PRN (23:50)
[2021-03-23] MEDS ORDERED: regadenoson 0.4mg/5ml syringe IV ONE (23:50)
[2021-03-23] MEDS ORDERED: magnesium hydroxide 30ml (MOM) UD suspension PO PRN (23:50)
[2021-03-24] VITALS (9 sets, daily range): BP systolic 92–122; BP diastolic 46–66
[2021-03-24] MEDS ORDERED: regadenoson 0.4mg/5ml syringe IV PRN (00:05)
[2021-03-24] MEDS ORDERED: QUET25TA PO (01:08)
[2021-03-24 02:25] LABS: BASOPHILS % (AUTO) 0.3 % (0-1); EOSINOPHILS # (AUTO) 0.7 X10'3 (0-0.9); HEMATOCRIT 35.5 % (35.0-45.0); HEMOGLOBIN 11.2 g/dl (12.0-16.0); LYMPHOCYTES # (AUTO) 1.6 X10'3 (1.1-4.8); LYMPHOCYTES % (AUTO) 18.4 % (21-51); MEAN CORPUSCULAR HEMOGLOBIN 24.2 PG (27.0-31.0); MEAN CORPUSCULAR HGB CONC 31.5 g/dL (33.0-36.5); MEAN CORPUSCULAR VOLUME 76.9 FL (78-98); MEAN PLATELET VOLUME 7.5 FL (7.4-10.4); MONOCYTES # (AUTO) 0.5 X10'3 (0-0.9); NEUTROPHILS # (AUTO) 5.7 X10'3 (1.8-7.7); NEUTROPHILS % (AUTO) 67.3 % (42-75); PLATELET COUNT 313 X10'3 (140-440); RED BLOOD COUNT 4.62 X10'6 (4.20-5.60); RED CELL DISTRIBUTION WIDTH 21.8 % (11.5-14.5); WHITE BLOOD COUNT 8.4 X10'3 (4.5-11.0)
[2021-03-24 02:59] LABS: PLATELET ESTIMATE NORMAL
[2021-03-24 03:00] LABS: ANISOCYTOSIS 3+; MICROCYTOSIS 1+
[2021-03-24] MEDS ORDERED: ipratropium/albuterol 3ml nebule NEB SCH (03:00)
[2021-03-24] MEDS ORDERED: hydrOXYzine 10 MG tablet PO PRN (03:30)
--- NOTE | 2021-03-24 04:30 | NUR ---
Patient stable for discharge per md orders. Strict follow up and return precautions given. IV taken out with cannula intact. Patient belongings gathered and given to son at bedside. patient placed into wheelchair and taken down to lobby assisted by MORGAN. Patient seen leaving premises with son in private vehicle. Addendum: 03/24/21 at 1732 by Sherine Pearl RN disregard time. 1630.
[2021-03-24 05:50] LABS: ALANINE AMINOTRANSFERASE 58 U/L (12-78); ALBUMIN/GLOBULIN RATIO 0.7 (1.1-1.5); ALKALINE PHOSPHATASE 127 IU/L (46-116); ANION GAP 5 (8-16); ASPARTATE AMINO TRANSFERASE 33 U/L (10-37); BILIRUBIN,TOTAL 0.3 MG/DL (0.1-1.0); BLOOD UREA NITROGEN 7 MG/DL (7-18); BUN/CREATININE RATIO 12.3 (6.6-38.0); CALCIUM 8.1 MG/DL (8.5-10.1); CHLORIDE 104 MMOL/L (99-107); CREATININE 0.57 MG/DL (0.40-0.90); GLUCOSE 125 MG/DL (70-104); POTASSIUM 4.2 MMOL/L (3.5-5.1); SODIUM 145 MMOL/L (135-145); TOTAL PROTEIN 7.1 G/DL (6.4-8.2); eGFR > 90 ML/MIN
[2021-03-24 05:52] LABS: CHOL/HDL RATIO 3.1 (0.00-4.99); CHOLESTEROL 151 MG/DL (0-200); HDL CHOLESTEROL 48 MG/DL (35-60); LDL CHOLESTEROL 85 MG/DL (50-100); MAGNESIUM 2.3 MG/DL (1.5-2.4); TRIGLYCERIDES 108 MG/DL (20-135)
[2021-03-24] MEDS ORDERED: triamcinolone acetonide 0.5% cream 15gm TP SCH (08:00)
[2021-03-24] MEDS ORDERED: docusate sod 100mg capsule PO SCH (08:00)
[2021-03-24] MEDS ORDERED: K and/or MAG REPLACEMENT MC SCH (08:00)
[2021-03-24] MEDS ORDERED: enoxaparin 40mg/0.4ml syringe SUBCUT SCH (08:00)
--- NOTE | 2021-03-24 08:00 | NUR ---
Patient brought up from emergency department by RN. Patient has been injected by nuclear medicine contrast. Awaiting [email or web address] to take patient to [facility].
--- NOTE | 2021-03-24 16:30 | NUR ---
Patient stable for discharge per md orders. Strict follow up and return precautions given. IV taken out with cannula intact. Patient belongings gathered and given to son at bedside. patient placed into wheelchair and taken down to lobby assisted by KEY CARRIER. Patient seen leaving premises with son in private vehicle.
== END 2021-03-24 16:32 | disposition home or self-care (01) | DRG 756 ==
LOC: ER 22:25 → ED HOLD 23:47 → PCU 3S 03-24 07:45
PROVIDERS: ADMIT Internal Medicine; ATTEND Family Medicine
PROC: 4A02XM4 Measurement of Cardiac Total Activity, External Approach (ICD-10-PCS; principal; 2021-03-24)
PROC: 3E073KZ Introduction of Other Diagnostic Substance into Coronary Artery, Percutaneous Approach (ICD-10-PCS; 2021-03-24)
DX: F41.0 Panic disorder [episodic paroxysmal anxiety] (principal); J96.10 Chronic respiratory failure, unspecified whether with hypoxia or hypercapnia; I50.9 Heart failure, unspecified; E66.01 Morbid (severe) obesity due to excess calories; F32.9 Major depressive disorder, single episode, unspecified; G43.909 Migraine, unspecified, not intractable, without status migrainosus; G89.29 Other chronic pain; K21.9 Gastro-esophageal reflux disease without esophagitis; M19.90 Unspecified osteoarthritis, unspecified site; M54.9 Dorsalgia, unspecified; J43.9 Emphysema, unspecified; L30.9 Dermatitis, unspecified; Z86.73 Personal history of transient ischemic attack (TIA), and cerebral infarction without residual deficits; Z87.891 Personal history of nicotine dependence; Z88.2 Allergy status to sulfonamides; Z88.8 Allergy status to other drugs, medicaments and biological substances; Z79.899 Other long term (current) drug therapy; Z79.82 Long term (current) use of aspirin; Z68.34 Body mass index [BMI] 34.0-34.9, adult
CPT/HCPCS: 36415; 71045; 78452; 80053; 80061; 83036; 83735; 83880; 84484; 85008; 85025; 87081; 93005; 93017; 93306; 99285; A9500; G0378; J1650; J2785

== ENCOUNTER 2021-11-29 12:25 | Emergency (ER) | payer MEDICAID ==
[~2021-11-29] VITALS: Ht 170.2 cm; Wt 113.6 kg
[~2021-11-29 12:25] MED LIST changes: -BUDE10.26 INH; -BUPR1TAB58 PO; -CEPH-585 PO; -DICY10CA88 PO; -GUAI200T5 PO; -LORA10TA7 PO; +QUET25TA PO; -ZOLP10TA5 PO
[2021-11-29 12:48] VITALS: BP 120/73
[2021-11-29] MEDS ORDERED: orphenadrine citrate 60mg/2ml inj. IM ONE (14:20)
[2021-11-29] MEDS ORDERED: HYDROcodone/acetaminophen 5mg/325mg tablet PO ONE (14:20)
[2021-11-29] MEDS ORDERED: ketorolac trometh. 30mg/ml inj. IM ONE (14:20)
[2021-11-29] MEDS ORDERED: ondansetron 4mg rapidly disintigrating tab PO ONE (14:20)
[2021-11-29] MEDS ORDERED: acetaminophen 325mg tablet PO ONE (14:20)
[2021-11-29] MEDS ORDERED: HYDR-3965 PO (14:23)
[2021-11-29] MEDS ORDERED: CYCL-1 PO (14:23)
== END 2021-11-29 15:13 | disposition home or self-care (01) ==
LOC: ER 12:25
DX: M25.512 Pain in left shoulder (principal); M54.2 Cervicalgia; I11.9 Hypertensive heart disease without heart failure; G43.909 Migraine, unspecified, not intractable, without status migrainosus; K21.9 Gastro-esophageal reflux disease without esophagitis; F31.9 Bipolar disorder, unspecified; J43.9 Emphysema, unspecified; Z88.2 Allergy status to sulfonamides; Z88.8 Allergy status to other drugs, medicaments and biological substances; Z79.899 Other long term (current) drug therapy; Z88.1 Allergy status to other antibiotic agents; X58.XXXA Exposure to other specified factors, initial encounter; Y93.89 Activity, other specified; Y92.89 Other specified places as the place of occurrence of the external cause; Y99.8 Other external cause status
CPT/HCPCS: 96372; 99284; J1885; J2360

== ENCOUNTER 2022-04-29 11:30 | Emergency (ER) | payer MEDICAID ==
[~2022-04-29] VITALS: Ht 165.1 cm; Wt 113.6 kg
[~2022-04-29 11:30] MED LIST changes: +CYCL-1 PO
[2022-04-29 14:29] VITALS: BP 130/87
== END 2022-04-29 14:34 | disposition home or self-care (01) ==
LOC: ER 11:30
DX: S80.01XA Contusion of right knee, initial encounter (principal); M25.561 Pain in right knee; G43.909 Migraine, unspecified, not intractable, without status migrainosus; J43.9 Emphysema, unspecified; K21.9 Gastro-esophageal reflux disease without esophagitis; M19.90 Unspecified osteoarthritis, unspecified site; G89.29 Other chronic pain; F41.9 Anxiety disorder, unspecified; F31.9 Bipolar disorder, unspecified; Z86.73 Personal history of transient ischemic attack (TIA), and cerebral infarction without residual deficits; Z87.01 Personal history of pneumonia (recurrent); Z98.890 Other specified postprocedural states; Z72.89 Other problems related to lifestyle; Z88.2 Allergy status to sulfonamides; Z88.1 Allergy status to other antibiotic agents; Z88.8 Allergy status to other drugs, medicaments and biological substances; Z79.82 Long term (current) use of aspirin; Z79.899 Other long term (current) drug therapy; W19.XXXA Unspecified fall, initial encounter; Y93.89 Activity, other specified; Y92.89 Other specified places as the place of occurrence of the external cause; Y99.8 Other external cause status
CPT/HCPCS: 73564; 99284

== ENCOUNTER 2022-05-09 04:54 | Inpatient (IN) | payer MEDICAID ==
[~2022-05-09] VITALS: Ht 170.2 cm; Wt 98.0 kg
[2022-05-09 06:31] LABS: BASOPHILS % (AUTO) 0.1 % (0-1); EOSINOPHILS # (AUTO) 0.4 X10'3 (0-0.9); EOSINOPHILS % (AUTO) 4.4 % (0-6); HEMATOCRIT 34.6 % (35.0-45.0); HEMOGLOBIN 11.1 g/dl (12.0-16.0); LYMPHOCYTES # (AUTO) 0.7 X10'3 (1.1-4.8); MEAN CORPUSCULAR HEMOGLOBIN 26.9 PG (27.0-31.0); MEAN CORPUSCULAR VOLUME 83.9 FL (78-98); MEAN PLATELET VOLUME 7.1 FL (7.4-10.4); MONOCYTES # (AUTO) 0.7 X10'3 (0-0.9); MONOCYTES % (AUTO) 7.6 % (2-12); NEUTROPHILS % (AUTO) 79.9 % (42-75); PLATELET COUNT 306 X10'3 (140-440); RED BLOOD COUNT 4.12 X10'6 (4.20-5.60); RED CELL DISTRIBUTION WIDTH 17.4 % (11.5-14.5); WHITE BLOOD COUNT 8.7 X10'3 (4.5-11.0)
[2022-05-09 06:42] LABS: ALANINE AMINOTRANSFERASE 20 U/L (12-78); ALBUMIN 3.1 G/DL (3.4-5.0); ALBUMIN/GLOBULIN RATIO 0.8 (1.1-1.5); ALKALINE PHOSPHATASE 65 IU/L (46-116); ANION GAP -2 (8-16); ASPARTATE AMINO TRANSFERASE 19 U/L (10-37); BILIRUBIN,TOTAL 0.3 MG/DL (0.1-1.0); BLOOD UREA NITROGEN 6 MG/DL (7-18); BUN/CREATININE RATIO 12.5 (6.6-38.0); CALCIUM 8.5 MG/DL (8.5-10.1); CHLORIDE 103 MMOL/L (99-107); CREATININE 0.48 MG/DL (0.40-0.90); GLUCOSE 133 MG/DL (70-104); SODIUM 144 MMOL/L (135-145); eGFR > 90 ML/MIN
--- NOTE | 2022-05-09 06:43 | NUR ---
PT HAD A LARGE BM. PT HAS BEEN CLEANED.
[2022-05-09 07:02] LABS: CLARITY,URINE CLEAR (Clear); COLOR,URINE YELLOW (Yellow); GLUCOSE, URINE NEGATIVE (Neg); KETONES,URINE NEGATIVE (Neg); LEUKOCYTE ESTERASE ,URINE NEGATIVE (Neg); NITRITES, URINE NEGATIVE (Neg); OCCULT BLOOD,URINE NEGATIVE (Neg); PH,URINE 6.5 (4.8-8.0); PROTEIN,URINE NEGATIVE (Neg); UA COLLECTION TYPE STRAIGHT CATH; UROBILINOGEN,URINE 0.2 E.U/dL (0.2-1.0)
--- NOTE | 2022-05-09 08:02 | NUR ---
Attempted to test patients gate. Patient stated that it was too painful for her to walk.
[2022-05-09 09:12] LABS: OXYGEN SATURATION (MIXED VEN) 52.5 % (60-80); PO2 MIXED VENOUS (TEMP COR) 31.9 mmHg (35-46)
[2022-05-09] MEDS ORDERED: ipratropium 0.5 MG/2.5ML nebule IH ONE (10:10)
[2022-05-09] MEDS ORDERED: albuterol 2.5 MG/3 ML nebule CONTNEB PRN ×2 (10:10→14:10)
[2022-05-09] MEDS ORDERED: methylPREDNISolone sod succ 125mg/2ml vial IV ONE (10:10)
[2022-05-09] MEDS ORDERED: albuterol 2.5 MG/3 ML nebule ONE (10:56)
[2022-05-09 13:35] LABS: ABG HCO3 42.3 mmol/L (22.0-26.0); ABG PCO2 (T) 91.3 mmHg (32.0-45.0); ABG PO2 (T) 67.1 mmHg (75.0-100.0); ALLEN'S TEST POSITIVE; FCOHb 1.1 % (0.0-3.9); FMetHb 0.3 % (0.0-1.5); FO2Hb 89.7 % (94-97); TOTAL HEMOGLOBIN 12.6 G/dl (12.0-16.0)
[2022-05-09] MEDS ORDERED: mag hydrox/Alum hydrox/simeth 30ml oral suspension PO PRN (15:30)
[2022-05-09] MEDS ORDERED: ondansetron/PF 4mg/2ml inj IV PRN (15:30)
[2022-05-09] MEDS ORDERED: POTASSIUM BICARB 20meq eff tab 20 MEQ TABLET.EFF PO PRN (15:30)
[2022-05-09] MEDS ORDERED: magnesium 4gm in 100ml NS 100 ML IV PRN (15:30)
[2022-05-09] MEDS ORDERED: albuterol 2.5 MG/3 ML nebule NEB PRN (15:30)
[2022-05-09] MEDS ORDERED: magnesium hydroxide 30ml (MOM) UD suspension PO PRN (15:30)
[2022-05-09] MEDS ORDERED: ipratropium/albuterol 3ml nebule NEB PRN (15:30)
[2022-05-09] MEDS ORDERED: potassium CL 10mEq/100ml bag 100 ML IV PRN (15:30)
[2022-05-09] MEDS ORDERED: HYDROcodone/acetaminophen 5mg/325mg tablet PO PRN (15:30)
[2022-05-09] MEDS ORDERED: acetaminophen 325mg tablet PO PRN ×2 (15:30)
[2022-05-09] MEDS ORDERED: magnesium 2GM in 50ml NS 50 ML IV PRN (15:30)
[2022-05-09] MEDS ORDERED: dextrose 50%-water 50ml dispensing syringe IV PRN ×2 (15:50)
[2022-05-09] MEDS ORDERED: glucagon, human recombinant 1mg kit SUBCUT PRN (15:50)
[2022-05-09] MEDS ORDERED: DEXTROSE 15 GM of carb/4 tabs (each vial/BOTTLE has 4 tablets) PO PRN ×2 (15:50)
[2022-05-09] MEDS ORDERED: MESSAGE TO PHARMACY PO ONE (15:50)
[2022-05-09 16:31] LABS: HEMOGLOBIN A1C 6.6 % (4.5-6.2)
[2022-05-09] MEDS: methylPREDNISolone sod succ 125mg/2ml vial IV SCH (16:49)
[2022-05-09] MEDS: docusate sod 100mg capsule PO SCH (19:57)
[2022-05-09] MEDS: enoxaparin 40mg/0.4ml syringe SQ SCH (19:57)
[2022-05-09] MEDS: K and/or MAG REPLACEMENT MC SCH (20:00)
[2022-05-09 20:45] VITALS: BP 118/53
[2022-05-09] MEDS: insulin glargine (Lantus) pen - multi-dose SQ SCH (21:00)
[2022-05-09 23:00] VITALS: BP 129/66
[2022-05-10] MEDS: methylPREDNISolone sod succ 125mg/2ml vial IV SCH ×3 (00:06→17:05)
[2022-05-10 02:00] VITALS: BP 122/59
[2022-05-10 06:00] VITALS: BP 118/75
--- NOTE | 2022-05-10 06:11 | NUR ---
Problems reprioritized. Patient report given, questions answered & plan of care reviewed with ARPAN Schaefer.
[2022-05-10] MEDS: docusate sod 100mg capsule PO SCH ×2 (07:25→19:50)
[2022-05-10] MEDS: K and/or MAG REPLACEMENT MC SCH ×2 (08:00→19:48)
[2022-05-10 08:05] LABS: BASOPHILS % (AUTO) 0.1 % (0-1); EOSINOPHILS % (AUTO) 0 % (0-6); HEMATOCRIT 33.6 % (35.0-45.0); LYMPHOCYTES # (AUTO) 0.7 X10'3 (1.1-4.8); LYMPHOCYTES % (AUTO) 7.8 % (21-51); MEAN CORPUSCULAR HEMOGLOBIN 26.5 PG (27.0-31.0); MEAN CORPUSCULAR HGB CONC 32.7 g/dL (33.0-36.5); MEAN CORPUSCULAR VOLUME 81.2 FL (78-98); MEAN PLATELET VOLUME 7.4 FL (7.4-10.4); MONOCYTES # (AUTO) 0.2 X10'3 (0-0.9); MONOCYTES % (AUTO) 2.8 % (2-12); NEUTROPHILS % (AUTO) 89.3 % (42-75); PLATELET COUNT 349 X10'3 (140-440); RED BLOOD COUNT 4.14 X10'6 (4.20-5.60); RED CELL DISTRIBUTION WIDTH 17.2 % (11.5-14.5); WHITE BLOOD COUNT 8.9 X10'3 (4.5-11.0)
[2022-05-10 08:33] LABS: ALANINE AMINOTRANSFERASE 21 U/L (12-78); ALBUMIN 2.9 G/DL (3.4-5.0); ALBUMIN/GLOBULIN RATIO 0.7 (1.1-1.5); ALKALINE PHOSPHATASE 63 IU/L (46-116); ANION GAP 2 (8-16); ASPARTATE AMINO TRANSFERASE 13 U/L (10-37); BILIRUBIN,TOTAL 0.4 MG/DL (0.1-1.0); BLOOD UREA NITROGEN 10 MG/DL (7-18); CALCIUM 8.7 MG/DL (8.5-10.1); CHLORIDE 101 MMOL/L (99-107); GLUCOSE 149 MG/DL (70-104); MAGNESIUM 2.4 MG/DL (1.5-2.4); POTASSIUM 3.8 MMOL/L (3.5-5.1); SODIUM 140 MMOL/L (135-145); TOTAL CARBON DIOXIDE 36.8 MMOL/L (24-32); eGFR > 90 ML/MIN
[2022-05-10 09:41] LABS: ABG BASE EXCESS 11.3 mmol/L (-2.0-2.0); ABG HCO3 37.7 mmol/L (22.0-26.0); ABG OXYGEN SATURATION 95.8 % (94-97); ABG PCO2 (T) 58.7 mmHg (32.0-45.0); ABG PO2 (T) 79.3 mmHg (75.0-100.0); ALLEN'S TEST POSITIVE; FCOHb 0.1 % (0.0-3.9); FLOW 4 L/min; FMetHb 0.2 % (0.0-1.5); FO2Hb 95.5 % (94-97)
[2022-05-10 11:00] VITALS: BP 123/83
[2022-05-10] MEDS: nystatin 15 GM powder TP SCH ×2 (13:01→21:00)
[2022-05-10] MEDS: HYDROcodone/acetaminophen 10/325mg tab PO PRN ×2 (13:01→17:05)
[2022-05-10] MEDS ORDERED: METF-438 PO (14:44)
[2022-05-10] MEDS ORDERED: LIOT25TA12 PO (14:44)
[2022-05-10] MEDS ORDERED: POTA-206 PO (14:44)
[2022-05-10] MEDS ORDERED: FURO20TA4 PO (14:44)
[2022-05-10] MEDS ORDERED: LORA10TA7 PO (14:44)
[2022-05-10] MEDS ORDERED: LORA-269 PO ×2 (14:44→14:45)
[2022-05-10] MEDS ORDERED: FLUT1BLS16 PO (14:44)
[2022-05-10] MEDS ORDERED: ALBU17AE26 PO (14:44)
[2022-05-10] MEDS ORDERED: QUET50TA24 PO (14:44)
[2022-05-10] MEDS ORDERED: ATOR40TA72 PO (14:44)
[2022-05-10] MEDS ORDERED: QUEtiapine 25mg tablet PO PRN (14:55)
[2022-05-10] MEDS ORDERED: LORazepam 1 MG tablet PO PRN ×2 (14:55)
[2022-05-10] MEDS ORDERED: nitroGLYCERIN 0.4mg SUBLingual tab SL PRN (14:55)
[2022-05-10 15:00] VITALS: BP_SYST 104; BP_SYST 113; BP_DIAS 32; BP_DIAS 65
--- NOTE | 2022-05-10 15:12 | NUR ---
Malnutrition Consult: Pt admit DX metabolic encephalopathy secondary to hypercapnea s/p fall after taking sleeping medicine, T2DM A1C 6.6% appropriate, COPD exacerbation, and chronic heart failure per EMR. Pt w/ mild weakness, trace BLE edema, PO 0% first heart healthy meal this AM pending further PO trends this admit. Pt current bed scaled wt 98kg w/ no prior scaled wt hx in EMR. Pt currently lacks minimum malnutrition criteria at this time. Will monitor for further malnutrition criteria and nutrition intervention needs this admit. Addendum: 05/10/22 at [address] Amended: Links added.
[2022-05-10 18:00] VITALS: BP 128/60
--- NOTE | 2022-05-10 18:10 | NUR ---
Patient in room PCU 3014. I have received report from Soco RN and had the opportunity to ask questions and assume patient care.
--- NOTE | 2022-05-10 18:47 | NUR ---
Problems reprioritized. Patient report given, questions answered & plan of care reviewed with ARPAN Coles. Pt off bipap, abg improved, pt weaned to 2L NC, sats >92 at all times. Pt AOx2-3 throughout the day however becoming more confused this afternoon, will endorse to shift leader RN. Pt to be placed on bipap tonight. Spoke to avery Woodson, provided update, answered all questions. Pt in no acute distress at this time.
[2022-05-10] MEDS: metFORMIN 500mg tablet PO SCH (19:50)
[2022-05-10] MEDS: enoxaparin 40mg/0.4ml syringe SQ SCH (19:51)
[2022-05-10 22:00] VITALS: BP 114/57
[2022-05-10] MEDS: pregabalin 25mg capsule PO SCH (23:43)
[2022-05-10] MEDS: insulin glargine (Lantus) pen - multi-dose SQ SCH (23:49)
[2022-05-11 06:00] VITALS: BP 115/52
--- NOTE | 2022-05-11 06:15 | NUR ---
Problems reprioritized. Patient report given, questions answered & plan of care reviewed with Nhi ANTONY.
[2022-05-11 07:44] LABS: BASOPHILS % (AUTO) 0.2 % (0-1); EOSINOPHILS % (AUTO) 0 % (0-6); HEMATOCRIT 34.3 % (35.0-45.0); LYMPHOCYTES # (AUTO) 1.4 X10'3 (1.1-4.8); LYMPHOCYTES % (AUTO) 12.1 % (21-51); MEAN CORPUSCULAR HEMOGLOBIN 26.4 PG (27.0-31.0); MEAN CORPUSCULAR VOLUME 82.6 FL (78-98); MEAN PLATELET VOLUME 7.4 FL (7.4-10.4); MONOCYTES % (AUTO) 8.8 % (2-12); NEUTROPHILS # (AUTO) 8.8 X10'3 (1.8-7.7); NEUTROPHILS % (AUTO) 78.9 % (42-75); PLATELET COUNT 403 X10'3 (140-440); RED BLOOD COUNT 4.16 X10'6 (4.20-5.60); RED CELL DISTRIBUTION WIDTH 17.4 % (11.5-14.5); WHITE BLOOD COUNT 11.1 X10'3 (4.5-11.0)
[2022-05-11] MEDS: loratadine 10mg tablet PO SCH (08:00)
[2022-05-11] MEDS: K and/or MAG REPLACEMENT MC SCH ×2 (08:00→19:03)
[2022-05-11] MEDS: TYPE IN GENERIC & BRAND NAME OF PATIENT MED STRENGTH & FORM PO SCH (08:00)
[2022-05-11] MEDS: HYDROcodone/acetaminophen 10/325mg tab PO PRN ×4 (08:03→21:16)
[2022-05-11] MEDS: docusate sod 100mg capsule PO SCH ×2 (08:04→21:15)
[2022-05-11] MEDS: metFORMIN 500mg tablet PO SCH ×2 (08:04→21:14)
[2022-05-11] MEDS: pregabalin 25mg capsule PO SCH ×3 (08:05→21:16)
[2022-05-11] MEDS: ESCITALOPRAM OXALATE 5 MG TABLET PO SCH (08:05)
[2022-05-11] MEDS: nystatin 15 GM powder TP SCH ×3 (08:05→22:05)
[2022-05-11] MEDS: methylPREDNISolone sod succ 125mg/2ml vial IV SCH ×3 (08:05→16:22)
[2022-05-11 08:11] LABS: ALANINE AMINOTRANSFERASE 20 U/L (12-78); ALBUMIN 2.8 G/DL (3.4-5.0); ALBUMIN/GLOBULIN RATIO 0.7 (1.1-1.5); ALKALINE PHOSPHATASE 59 IU/L (46-116); ANION GAP 6 (8-16); ASPARTATE AMINO TRANSFERASE 12 U/L (10-37); BILIRUBIN,TOTAL 0.3 MG/DL (0.1-1.0); BLOOD UREA NITROGEN 14 MG/DL (7-18); BUN/CREATININE RATIO 31.1 (6.6-38.0); CALCIUM 8.8 MG/DL (8.5-10.1); CHLORIDE 102 MMOL/L (99-107); CREATININE 0.45 MG/DL (0.40-0.90); GLUCOSE 113 MG/DL (70-104); MAGNESIUM 2.4 MG/DL (1.5-2.4); POTASSIUM 3.3 MMOL/L (3.5-5.1); SODIUM 144 MMOL/L (135-145); TOTAL CARBON DIOXIDE 36.1 MMOL/L (24-32); TOTAL PROTEIN 6.8 G/DL (6.4-8.2); eGFR > 90 ML/MIN
[2022-05-11] MEDS: POTASSIUM BICARB 20meq eff tab 20 MEQ TABLET.EFF PO PRN ×3 (09:40→16:22)
[2022-05-11 11:00] VITALS: BP 134/76
[2022-05-11] MEDS: liothyronine sod 5mcg tablet PO SCH (12:17)
[2022-05-11 15:00] VITALS: BP 124/73
[2022-05-11 18:00] VITALS: BP 148/62
[2022-05-11] MEDS: insulin glargine (Lantus) pen - multi-dose SQ SCH (21:00)
[2022-05-11] MEDS: atorvastatin 20mg tablet PO SCH (21:15)
[2022-05-11] MEDS: enoxaparin 40mg/0.4ml syringe SQ SCH (21:19)
--- NOTE | 2022-05-11 22:01 | NUR ---
Patient is not on protocol to do Lantus.
[2022-05-11 23:45] VITALS: BP 125/56
[2022-05-12] MEDS: methylPREDNISolone sod succ 125mg/2ml vial IV SCH ×3 (00:50→16:08)
[2022-05-12 02:00] VITALS: BP 115/55
[2022-05-12 06:00] VITALS: BP 124/60
--- NOTE | 2022-05-12 06:36 | NUR ---
PT RESTING IN BED. NOT IN DISTRESS OVERNIGHT. REPORT GIVEN TO ONCOMING NURSE.
[2022-05-12] MEDS: K and/or MAG REPLACEMENT MC SCH ×2 (08:00→19:30)
[2022-05-12] MEDS: TYPE IN GENERIC & BRAND NAME OF PATIENT MED STRENGTH & FORM PO SCH (08:00)
[2022-05-12] MEDS: pregabalin 25mg capsule PO SCH ×3 (08:24→19:44)
[2022-05-12] MEDS: HYDROcodone/acetaminophen 10/325mg tab PO PRN (08:25)
[2022-05-12] MEDS: ESCITALOPRAM OXALATE 5 MG TABLET PO SCH (08:25)
[2022-05-12] MEDS: docusate sod 100mg capsule PO SCH ×2 (08:25→19:44)
[2022-05-12] MEDS: metFORMIN 500mg tablet PO SCH ×2 (08:25→19:43)
[2022-05-12] MEDS: loratadine 10mg tablet PO SCH (08:25)
[2022-05-12] MEDS: liothyronine sod 5mcg tablet PO SCH (08:25)
[2022-05-12] MEDS: nystatin 15 GM powder TP SCH ×3 (08:26→22:57)
[2022-05-12 09:12] LABS: BASOPHILS % (AUTO) 0.1 % (0-1); EOSINOPHILS % (AUTO) 0 % (0-6); HEMATOCRIT 36.8 % (35.0-45.0); HEMOGLOBIN 11.6 g/dl (12.0-16.0); LYMPHOCYTES # (AUTO) 0.8 X10'3 (1.1-4.8); LYMPHOCYTES % (AUTO) 11.1 % (21-51); MEAN CORPUSCULAR HEMOGLOBIN 25.6 PG (27.0-31.0); MEAN CORPUSCULAR HGB CONC 31.5 g/dL (33.0-36.5); MEAN CORPUSCULAR VOLUME 81.2 FL (78-98); MEAN PLATELET VOLUME 7.6 FL (7.4-10.4); MONOCYTES # (AUTO) 0.4 X10'3 (0-0.9); NEUTROPHILS # (AUTO) 6.2 X10'3 (1.8-7.7); NEUTROPHILS % (AUTO) 83.8 % (42-75); PLATELET COUNT 455 X10'3 (140-440); RED BLOOD COUNT 4.53 X10'6 (4.20-5.60); RED CELL DISTRIBUTION WIDTH 17.6 % (11.5-14.5); WHITE BLOOD COUNT 7.4 X10'3 (4.5-11.0)
[2022-05-12 09:30] LABS: ALANINE AMINOTRANSFERASE 21 U/L (12-78); ALBUMIN 3.1 G/DL (3.4-5.0); ALBUMIN/GLOBULIN RATIO 0.8 (1.1-1.5); ALKALINE PHOSPHATASE 59 IU/L (46-116); ANION GAP 6 (8-16); ASPARTATE AMINO TRANSFERASE 13 U/L (10-37); BILIRUBIN,TOTAL 0.4 MG/DL (0.1-1.0); BLOOD UREA NITROGEN 15 MG/DL (7-18); BUN/CREATININE RATIO 30.6 (6.6-38.0); CALCIUM 8.9 MG/DL (8.5-10.1); CHLORIDE 100 MMOL/L (99-107); CREATININE 0.49 MG/DL (0.40-0.90); GLUCOSE 156 MG/DL (70-104); MAGNESIUM 2.6 MG/DL (1.5-2.4); POTASSIUM 4.2 MMOL/L (3.5-5.1); SODIUM 143 MMOL/L (135-145); TOTAL CARBON DIOXIDE 36.8 MMOL/L (24-32); TOTAL PROTEIN 7.2 G/DL (6.4-8.2); eGFR > 90 ML/MIN
[2022-05-12] MEDS: oxyCODONE/APAP 5-325mg tablet PO PRN ×2 (10:51→16:05)
[2022-05-12 11:00] VITALS: BP 118/66
[2022-05-12 15:00] VITALS: BP 134/83
[2022-05-12 18:00] VITALS: BP 140/82
[2022-05-12] MEDS: insulin Lispro (HumaLOG) vial - multi-dose SQ SCH (19:41)
[2022-05-12] MEDS: enoxaparin 40mg/0.4ml syringe SQ SCH (19:43)
[2022-05-12] MEDS: atorvastatin 20mg tablet PO SCH (19:44)
[2022-05-12] MEDS: oxyCODONE/APAP 10/325mg tablet PO PRN (20:25)
[2022-05-12 22:00] VITALS: BP 150/80
[2022-05-12] MEDS: insulin glargine (Lantus) pen - multi-dose SQ SCH (22:53)
[2022-05-13] MEDS: methylPREDNISolone sod succ 125mg/2ml vial IV SCH ×3 (01:01→16:50)
[2022-05-13 02:00] VITALS: BP 132/64
[2022-05-13] MEDS: oxyCODONE/APAP 10/325mg tablet PO PRN ×2 (05:09→22:22)
[2022-05-13 06:00] VITALS: BP 140/74
--- NOTE | 2022-05-13 06:00 | NUR ---
check patient blood sugar at 04:45 AM, it was 158 related to last night BS was 75, per protocol still needed to do Lantus 12 units but offered Patient snack and patient ate snack at 2200 PM to make sure in the morning BS will not be too low.
[2022-05-13 06:49] LABS: ALANINE AMINOTRANSFERASE 21 U/L (12-78); ALBUMIN/GLOBULIN RATIO 0.8 (1.1-1.5); ALKALINE PHOSPHATASE 56 IU/L (46-116); ANION GAP 4 (8-16); ASPARTATE AMINO TRANSFERASE 11 U/L (10-37); BILIRUBIN,TOTAL 0.4 MG/DL (0.1-1.0); BLOOD UREA NITROGEN 21 MG/DL (7-18); BUN/CREATININE RATIO 41.2 (6.6-38.0); CALCIUM 8.3 MG/DL (8.5-10.1); CHLORIDE 104 MMOL/L (99-107); CREATININE 0.51 MG/DL (0.40-0.90); GLUCOSE 169 MG/DL (70-104); MAGNESIUM 2.2 MG/DL (1.5-2.4); POTASSIUM 4.6 MMOL/L (3.5-5.1); SODIUM 141 MMOL/L (135-145); TOTAL CARBON DIOXIDE 33.4 MMOL/L (24-32); TOTAL PROTEIN 6.7 G/DL (6.4-8.2); eGFR > 90 ML/MIN
[2022-05-13 06:53] LABS: BASOPHILS % (AUTO) 0.1 % (0-1); EOSINOPHILS % (AUTO) 0 % (0-6); HEMATOCRIT 36.9 % (35.0-45.0); HEMOGLOBIN 11.7 g/dl (12.0-16.0); LYMPHOCYTES # (AUTO) 0.8 X10'3 (1.1-4.8); LYMPHOCYTES % (AUTO) 8.6 % (21-51); MEAN CORPUSCULAR HEMOGLOBIN 26.2 PG (27.0-31.0); MEAN CORPUSCULAR HGB CONC 31.7 g/dL (33.0-36.5); MEAN CORPUSCULAR VOLUME 82.7 FL (78-98); MEAN PLATELET VOLUME 7.4 FL (7.4-10.4); MONOCYTES # (AUTO) 0.4 X10'3 (0-0.9); NEUTROPHILS # (AUTO) 7.8 X10'3 (1.8-7.7); NEUTROPHILS % (AUTO) 87.3 % (42-75); PLATELET COUNT 419 X10'3 (140-440); RED BLOOD COUNT 4.46 X10'6 (4.20-5.60); RED CELL DISTRIBUTION WIDTH 17.7 % (11.5-14.5)
[2022-05-13] MEDS: K and/or MAG REPLACEMENT MC SCH ×2 (08:00→19:13)
[2022-05-13] MEDS: TYPE IN GENERIC & BRAND NAME OF PATIENT MED STRENGTH & FORM PO SCH (08:00)
[2022-05-13] MEDS: liothyronine sod 5mcg tablet PO SCH (08:14)
[2022-05-13] MEDS: pregabalin 25mg capsule PO SCH ×3 (08:15→19:49)
[2022-05-13] MEDS: ESCITALOPRAM OXALATE 5 MG TABLET PO SCH (08:15)
[2022-05-13] MEDS: loratadine 10mg tablet PO SCH (08:16)
[2022-05-13] MEDS: docusate sod 100mg capsule PO SCH ×2 (08:16→19:49)
[2022-05-13] MEDS: metFORMIN 500mg tablet PO SCH ×2 (08:16→19:50)
[2022-05-13] MEDS: nystatin 15 GM powder TP SCH ×3 (08:17→19:58)
[2022-05-13] MEDS: oxyCODONE/APAP 5-325mg tablet PO PRN ×2 (10:34→14:32)
[2022-05-13 11:00] VITALS: BP 130/87
[2022-05-13] MEDS ORDERED: OXYC1TAB17 PO (11:43)
[2022-05-13] MEDS ORDERED: PRED20TA PO (11:43)
[2022-05-13 15:00] VITALS: BP 137/68
[2022-05-13 18:00] VITALS: BP 155/79
[2022-05-13] MEDS: insulin Lispro (HumaLOG) vial - multi-dose SQ SCH (19:20)
--- NOTE | 2022-05-13 19:21 | NUR ---
Patient refused after dinner correction and nutrition insulin. 1700 PM BS was 87.
[2022-05-13] MEDS: atorvastatin 20mg tablet PO SCH (19:50)
[2022-05-13] MEDS: enoxaparin 40mg/0.4ml syringe SQ SCH (19:54)
[2022-05-13 22:00] VITALS: BP 124/66
[2022-05-13] MEDS: insulin glargine (Lantus) pen - multi-dose SQ SCH (22:37)
[2022-05-14] MEDS: methylPREDNISolone sod succ 125mg/2ml vial IV SCH ×2 (00:26→07:32)
[2022-05-14 02:00] VITALS: BP 145/42
--- NOTE | 2022-05-14 05:59 | NUR ---
Patient last night 2100 PM blood sugar was 135 did 14 units lantus per protocol, this morning at 0530 AM did check blood sugar in case it will be low (Yesterday lunch time BS was 74), it was 149, continue to closely monitor her glucose.
[2022-05-14 06:00] VITALS: BP 128/59
[2022-05-14 06:38] LABS: BASOPHILS % (AUTO) 0.1 % (0-1); EOSINOPHILS % (AUTO) 0 % (0-6); HEMATOCRIT 37.7 % (35.0-45.0); HEMOGLOBIN 12.1 g/dl (12.0-16.0); LYMPHOCYTES # (AUTO) 0.7 X10'3 (1.1-4.8); LYMPHOCYTES % (AUTO) 7.8 % (21-51); MEAN CORPUSCULAR HEMOGLOBIN 26.2 PG (27.0-31.0); MEAN CORPUSCULAR VOLUME 81.7 FL (78-98); MEAN PLATELET VOLUME 7.3 FL (7.4-10.4); MONOCYTES # (AUTO) 0.2 X10'3 (0-0.9); MONOCYTES % (AUTO) 2.5 % (2-12); NEUTROPHILS # (AUTO) 7.7 X10'3 (1.8-7.7); NEUTROPHILS % (AUTO) 89.6 % (42-75); PLATELET COUNT 409 X10'3 (140-440); RED BLOOD COUNT 4.62 X10'6 (4.20-5.60); RED CELL DISTRIBUTION WIDTH 17.5 % (11.5-14.5); WHITE BLOOD COUNT 8.6 X10'3 (4.5-11.0)
[2022-05-14 07:00] LABS: ALANINE AMINOTRANSFERASE 19 U/L (12-78); ALBUMIN/GLOBULIN RATIO 0.8 (1.1-1.5); ALKALINE PHOSPHATASE 60 IU/L (46-116); ANION GAP 4 (8-16); ASPARTATE AMINO TRANSFERASE 8 U/L (10-37); BILIRUBIN,TOTAL 0.5 MG/DL (0.1-1.0); BLOOD UREA NITROGEN 16 MG/DL (7-18); BUN/CREATININE RATIO 34.8 (6.6-38.0); CALCIUM 8.4 MG/DL (8.5-10.1); CHLORIDE 104 MMOL/L (99-107); CREATININE 0.46 MG/DL (0.40-0.90); GLUCOSE 167 MG/DL (70-104); MAGNESIUM 2.6 MG/DL (1.5-2.4); POTASSIUM 4.3 MMOL/L (3.5-5.1); SODIUM 143 MMOL/L (135-145); TOTAL CARBON DIOXIDE 34.7 MMOL/L (24-32); TOTAL PROTEIN 6.7 G/DL (6.4-8.2); eGFR > 90 ML/MIN
[2022-05-14] MEDS: ESCITALOPRAM OXALATE 5 MG TABLET PO SCH (07:33)
[2022-05-14] MEDS: liothyronine sod 5mcg tablet PO SCH (07:33)
[2022-05-14] MEDS: pregabalin 25mg capsule PO SCH ×2 (07:33→12:58)
[2022-05-14] MEDS: metFORMIN 500mg tablet PO SCH (07:34)
[2022-05-14] MEDS: nystatin 15 GM powder TP SCH ×2 (07:34→12:59)
[2022-05-14] MEDS: loratadine 10mg tablet PO SCH (07:34)
[2022-05-14] MEDS: docusate sod 100mg capsule PO SCH (07:34)
[2022-05-14] MEDS: oxyCODONE/APAP 10/325mg tablet PO PRN (07:46)
[2022-05-14] MEDS: TYPE IN GENERIC & BRAND NAME OF PATIENT MED STRENGTH & FORM PO SCH (08:00)
[2022-05-14] MEDS: K and/or MAG REPLACEMENT MC SCH (08:00)
[2022-05-14 11:00] VITALS: BP 133/76
[2022-05-14 11:28] LABS: ABG BASE EXCESS 2.2 mmol/L (-2.0-2.0); ABG OXYGEN SATURATION 97.3 % (94-97); ABG PCO2 (T) 54.9 mmHg (32.0-45.0); ABG PO2 (T) 98.9 mmHg (75.0-100.0); ALLEN'S TEST POSITIVE; FCOHb 0.4 % (0.0-3.9); FLOW 3 L/min; FMetHb 0.3 % (0.0-1.5); FO2Hb 96.6 % (94-97); TOTAL HEMOGLOBIN 13.2 G/dl (12.0-16.0)
[2022-05-14 11:33] LABS: ABG BASE EXCESS 2.2 mmol/L (-2.0-2.0); ABG OXYGEN SATURATION 97.3 % (94-97); ABG PCO2 (T) 54.9 mmHg (32.0-45.0); ABG PO2 (T) 98.9 mmHg (75.0-100.0); ALLEN'S TEST POSITIVE; FCOHb 0.4 % (0.0-3.9); FLOW 3 L/min; FMetHb 0.3 % (0.0-1.5); FO2Hb 96.6 % (94-97); TOTAL HEMOGLOBIN 13.2 G/dl (12.0-16.0)
[2022-05-14] MEDS: insulin Lispro (HumaLOG) vial - multi-dose SQ SCH (13:49)
--- NOTE | 2022-05-14 15:38 | NUR ---
discharge instructions discussed with patient. all questions answered. pt states she understands all instructions. Pt's ride is coming at 1600 to take her home. Will D/C iv and telemetry when ride gets here.
== END 2022-05-14 16:00 | disposition home health service (06) | DRG 140 ==
LOC: ER 04:55 → ED HOLD 15:35 → PCU 3S 19:36
PROVIDERS: ADMIT Family Medicine; ATTEND Family Medicine
PROC: 5A09357 Assistance with Respiratory Ventilation, Less than 24 Consecutive Hours, Continuous Positive Airway Pressure (ICD-10-PCS; principal; 2022-05-09)
PROC: 5A09357 Assistance with Respiratory Ventilation, Less than 24 Consecutive Hours, Continuous Positive Airway Pressure (ICD-10-PCS; 2022-05-10)
DX: J43.9 Emphysema, unspecified (principal); J96.21 Acute and chronic respiratory failure with hypoxia; G93.41 Metabolic encephalopathy; J96.22 Acute and chronic respiratory failure with hypercapnia; E87.2 Acidosis; I50.32 Chronic diastolic (congestive) heart failure; F29 Unspecified psychosis not due to a substance or known physiological condition; F31.9 Bipolar disorder, unspecified; G43.909 Migraine, unspecified, not intractable, without status migrainosus; G89.29 Other chronic pain; K21.9 Gastro-esophageal reflux disease without esophagitis; S96.911A Strain of unspecified muscle and tendon at ankle and foot level, right foot, initial encounter; M54.9 Dorsalgia, unspecified; W18.39XA Other fall on same level, initial encounter; E11.9 Type 2 diabetes mellitus without complications; E87.6 Hypokalemia; M79.671 Pain in right foot; F41.0 Panic disorder [episodic paroxysmal anxiety]; Z86.73 Personal history of transient ischemic attack (TIA), and cerebral infarction without residual deficits; Z87.891 Personal history of nicotine dependence; Z88.2 Allergy status to sulfonamides; Z88.8 Allergy status to other drugs, medicaments and biological substances; Y93.89 Activity, other specified; Y92.89 Other specified places as the place of occurrence of the external cause; Y99.8 Other external cause status; Z79.899 Other long term (current) drug therapy; Z79.82 Long term (current) use of aspirin
CPT/HCPCS: 36415; 36600; 70450; 72125; 73502; 73610; 73718; 80053; 81003; 82800; 82803; 82810; 82948; 83036; 83735; 83880; 84484; 84550; 85018; 85025; 87081; 93005; 93971; 94640; 94660; 94760; 96374; 97116; 97161; 97530; 99285; A7015; G0378; J1650; J1815; J2930; L1930

== ENCOUNTER 2022-05-30 10:28 | Emergency (ER) | payer MEDICAID ==
[~2022-05-30] VITALS: Ht 162.6 cm; Wt 109.1 kg
[~2022-05-30 10:28] MED LIST changes: +ALBU17AE26 PO; -ALBU2TAB4 PO; -ASPI-1265 PO; +ATOR40TA72 PO; -CYCL-1 PO; -FLUT100B3 INH; +FLUT1BLS16 PO; -FURO-150 PO; +LIOT25TA12 PO; -LOPE-144 PO; +LORA10TA7 PO; +METF-438 PO; +OXYC1TAB17 PO; -QUET25TA PO; +QUET50TA24 PO
[2022-05-30 12:02] VITALS: BP 106/74
[2022-05-30] MEDS ORDERED: ketorolac trometh inj. 60 MG/2 ML VIAL IM ONE (13:05)
[2022-05-30] MEDS ORDERED: IBUP-1986 PO (13:15)
[2022-05-30] MEDS ORDERED: HYDROcodone/acetaminophen 10/325mg tab PO ONE (13:20)
== END 2022-05-30 14:10 | disposition home or self-care (01) ==
LOC: ER 10:28
DX: S93.492A Sprain of other ligament of left ankle, initial encounter (principal); J45.909 Unspecified asthma, uncomplicated; J44.9 Chronic obstructive pulmonary disease, unspecified; K21.9 Gastro-esophageal reflux disease without esophagitis; E11.9 Type 2 diabetes mellitus without complications; G89.29 Other chronic pain; M54.9 Dorsalgia, unspecified; F31.9 Bipolar disorder, unspecified; I11.9 Hypertensive heart disease without heart failure; Z88.2 Allergy status to sulfonamides; Z88.8 Allergy status to other drugs, medicaments and biological substances; Z88.1 Allergy status to other antibiotic agents; Z79.899 Other long term (current) drug therapy; Z79.84 Long term (current) use of oral hypoglycemic drugs; Z79.1 Long term (current) use of non-steroidal anti-inflammatories (NSAID); Z79.2 Long term (current) use of antibiotics; W18.39XA Other fall on same level, initial encounter; Y93.89 Activity, other specified; Y92.89 Other specified places as the place of occurrence of the external cause; Y99.8 Other external cause status
CPT/HCPCS: 29515; 73610; 96372; 99284; J1885; L0172; L1930

== ENCOUNTER 2022-09-16 01:36 | Emergency (ER) | payer MEDICAID ==
[~2022-09-16] VITALS: Ht 170.2 cm; Wt 95.5 kg
[~2022-09-16 01:36] MED LIST changes: +IBUP-1986 PO
[2022-09-16 03:00] VITALS: BP 101/64
[2022-09-16 03:13] LABS: BASOPHILS % (AUTO) 0.2 % (0-1); EOSINOPHILS # (AUTO) 0.7 X10'3 (0-0.9); EOSINOPHILS % (AUTO) 7.6 % (0-6); HEMATOCRIT 37.4 % (35.0-45.0); HEMOGLOBIN 11.8 g/dl (12.0-16.0); LYMPHOCYTES # (AUTO) 1.2 X10'3 (1.1-4.8); LYMPHOCYTES % (AUTO) 12.9 % (21-51); MEAN CORPUSCULAR HEMOGLOBIN 25.8 PG (27.0-31.0); MEAN CORPUSCULAR HGB CONC 31.6 g/dL (33.0-36.5); MEAN CORPUSCULAR VOLUME 81.4 FL (78-98); MEAN PLATELET VOLUME 7.2 FL (7.4-10.4); MONOCYTES # (AUTO) 0.5 X10'3 (0-0.9); MONOCYTES % (AUTO) 5.5 % (2-12); NEUTROPHILS # (AUTO) 6.8 X10'3 (1.8-7.7); NEUTROPHILS % (AUTO) 73.8 % (42-75); PLATELET COUNT 340 X10'3 (140-440); RED BLOOD COUNT 4.59 X10'6 (4.20-5.60); RED CELL DISTRIBUTION WIDTH 18.6 % (11.5-14.5); WHITE BLOOD COUNT 9.2 X10'3 (4.5-11.0)
[2022-09-16 03:23] LABS: ALANINE AMINOTRANSFERASE 18 U/L (12-78); ALBUMIN 3.2 G/DL (3.4-5.0); ALBUMIN/GLOBULIN RATIO 0.8 (1.1-1.5); ALKALINE PHOSPHATASE 60 IU/L (46-116); ANION GAP 2 (8-16); ASPARTATE AMINO TRANSFERASE 14 U/L (10-37); BILIRUBIN,TOTAL 0.4 MG/DL (0.1-1.0); BLOOD UREA NITROGEN 8 MG/DL (7-18); BUN/CREATININE RATIO 21.1 (6.6-38.0); CALCIUM 9.3 MG/DL (8.5-10.1); CHLORIDE 99 MMOL/L (99-107); CREATININE 0.38 MG/DL (0.40-0.90); GLUCOSE 96 MG/DL (70-104); POTASSIUM 3.5 MMOL/L (3.5-5.1); SODIUM 141 MMOL/L (135-145); TOTAL PROTEIN 7.1 G/DL (6.4-8.2); eGFR > 90 ML/MIN
[2022-09-16] MEDS ORDERED: TRAM1TAB7 PO (03:32)
[2022-09-16 03:41] LABS: TOTAL CARBON DIOXIDE 40.2 MMOL/L (24-32)
[2022-09-16 03:50] LABS: ANISOCYTOSIS 2+; PLATELET ESTIMATE NORMAL
[2022-09-16 03:52] LABS: ELLIPTOCYTES 1+; SCHISTOCYTES FEW
[2022-09-16 03:53] LABS: HYPOCHROMASIA 1+
[2022-09-16] MEDS ORDERED: ketorolac trometh inj. 60 MG/2 ML VIAL IM ONE (04:35)
[2022-09-16] MEDS ORDERED: LIDOcaine 5% patch TP STA (04:35)
== END 2022-09-16 04:53 | disposition home or self-care (01) ==
LOC: ER 01:37
DX: M25.562 Pain in left knee (principal); M62.81 Muscle weakness (generalized); G43.909 Migraine, unspecified, not intractable, without status migrainosus; J44.9 Chronic obstructive pulmonary disease, unspecified; K21.9 Gastro-esophageal reflux disease without esophagitis; E11.9 Type 2 diabetes mellitus without complications; M19.90 Unspecified osteoarthritis, unspecified site; G89.29 Other chronic pain; F41.9 Anxiety disorder, unspecified; Z87.891 Personal history of nicotine dependence; Z86.73 Personal history of transient ischemic attack (TIA), and cerebral infarction without residual deficits; Z88.2 Allergy status to sulfonamides; Z88.1 Allergy status to other antibiotic agents; Z88.8 Allergy status to other drugs, medicaments and biological substances; Z79.84 Long term (current) use of oral hypoglycemic drugs; Z79.899 Other long term (current) drug therapy; W18.39XA Other fall on same level, initial encounter; Y93.89 Activity, other specified; Y92.89 Other specified places as the place of occurrence of the external cause; Y99.8 Other external cause status
CPT/HCPCS: 36415; 72170; 73560; 80053; 85008; 85025; 96372; 99284; J1885; 99283

== ENCOUNTER 2023-01-28 12:22 | Emergency (ER) | payer MEDICAID ==
[~2023-01-28] VITALS: Ht 170.2 cm; Wt 109.1 kg
[2023-01-28 13:01] VITALS: BP 119/67
--- NOTE | 2023-01-28 13:09 | NUR ---
PT FORGOT HER O2 TANK ,USES 4L 02 24 X7 ,SPO2 88 ON RA IN TRIAGE ,PLACED ON 4L O2 .
[2023-01-28] MEDS ORDERED: HYDROcodone/acetaminophen 5mg/325mg tablet PO ONE (14:30)
== END 2023-01-28 16:34 | disposition home or self-care (01) ==
LOC: ER 12:22
DX: S93.402A Sprain of unspecified ligament of left ankle, initial encounter (principal); M79.671 Pain in right foot; M79.672 Pain in left foot; G43.909 Migraine, unspecified, not intractable, without status migrainosus; J45.909 Unspecified asthma, uncomplicated; J44.9 Chronic obstructive pulmonary disease, unspecified; K21.9 Gastro-esophageal reflux disease without esophagitis; E11.9 Type 2 diabetes mellitus without complications; M19.90 Unspecified osteoarthritis, unspecified site; F31.9 Bipolar disorder, unspecified; Z88.2 Allergy status to sulfonamides; W19.XXXA Unspecified fall, initial encounter; Y93.89 Activity, other specified; Y92.89 Other specified places as the place of occurrence of the external cause; Y99.8 Other external cause status
CPT/HCPCS: 73630; 99284; A6449

== ENCOUNTER 2023-05-22 10:41 | Inpatient (IN) | payer MEDICAID ==
[2023-05-22] VITALS (7 sets, daily range): PULSE 100–109; RESP 16–24; O2SAT 93–97
[~2023-05-22] VITALS: Ht 170.2 cm; Wt 95.0 kg
[~2023-05-22 10:41] MED LIST changes: +ALBU17AE26 IH; -ALBU17AE26 PO; -PREG100C55 PO; +PREG100C56 PO
[2023-05-22 11:32] LABS: URINE AMPHETAMINE SCREEN NEGATIVE (Neg); URINE BARBITUATE SCREEN NEGATIVE (Neg); URINE BENZODIAZEPINES SCREEN NEGATIVE (Neg); URINE CANNABINOID SCREEN NEGATIVE (Neg); URINE COCAINE SCREEN NEGATIVE (Neg); URINE METHADONE SCREEN NEGATIVE (Neg); URINE OPIATE SCREEN NEGATIVE (Neg); URINE PHENCYCLIDINE SCREEN NEGATIVE (Neg)
[2023-05-22] MEDS ORDERED: ringers solution, lacted 1,000 ML IV ONE (11:40)
[2023-05-22 12:45] LABS: BASOPHILS % (AUTO) 0 % (0-1); EOSINOPHILS % (AUTO) 0.1 % (0-6); HEMATOCRIT 34.8 % (35.0-45.0); HEMOGLOBIN 11.3 g/dl (12.0-16.0); LYMPHOCYTES # (AUTO) 0.8 X10'3 (1.1-4.8); LYMPHOCYTES % (AUTO) 5.4 % (21-51); MEAN CORPUSCULAR HEMOGLOBIN 30.2 PG (27.0-31.0); MEAN CORPUSCULAR HGB CONC 32.5 g/dL (33.0-36.5); MEAN CORPUSCULAR VOLUME 92.8 FL (78-98); MEAN PLATELET VOLUME 7.8 FL (7.4-10.4); MONOCYTES # (AUTO) 1.3 X10'3 (0-0.9); MONOCYTES % (AUTO) 8.3 % (2-12); NEUTROPHILS # (AUTO) 13.2 X10'3 (1.8-7.7); NEUTROPHILS % (AUTO) 86.2 % (42-75); PLATELET COUNT 309 X10'3 (140-440); RED BLOOD COUNT 3.75 X10'6 (4.20-5.60); RED CELL DISTRIBUTION WIDTH 14.1 % (11.5-14.5); WHITE BLOOD COUNT 15.3 X10'3 (4.5-11.0)
[2023-05-22 12:59] LABS: APTT 32 SECONDS (22-32); PROTHROMBIN TIME 11.1 SECONDS (9.0-12.0)
[2023-05-22 13:05] LABS: ALANINE AMINOTRANSFERASE 33 U/L (12-78); ALBUMIN 3.1 G/DL (3.4-5.0); ALBUMIN/GLOBULIN RATIO 0.7 (1.1-1.5); ALKALINE PHOSPHATASE 111 IU/L (46-116); ANION GAP 2 (8-16); ASPARTATE AMINO TRANSFERASE 22 U/L (10-37); BILIRUBIN,TOTAL 0.6 MG/DL (0.1-1.0); BLOOD UREA NITROGEN 9 MG/DL (7-18); BUN/CREATININE RATIO 15.3 (10.0-20.0); CALCIUM 9.1 MG/DL (8.5-10.1); CHLORIDE 98 MMOL/L (99-107); CREATININE 0.59 MG/DL (0.40-0.90); GLUCOSE 154 MG/DL (70-104); POTASSIUM 3.5 MMOL/L (3.5-5.1); SODIUM 137 MMOL/L (135-145); TOTAL CARBON DIOXIDE 36.9 MMOL/L (24-32); TOTAL PROTEIN 7.6 G/DL (6.4-8.2); eCRCL 97 ML/MIN; eGFR > 90 ML/MIN
[2023-05-22 13:36] LABS: TOTAL CELLS COUNTED 100
[2023-05-22 13:37] LABS: LARGE PLATELETS FEW; PLATELET ESTIMATE NORMAL
[2023-05-22 13:38] LABS: ANISOCYTOSIS 1+
[2023-05-22 13:42] LABS: ABG BASE EXCESS 6.9 mmol/L (-2.0-2.0); ABG HCO3 36.3 mmol/L (22.0-26.0); ABG OXYGEN SATURATION 93.8 % (94-97); ABG PCO2 (T) 79.7 mmHg (32.0-45.0); ABG PH (T) 7.275 (7.350-7.450); ABG PO2 (T) 69.4 mmHg (75.0-100.0); ALLEN'S TEST POSITIVE; FCOHb 0.4 % (0.0-3.9); FHHb 6.2 % (0.0-5.0); FLOW 3 L/min; FMetHb 0.4 % (0.0-1.5); MODE NASAL CANNULA; PATIENT TEMPERATURE 36.8; TOTAL HEMOGLOBIN 11.8 G/dl (12.0-16.0)
[2023-05-22] MEDS ORDERED: FURO20TA4 PO (13:54)
[2023-05-22] MEDS ORDERED: SUMA50TA17 PO (13:54)
[2023-05-22] MEDS ORDERED: KETO15CR2 TOP (13:54)
[2023-05-22] MEDS ORDERED: FLUT1BLS4 PO (13:54)
[2023-05-22] MEDS ORDERED: LORA-269 PO (13:54)
[2023-05-22] MEDS ORDERED: BUPR1FIL17 SL (13:54)
[2023-05-22] MEDS ORDERED: DIPH-522 PO (13:54)
[2023-05-22] MEDS ORDERED: MESSAGE TO PHARMACY PO ONE (14:30)
[2023-05-22] MEDS ORDERED: morphine 2 MG/ML inj. syringe IV PRN ×2 (14:30)
[2023-05-22] MEDS ORDERED: magnesium hydroxide 30ml (MOM) UD suspension PO PRN (14:30)
[2023-05-22] MEDS ORDERED: mag hydrox/Alum hydrox/simeth 30ml oral suspension PO PRN (14:30)
[2023-05-22] MEDS ORDERED: glucagon, human recombinant 1mg kit SUBCUT PRN (14:30)
[2023-05-22] MEDS ORDERED: dextrose 50%-water 50ml dispensing syringe IV PRN ×2 (14:30)
[2023-05-22] MEDS ORDERED: ondansetron/PF 4mg/2ml inj IV PRN (14:30)
[2023-05-22] MEDS ORDERED: HYDROcodone/acetaminophen 5mg/325mg tablet PO PRN (14:30)
[2023-05-22] MEDS ORDERED: DEXTROSE 15 GM of carb/4 tabs (each vial/BOTTLE has 4 tablets) PO PRN ×2 (14:30)
[2023-05-22] MEDS ORDERED: insulin Lispro (HumaLOG) vial - multi-dose SQ SCH (14:30)
[2023-05-22] MEDS ORDERED: acetaminophen 325mg tablet PO PRN ×2 (14:30)
[2023-05-22 14:35] LABS: BILIRUBIN,URINE NEGATIVE (Neg); CLARITY,URINE CLOUDY (Clear); COLOR,URINE YELLOW (Yellow); GLUCOSE, URINE NEGATIVE (Neg); KETONES,URINE NEGATIVE (Neg); LEUKOCYTE ESTERASE ,URINE MODERATE (Neg); NITRITES, URINE NEGATIVE (Neg); OCCULT BLOOD,URINE TRACE-INTACT (Neg); PROTEIN,URINE TRACE mg/dl (Neg); UROBILINOGEN,URINE 0.2 E.U/dL (0.2-1.0)
[2023-05-22] MEDS: normal saline 1000ml 1,000 ML IV SCH (14:35)
[2023-05-22] MEDS ORDERED: SUMAtriptan 25 MG tablet PO PRN (14:40)
[2023-05-22] MEDS ORDERED: diphenoxylate/atropine tablet (Lomotil) PO PRN (14:40)
[2023-05-22] MEDS ORDERED: non-formulary drug (Quetiapine Fumarate 1 TAB) PO PRN (14:40)
[2023-05-22 14:44] LABS: UA COLLECTION TYPE FOLEY CATH
[2023-05-22 14:45] LABS: BACTERIA,URINE 4+ /HPF (Neg); RBC,URINE NONE SEEN /HPF (0-2); WBC,URINE 30-50 /HPF (0-4)
[2023-05-22 14:46] LABS: MUCUS STRANDS NONE SEEN /LPF (Neg); SQUAMOUS EPITHELIAL CELL,UR FEW /LPF (FEW); WBC CLUMPS,URINE FEW /HPF (NEGATIVE)
[2023-05-22] MEDS ORDERED: QUEtiapine 25mg tablet PO PRN (14:56)
--- NOTE | 2023-05-22 15:22 | NUR ---
PER DR HALL DO NOT PLACE TRACTION. ORDERS RECEIVED TO PLACE PT IN SHORT LEG JORDI SPLINT INSTEAD
[2023-05-22 15:41] LABS: HEMOGLOBIN A1C 5.5 % (4.5-6.2)
[2023-05-22 15:49] LABS: PRO BRAIN NATRIURETIC PEPTIDE 181 PG/ML (0-125)
[2023-05-22 15:53] LABS: ABG BASE EXCESS 9.5 mmol/L (-2.0-2.0); ABG HCO3 38.9 mmol/L (22.0-26.0); ABG OXYGEN SATURATION 94.7 % (94-97); ABG PCO2 (T) 82.1 mmHg (32.0-45.0); ABG PH (T) 7.293 (7.350-7.450); ABG PO2 (T) 71.6 mmHg (75.0-100.0); ALLEN'S TEST POSITIVE; FCOHb 0.6 % (0.0-3.9); FHHb 5.3 % (0.0-5.0); FMetHb 0.3 % (0.0-1.5); FO2Hb 93.8 % (94-97); MODE MASK - BIPAP; RESPIRATORY RATE 16 b/min; TOTAL HEMOGLOBIN 11.8 G/dl (12.0-16.0)
[2023-05-22] MEDS: NALOXONE HCL SL SCH ×2 (16:00→20:00)
[2023-05-22] MEDS: BUPRENORPHINE HCL SL SCH ×2 (16:00→20:00)
[2023-05-22] MEDS: albuterol 2.5 MG/3 ML nebule NEB PRN (16:16)
--- NOTE | 2023-05-22 18:32 | NUR ---
Called Dr. Patrick due to patient's positive UTI, requesting medications. Darnell verbilized he will be putting in orders to cover the UTI.
[2023-05-22] MEDS: pregabalin 25mg capsule PO SCH (19:46)
[2023-05-22] MEDS: furosemide 20MG tablet PO SCH (19:46)
[2023-05-22] MEDS: metFORMIN 500mg tablet PO SCH (19:47)
[2023-05-22] MEDS: docusate sod 100mg capsule PO SCH (19:52)
[2023-05-22] MEDS ORDERED: ACET325T55 PO (19:56)
--- NOTE | 2023-05-22 20:45 | NUR ---
dianelys son phone # , Chintan son medical information ok to give to both sons over the phone if they say the secret password "flashlight."
[2023-05-22] MEDS ORDERED: insulin glargine (Lantus) pen - multi-dose SQ SCH (21:00)
--- NOTE | 2023-05-22 22:19 | NUR ---
Called Dr. Castrejon about patient, UA results. Orders given.
[2023-05-22] MEDS ORDERED: CefTRIAXone/D5W-Rocephin 1gm 50 ML IV STA (22:20)
[2023-05-23] VITALS (12 sets, daily range): BP systolic 97–138; BP diastolic 55–75; PULSE 92–113; RESP 16–24; TEMP 96.9–97.9; O2SAT 9–95
[2023-05-23] MEDS: albuterol 2.5 MG/3 ML nebule NEB PRN (01:05)
[2023-05-23] MEDS: normal saline 1000ml 1,000 ML IV SCH ×3 (01:22→20:30)
[2023-05-23] MEDS: NALOXONE HCL SL SCH ×4 (04:00→20:00)
[2023-05-23] MEDS: BUPRENORPHINE HCL SL SCH ×4 (04:00→20:00)
--- NOTE | 2023-05-23 06:36 | NUR ---
RECEIVED REPORT, ASSUMED PT CARE. PT WTG SURGERY. PT WAS ANXIOUS BUTFELL ASLEEP AFTER LIGHTS WERE DIMMED.
[2023-05-23 07:50] LABS: BASOPHILS % (AUTO) 0.1 % (0-1); EOSINOPHILS % (AUTO) 0.2 % (0-6); HEMATOCRIT 31.1 % (35.0-45.0); HEMOGLOBIN 10.1 g/dl (12.0-16.0); LYMPHOCYTES % (AUTO) 7.3 % (21-51); MEAN CORPUSCULAR HEMOGLOBIN 30.2 PG (27.0-31.0); MEAN CORPUSCULAR HGB CONC 32.5 g/dL (33.0-36.5); MEAN CORPUSCULAR VOLUME 92.9 FL (78-98); MEAN PLATELET VOLUME 7.1 FL (7.4-10.4); MONOCYTES # (AUTO) 1.6 X10'3 (0-0.9); MONOCYTES % (AUTO) 11.2 % (2-12); NEUTROPHILS # (AUTO) 11.3 X10'3 (1.8-7.7); NEUTROPHILS % (AUTO) 81.2 % (42-75); PLATELET COUNT 345 X10'3 (140-440); RED BLOOD COUNT 3.35 X10'6 (4.20-5.60); RED CELL DISTRIBUTION WIDTH 14.1 % (11.5-14.5); WHITE BLOOD COUNT 13.9 X10'3 (4.5-11.0)
[2023-05-23] MEDS: Fluticasone/Umeclidin/Vilanter (Trelegy Ellipta 100-62.5-25) PO SCH (08:00)
[2023-05-23 08:06] LABS: ALBUMIN 2.6 G/DL (3.4-5.0); ANION GAP 3 (8-16); BLOOD UREA NITROGEN 8 MG/DL (7-18); CALCIUM 8.8 MG/DL (8.5-10.1); CHLORIDE 101 MMOL/L (99-107); GLUCOSE 135 MG/DL (70-104); POTASSIUM 3.6 MMOL/L (3.5-5.1); SODIUM 138 MMOL/L (135-145); TOTAL CARBON DIOXIDE 34.5 MMOL/L (24-32); eCRCL 115 ML/MIN; eGFR > 90 ML/MIN
--- NOTE | 2023-05-23 08:30 | NUR ---
Patient in room ORTHO 4022. I have received report from ARPAN Orlando and had the opportunity to ask questions and assume patient care.
--- NOTE | 2023-05-23 08:50 | NUR ---
Notified pharmacy about missing medication (Rocephin) for 0800 med pass. Pharmacy stated they would bring it up. Will continue to look for medication in [facility].
[2023-05-23] MEDS: atorvastatin 20mg tablet PO SCH (09:20)
[2023-05-23] MEDS: pregabalin 25mg capsule PO SCH ×2 (09:20→21:05)
[2023-05-23] MEDS: liothyronine sod 5mcg tablet PO SCH (09:21)
[2023-05-23] MEDS: furosemide 20MG tablet PO SCH ×2 (09:22→21:04)
[2023-05-23] MEDS: docusate sod 100mg capsule PO SCH ×2 (09:22→21:03)
[2023-05-23] MEDS: HYDROcodone/acetaminophen 10/325mg tab PO PRN ×3 (09:23→21:04)
[2023-05-23] MEDS: metFORMIN 500mg tablet PO SCH ×2 (09:24→21:03)
[2023-05-23] MEDS: loratadine 10mg tablet PO SCH (09:24)
[2023-05-23] MEDS: ESCITALOPRAM OXALATE 5 MG TABLET PO SCH (09:25)
[2023-05-23] MEDS: CefTRIAXone/D5W-Rocephin 1gm 50 ML IV SCH (10:39)
[2023-05-23] MEDS: morphine 4 MG/ML inj SYRINge IV PRN (11:18)
[2023-05-23] MEDS ORDERED: HYDROmorphone inj. 0.5 MG/0.5 ML DISP.SYRIN IV PRN (13:30)
[2023-05-23] MEDS: LORazepam 1 MG tablet PO PRN (13:36)
--- NOTE | 2023-05-23 18:10 | NUR ---
Problems reprioritized. Patient report given, questions answered & plan of care reviewed with RAYNA Fisher.
[2023-05-23] MEDS ORDERED: ringers solution, lacted 1,000 ML IV ONE (19:15)
[2023-05-24] VITALS (25 sets, daily range): BP systolic 92–147; BP diastolic 64–86; PULSE 80–110; RESP 15–24; TEMP 97–98.7; O2SAT 87–99
[2023-05-24] MEDS: lactulose 20gm/30ml cup PO SCH ×3 (00:36→20:00)
[2023-05-24] MEDS: BUPRENORPHINE HCL SL SCH ×2 (03:38)
[2023-05-24] MEDS: NALOXONE HCL SL SCH ×2 (03:38)
--- NOTE | 2023-05-24 05:50 | NUR ---
I agree with SOLAR POWER INSTALLER physical assessment
[2023-05-24] MEDS: normal saline 1000ml 1,000 ML IV SCH ×3 (05:51→19:00)
[2023-05-24] MEDS ORDERED: famotidine 20mg tablet PO ONE (06:00)
[2023-05-24 06:32] LABS: BASOPHILS % (AUTO) 0.1 % (0-1); EOSINOPHILS # (AUTO) 0.2 X10'3 (0-0.9); EOSINOPHILS % (AUTO) 1.7 % (0-6); HEMATOCRIT 30.8 % (35.0-45.0); HEMOGLOBIN 9.9 g/dl (12.0-16.0); LYMPHOCYTES # (AUTO) 1.2 X10'3 (1.1-4.8); LYMPHOCYTES % (AUTO) 9.1 % (21-51); MEAN CORPUSCULAR HEMOGLOBIN 29.7 PG (27.0-31.0); MEAN CORPUSCULAR VOLUME 92.6 FL (78-98); MEAN PLATELET VOLUME 6.8 FL (7.4-10.4); MONOCYTES # (AUTO) 1.4 X10'3 (0-0.9); MONOCYTES % (AUTO) 10.3 % (2-12); NEUTROPHILS # (AUTO) 10.4 X10'3 (1.8-7.7); NEUTROPHILS % (AUTO) 78.8 % (42-75); PLATELET COUNT 382 X10'3 (140-440); RED BLOOD COUNT 3.32 X10'6 (4.20-5.60); WHITE BLOOD COUNT 13.2 X10'3 (4.5-11.0)
[2023-05-24 06:45] LABS: ALBUMIN 2.4 G/DL (3.4-5.0); ANION GAP 0 (8-16); BLOOD UREA NITROGEN 7 MG/DL (7-18); BUN/CREATININE RATIO 15.2 (10.0-20.0); CALCIUM 9.2 MG/DL (8.5-10.1); CHLORIDE 102 MMOL/L (99-107); CREATININE 0.46 MG/DL (0.40-0.90); GLUCOSE 140 MG/DL (70-104); POTASSIUM 3.8 MMOL/L (3.5-5.1); SODIUM 138 MMOL/L (135-145); eCRCL 125 ML/MIN; eGFR > 90 ML/MIN
[2023-05-24] MEDS ORDERED: BUPIVAcaine/PF 2.5 mg/ml (0.25%) 30ml vial ONE (07:17)
--- NOTE | 2023-05-24 07:35 | NUR ---
Pt drowsy but arousable. Pt oriented to name but needed redirected to place. O2 sats 90% on 5L nc o2. Report given to OR nurse who said to contact son for possible consent. Contacted Danisha Wright who will come up to the Recovery Room as per OR nurse request.
--- NOTE | 2023-05-24 07:38 | NUR ---
Patient in room ORTHO 4022. I have received report from ARPAN Orlando and had the opportunity to ask questions and assume patient care.
[2023-05-24] MEDS ORDERED: labetalol 20mg/4ml (5mg/ml) syringe IV PRN (07:55)
[2023-05-24] MEDS ORDERED: fentaNYL/PF 50MCG/1 ML 2ML syringe IV PRN ×2 (07:55)
[2023-05-24] MEDS ORDERED: morphine 2 MG/ML inj. syringe IV PRN (07:55)
[2023-05-24] MEDS ORDERED: ondansetron/PF 4mg/2ml inj IV PRN (07:55)
[2023-05-24] MEDS ORDERED: hydrALAZINE 20mg/ml inj. IV PRN (07:55)
[2023-05-24] MEDS ORDERED: ringers solution, lacted 1,000 ML IV SCH (07:55)
[2023-05-24] MEDS ORDERED: morphine 4 MG/ML inj SYRINge IV PRN (07:55)
[2023-05-24] MEDS: CefTRIAXone/D5W-Rocephin 1gm 50 ML IV SCH (08:00)
[2023-05-24] MEDS: Fluticasone/Umeclidin/Vilanter (Trelegy Ellipta 100-62.5-25) PO SCH (08:00)
[2023-05-24] MEDS ORDERED: fentaNYL/PF 50MCG/1 ML 2ML syringe ONE (08:05)
[2023-05-24] MEDS ORDERED: MIDAZolam 1 MG/ML 5ML VIAL ONE (08:05)
--- NOTE | 2023-05-24 08:38 | NUR ---
pt is in surgery
[2023-05-24] MEDS ORDERED: ROPIVAcaine 0.5% (5mg/ml) 30ml vial ONE ×2 (08:57→08:58)
--- NOTE | 2023-05-24 10:15 | NUR ---
Received from OR via HOSPITAL BED, accompanied by Anesthesiologist DR WALDROP and report given by Anesthesiologist. PT IS GROGGY. PT PLACED ON BEDSIDE MONITOR, VSS. PT IS RECEIVING 6L O2 TO MASK AND TOLERATING WELL, WILL TITRATE DOWN PT TOLERATES. PT HAS 20G PIV TO LEFT FA WITH LE INFUSING ORDERED. PT HAS SPLINT TO RT LE THAT IS CDI. FLOYD CALTH IN PLACE WITH LIGHT JORDEN URINE NOTED DRAINING TO GRAVITY. PT DENIES PAIN AT THIS TIME, RESTING WITH NO S/S OF DISCOMFORT/DISTRESS NOTED AT THIS TIME. WILL CONTINUE TO ASSESS
--- NOTE | 2023-05-24 11:30 | NUR ---
Spoke with doctor about 0800 Recephin and if i should still give it. OR stated that 3gm of Ancef was given during surgery. Doctor said they would let me know if I should give the rocephen and I still have not been informed on whether to still give it or not. I will administer the 1600 Ancef at this time and continue to monitor patient. Pt is stable and in no distress at this time.
[2023-05-24] MEDS: albuterol 2.5 MG/3 ML nebule NEB PRN ×2 (11:35→19:21)
--- NOTE | 2023-05-24 11:36 | NUR ---
PATIENT HAS MET ALL CRITERIA FOR TRANSFER TO THE ORTHO FLOOR. VSS. DRESSINGS INTACT. BED LOW, CALL LIGHT PRESENT AND 2 RAILS UP. NURSE PRESENT TO ACCEPT CARE OF PATIENT AND REPORT HAS BEEN CALLED TO NURSE MARILEE. ALL QUESTIONS ANSWERED TO ACCEPTING NURSE.
--- NOTE | 2023-05-24 11:39 | NUR ---
notifed pharmacy that patient was taken to surgery before she was able to receive her antibiotic and morning meds. PT receieved 3 gm of Ancef. Pharmacy asked for me to talk to provider about what to do.
[2023-05-24] MEDS: ESCITALOPRAM OXALATE 5 MG TABLET PO SCH (11:59)
[2023-05-24] MEDS: liothyronine sod 5mcg tablet PO SCH (12:00)
[2023-05-24] MEDS: furosemide 20MG tablet PO SCH ×2 (12:01→20:16)
[2023-05-24] MEDS: metFORMIN 500mg tablet PO SCH (12:02)
[2023-05-24] MEDS: pregabalin 25mg capsule PO SCH ×2 (12:02→20:16)
[2023-05-24] MEDS: loratadine 10mg tablet PO SCH (12:03)
[2023-05-24] MEDS: atorvastatin 20mg tablet PO SCH (12:03)
[2023-05-24] MEDS: docusate sod 100mg capsule PO SCH ×2 (12:04→20:00)
[2023-05-24] MEDS: HYDROcodone/acetaminophen 10/325mg tab PO PRN ×2 (14:22→20:17)
[2023-05-24] MEDS: ceFAZolin/D5W- 1GM premix 50 ML IV SCH (16:40)
--- NOTE | 2023-05-24 18:12 | NUR ---
Problems reprioritized. Patient report given, questions answered & plan of care reviewed with ARPAN Jaffe.
--- NOTE | 2023-05-24 18:20 | NUR ---
Patient in room ORTHO 4022. I have received report from ARPAN Landa and had the opportunity to ask questions and assume patient care.
[2023-05-24] MEDS: enoxaparin 40mg/0.4ml syringe SUBCUT SCH (20:17)
[2023-05-25] VITALS (10 sets, daily range): BP systolic 128–144; BP diastolic 70–83; PULSE 68–93; RESP 12–20; TEMP 97.4–98.5; O2SAT 92–95
[2023-05-25] MEDS: ceFAZolin/D5W- 1GM premix 50 ML IV SCH ×3 (00:26→16:20)
[2023-05-25] MEDS: HYDROcodone/acetaminophen 10/325mg tab PO PRN ×3 (02:27→12:24)
[2023-05-25] MEDS: normal saline 1000ml 1,000 ML IV SCH ×2 (05:38→19:46)
[2023-05-25 06:12] LABS: BASOPHILS % (AUTO) 0 % (0-1); EOSINOPHILS % (AUTO) 0 % (0-6); HEMATOCRIT 28.4 % (35.0-45.0); HEMOGLOBIN 9.4 g/dl (12.0-16.0); LYMPHOCYTES # (AUTO) 1.2 X10'3 (1.1-4.8); LYMPHOCYTES % (AUTO) 10.2 % (21-51); MEAN CORPUSCULAR HEMOGLOBIN 30.5 PG (27.0-31.0); MEAN CORPUSCULAR HGB CONC 33.1 g/dL (33.0-36.5); MEAN CORPUSCULAR VOLUME 92.1 FL (78-98); MEAN PLATELET VOLUME 7.2 FL (7.4-10.4); NEUTROPHILS # (AUTO) 9.8 X10'3 (1.8-7.7); NEUTROPHILS % (AUTO) 81.8 % (42-75); PLATELET COUNT 396 X10'3 (140-440); RED BLOOD COUNT 3.08 X10'6 (4.20-5.60); RED CELL DISTRIBUTION WIDTH 14.1 % (11.5-14.5)
[2023-05-25 06:26] LABS: ALBUMIN 2.3 G/DL (3.4-5.0); ANION GAP 0 (8-16); BLOOD UREA NITROGEN 6 MG/DL (7-18); BUN/CREATININE RATIO 12.8 (10.0-20.0); CALCIUM 9.1 MG/DL (8.5-10.1); CHLORIDE 101 MMOL/L (99-107); CREATININE 0.47 MG/DL (0.40-0.90); GLUCOSE 150 MG/DL (70-104); POTASSIUM 3.5 MMOL/L (3.5-5.1); SODIUM 139 MMOL/L (135-145); TOTAL CARBON DIOXIDE 38.1 MMOL/L (24-32); eCRCL 122 ML/MIN; eGFR > 90 ML/MIN
--- NOTE | 2023-05-25 06:30 | NUR ---
Problems reprioritized. Patient report given, questions answered & plan of care reviewed with ARPAN Quinonez.
--- NOTE | 2023-05-25 06:45 | NUR ---
Patient in room ORTHO 4022. I have received report from Alannah and had the opportunity to ask questions and assume patient care.
[2023-05-25] MEDS: CefTRIAXone/D5W-Rocephin 1gm 50 ML IV SCH (07:56)
[2023-05-25] MEDS: docusate sod 100mg capsule PO SCH ×2 (07:58→19:40)
[2023-05-25] MEDS: lactulose 20gm/30ml cup PO SCH ×2 (07:58→19:40)
[2023-05-25] MEDS: loratadine 10mg tablet PO SCH (07:58)
[2023-05-25] MEDS: pregabalin 25mg capsule PO SCH ×2 (07:59→19:39)
[2023-05-25] MEDS: atorvastatin 20mg tablet PO SCH (07:59)
[2023-05-25] MEDS: furosemide 20MG tablet PO SCH ×2 (07:59→19:40)
[2023-05-25] MEDS: liothyronine sod 5mcg tablet PO SCH (08:00)
[2023-05-25] MEDS: ESCITALOPRAM OXALATE 5 MG TABLET PO SCH (08:25)
[2023-05-25] MEDS: albuterol 2.5 MG/3 ML nebule NEB PRN (09:06)
[2023-05-25] MEDS ORDERED: ipratropium/albuterol 3ml nebule NEB PRN (09:25)
--- NOTE | 2023-05-25 10:07 | NUR ---
IV ABX late, unavailable from pharmacy
--- NOTE | 2023-05-25 11:03 | NUR ---
patient had c/o chest pain when standing up to work with physical therapy. Vitals taken, all WNL, EKG was NSR. Patient felt relief when laying back down, was laughing/engaging in conversation appropriately. No further complaints. Called hospitalist resident to advise. No new orders received.
[2023-05-25] MEDS ORDERED: oxyCODONE/APAP 10/325mg tablet PO PRN (17:30)
[2023-05-25] MEDS: oxyCODONE/APAP 5-325mg tablet PO PRN ×2 (17:43→23:33)
--- NOTE | 2023-05-25 18:07 | NUR ---
Problems reprioritized. Patient report given, questions answered & plan of care reviewed with
--- NOTE | 2023-05-25 18:39 | NUR ---
Received report from Francesca ANTONY. Assumed care. Pt awake watching TV. No s/s of distress at this time.
[2023-05-25] MEDS: enoxaparin 40mg/0.4ml syringe SUBCUT SCH (19:40)
[2023-05-26] VITALS (9 sets, daily range): BP systolic 112–127; BP diastolic 59–83; PULSE 82–89; RESP 18–20; TEMP 97.1–99.5; O2SAT 92–96
--- NOTE | 2023-05-26 03:05 | NUR ---
VOLTMETER OPERATOR documentation: I have reviewed and agree with assessment performed and documented by CHELSI Fatima
[2023-05-26 06:07] LABS: BASOPHILS # (AUTO) 0.1 X10'3 (0-0.2); BASOPHILS % (AUTO) 0.5 % (0-1); EOSINOPHILS # (AUTO) 0.8 X10'3 (0-0.9); EOSINOPHILS % (AUTO) 5.8 % (0-6); HEMATOCRIT 29.5 % (35.0-45.0); HEMOGLOBIN 9.7 g/dl (12.0-16.0); LYMPHOCYTES # (AUTO) 2.2 X10'3 (1.1-4.8); LYMPHOCYTES % (AUTO) 16.8 % (21-51); MEAN CORPUSCULAR HEMOGLOBIN 30.1 PG (27.0-31.0); MEAN CORPUSCULAR HGB CONC 32.9 g/dL (33.0-36.5); MEAN CORPUSCULAR VOLUME 91.6 FL (78-98); MEAN PLATELET VOLUME 7.3 FL (7.4-10.4); MONOCYTES # (AUTO) 1.5 X10'3 (0-0.9); MONOCYTES % (AUTO) 11.1 % (2-12); NEUTROPHILS # (AUTO) 8.8 X10'3 (1.8-7.7); NEUTROPHILS % (AUTO) 65.8 % (42-75); PLATELET COUNT 484 X10'3 (140-440); RED BLOOD COUNT 3.22 X10'6 (4.20-5.60); RED CELL DISTRIBUTION WIDTH 13.9 % (11.5-14.5); WHITE BLOOD COUNT 13.3 X10'3 (4.5-11.0)
[2023-05-26 06:20] LABS: ALBUMIN 2.3 G/DL (3.4-5.0); ANION GAP 3 (8-16); BLOOD UREA NITROGEN 6 MG/DL (7-18); BUN/CREATININE RATIO 11.8 (10.0-20.0); CALCIUM 8.7 MG/DL (8.5-10.1); CHLORIDE 100 MMOL/L (99-107); CREATININE 0.51 MG/DL (0.40-0.90); GLUCOSE 149 MG/DL (70-104); SODIUM 142 MMOL/L (135-145); TOTAL CARBON DIOXIDE 38.6 MMOL/L (24-32); eCRCL 113 ML/MIN; eGFR > 90 ML/MIN
--- NOTE | 2023-05-26 06:45 | NUR ---
Patient in room ORTHO 4022. I have received report from Bozena and had the opportunity to ask questions and assume patient care.
[2023-05-26] MEDS ORDERED: potassium Cl 20 mEq SR tablet PO PRN (07:40)
[2023-05-26 07:54] LABS: NUCLEATED RED BLOOD CELLS 1 /100WBC (0-0); TOTAL CELLS COUNTED 100
[2023-05-26 07:59] LABS: ANISOCYTOSIS 1+; PLATELET ESTIMATE INCREASED
[2023-05-26] MEDS: lactulose 20gm/30ml cup PO SCH ×2 (08:00→20:00)
[2023-05-26] MEDS: docusate sod 100mg capsule PO SCH ×2 (08:00→20:00)
[2023-05-26] MEDS: CefTRIAXone/D5W-Rocephin 1gm 50 ML IV SCH (08:08)
[2023-05-26] MEDS: loratadine 10mg tablet PO SCH (08:10)
[2023-05-26] MEDS: pregabalin 25mg capsule PO SCH ×2 (08:12→20:47)
[2023-05-26] MEDS: ESCITALOPRAM OXALATE 5 MG TABLET PO SCH (08:12)
[2023-05-26] MEDS: furosemide 20MG tablet PO SCH ×2 (08:12→20:48)
[2023-05-26] MEDS: atorvastatin 20mg tablet PO SCH (08:12)
[2023-05-26 08:13] LABS: MAGNESIUM 1.9 MG/DL (1.5-2.4)
[2023-05-26] MEDS: oxyCODONE/APAP 5-325mg tablet PO PRN ×2 (08:13→17:13)
[2023-05-26] MEDS: potassium Cl 20 mEq SR tablet PO PRN ×3 (08:14→22:58)
[2023-05-26] MEDS: liothyronine sod 5mcg tablet PO SCH (08:18)
[2023-05-26] MEDS: normal saline 1000ml 1,000 ML IV SCH ×2 (10:09→18:30)
--- NOTE | 2023-05-26 18:13 | NUR ---
Problems reprioritized. Patient report given, questions answered & plan of care reviewed with Patricia.
[2023-05-26] MEDS: albuterol 2.5 MG/3 ML nebule NEB PRN (19:54)
[2023-05-26] MEDS: LORazepam 1 MG tablet PO PRN (20:08)
[2023-05-26] MEDS: morphine 4 MG/ML inj SYRINge IV PRN (20:15)
--- NOTE | 2023-05-26 20:30 | NUR ---
PATIENT COMPLAINED OF CHEST PAIN EKG WAS DONE NON STEMI, VITALS TAKEN BP 130/81 HR 93 RR 20 SATA 94% 4LNC CALLED DR. PEÑALOZA WITH ORDER TO DO STAT TROPONIN.
[2023-05-26] MEDS: enoxaparin 40mg/0.4ml syringe SUBCUT SCH (20:49)
[2023-05-27] MEDS: normal saline 1000ml 1,000 ML IV SCH (00:44)
[2023-05-27 06:00] VITALS: BP 139/82; PULSE 84; RESP 20; TEMP 98.5; O2SAT 93
[2023-05-27 06:10] LABS: BASOPHILS % (AUTO) 0.3 % (0-1); EOSINOPHILS # (AUTO) 0.7 X10'3 (0-0.9); EOSINOPHILS % (AUTO) 5.4 % (0-6); HEMATOCRIT 30.1 % (35.0-45.0); HEMOGLOBIN 9.9 g/dl (12.0-16.0); LYMPHOCYTES # (AUTO) 2.1 X10'3 (1.1-4.8); LYMPHOCYTES % (AUTO) 15.5 % (21-51); MEAN CORPUSCULAR HEMOGLOBIN 30.3 PG (27.0-31.0); MEAN PLATELET VOLUME 6.7 FL (7.4-10.4); MONOCYTES # (AUTO) 1.4 X10'3 (0-0.9); MONOCYTES % (AUTO) 10.8 % (2-12); NEUTROPHILS # (AUTO) 9.2 X10'3 (1.8-7.7); PLATELET COUNT 520 X10'3 (140-440); RED BLOOD COUNT 3.27 X10'6 (4.20-5.60); RED CELL DISTRIBUTION WIDTH 14.1 % (11.5-14.5); WHITE BLOOD COUNT 13.4 X10'3 (4.5-11.0)
[2023-05-27 06:38] LABS: ALBUMIN 2.3 G/DL (3.4-5.0); ANION GAP 3 (8-16); BLOOD UREA NITROGEN 8 MG/DL (7-18); BUN/CREATININE RATIO 15.7 (10.0-20.0); CALCIUM 9.2 MG/DL (8.5-10.1); CHLORIDE 100 MMOL/L (99-107); CREATININE 0.51 MG/DL (0.40-0.90); GLUCOSE 146 MG/DL (70-104); MAGNESIUM 2.1 MG/DL (1.5-2.4); POTASSIUM 4.1 MMOL/L (3.5-5.1); SODIUM 138 MMOL/L (135-145); TOTAL CARBON DIOXIDE 35.2 MMOL/L (24-32); eCRCL 113 ML/MIN; eGFR > 90 ML/MIN
--- NOTE | 2023-05-27 06:50 | NUR ---
Problems reprioritized. Patient report given, questions answered & plan of care reviewed with TINO ANTONY.
[2023-05-27 06:55] LABS: TOTAL CELLS COUNTED 100
[2023-05-27 06:56] LABS: PLATELET ESTIMATE INCREASED
[2023-05-27 07:26] VITALS: PULSE 89; RESP 18; O2SAT 92
[2023-05-27] MEDS: lactulose 20gm/30ml cup PO SCH (08:00)
[2023-05-27] MEDS: docusate sod 100mg capsule PO SCH (08:00)
[2023-05-27] MEDS: CefTRIAXone/D5W-Rocephin 1gm 50 ML IV SCH (08:43)
[2023-05-27] MEDS: loratadine 10mg tablet PO SCH (08:46)
[2023-05-27 08:47] VITALS: RESP 20; O2SAT 93
[2023-05-27] MEDS: liothyronine sod 5mcg tablet PO SCH (08:47)
[2023-05-27] MEDS: pregabalin 25mg capsule PO SCH (08:47)
[2023-05-27] MEDS: atorvastatin 20mg tablet PO SCH (08:47)
[2023-05-27] MEDS: furosemide 20MG tablet PO SCH (08:47)
[2023-05-27 08:48] VITALS: BP 131/71; PULSE 87; RESP 10; TEMP 99.1; O2SAT 91
[2023-05-27] MEDS: ESCITALOPRAM OXALATE 5 MG TABLET PO SCH (08:48)
[2023-05-27] MEDS: oxyCODONE/APAP 5-325mg tablet PO PRN (08:48)
[2023-05-27 09:00] VITALS: RESP 10; O2SAT 91
[2023-05-27 09:48] VITALS: RESP 24
--- NOTE | 2023-05-27 11:01 | NUR ---
Problems reprioritized. Patient report given, questions answered & plan of care reviewed with Joanne at [facility].
== END 2023-05-27 11:42 | DRG 313 ==
LOC: ER 10:42 → ED HOLD 14:30 → ORTHO 4S 05-23 08:00
PROVIDERS: ADMIT Internal Medicine; ATTEND Internal Medicine
PROC: 5A09357 Assistance with Respiratory Ventilation, Less than 24 Consecutive Hours, Continuous Positive Airway Pressure (ICD-10-PCS; 2023-05-22)
PROC: 0QSG06Z Reposition Right Tibia with Intramedullary Internal Fixation Device, Open Approach (ICD-10-PCS; 2023-05-24)
PROC: 0QSJ06Z Reposition Right Fibula with Intramedullary Internal Fixation Device, Open Approach (ICD-10-PCS; principal; 2023-05-24 08:02)
DX: S82.831A Other fracture of upper and lower end of right fibula, initial encounter for closed fracture (principal); J96.21 Acute and chronic respiratory failure with hypoxia; D62 Acute posthemorrhagic anemia; F29 Unspecified psychosis not due to a substance or known physiological condition; N39.0 Urinary tract infection, site not specified; B96.20 Unspecified Escherichia coli [E. coli] as the cause of diseases classified elsewhere; E03.9 Hypothyroidism, unspecified; F41.0 Panic disorder [episodic paroxysmal anxiety]; G43.909 Migraine, unspecified, not intractable, without status migrainosus; S82.201A Unspecified fracture of shaft of right tibia, initial encounter for closed fracture; W06.XXXA Fall from bed, initial encounter; G89.29 Other chronic pain; I25.10 Atherosclerotic heart disease of native coronary artery without angina pectoris; M54.9 Dorsalgia, unspecified; Z20.822 Contact with and (suspected) exposure to COVID-19; J96.22 Acute and chronic respiratory failure with hypercapnia; K21.9 Gastro-esophageal reflux disease without esophagitis; E78.5 Hyperlipidemia, unspecified; F31.9 Bipolar disorder, unspecified; J43.9 Emphysema, unspecified; Z79.899 Other long term (current) drug therapy; Z88.1 Allergy status to other antibiotic agents; Z88.2 Allergy status to sulfonamides; Z88.8 Allergy status to other drugs, medicaments and biological substances; Y93.89 Activity, other specified; Y92.89 Other specified places as the place of occurrence of the external cause; Y99.8 Other external cause status
CPT/HCPCS: 36415; 36600; 70450; 71045; 72125; 73590; 76000; 80048; 80053; 80305; 81001; 82140; 82803; 82948; 83036; 83735; 83880; 84484; 85007; 85018; 85025; 85610; 85730; 87077; 87081; 87088; 87186; 87811; 93005; 94640; 94660; 94760; 97110; 97161; 97530; 97535; 99285; A4314; A4333; A4618; A5200; A6222; A6449; A7000; C1713; C1769; G0378; J0690; J0696; J1650; J1815; J2250; J2270; J2795; J3010; J3490; J7030; J7120

== ENCOUNTER 2023-11-30 00:39 | Emergency (ER) | payer MEDICAID ==
[~2023-11-30] VITALS: Ht 167.6 cm; Wt 94.8 kg
[~2023-11-30 00:39] MED LIST changes: +ACET325T55 PO; -ATOR40TA72 PO; +BUPR1FIL17 SL; +DIPH-522 PO; -ESCI20TA39 PO; -FLUT1BLS16 PO; +FLUT1BLS4 PO; -IBUP-1986 PO; +KETO15CR2 TOP; -LIOT25TA12 PO; -LORA10TA7 PO; -NITR0.4T48 SL; -OXYC1TAB17 PO; -PRED20TA PO; +SUMA50TA17 PO
[2023-11-30 00:45] VITALS: TEMP 98
[2023-11-30 01:22] LABS: BASOPHILS % (AUTO) 0.4 % (0-1); EOSINOPHILS # (AUTO) 1.2 X10'3 (0-0.9); EOSINOPHILS % (AUTO) 12.9 % (0-6); HEMATOCRIT 33.9 % (35.0-45.0); HEMOGLOBIN 11.3 g/dl (12.0-16.0); LYMPHOCYTES # (AUTO) 2.4 X10'3 (1.1-4.8); LYMPHOCYTES % (AUTO) 25.5 % (21-51); MEAN CORPUSCULAR HEMOGLOBIN 30.3 PG (27.0-31.0); MEAN CORPUSCULAR HGB CONC 33.2 g/dL (33.0-36.5); MEAN CORPUSCULAR VOLUME 91.1 FL (78-98); MEAN PLATELET VOLUME 7.2 FL (7.4-10.4); MONOCYTES # (AUTO) 0.6 X10'3 (0-0.9); MONOCYTES % (AUTO) 6.4 % (2-12); NEUTROPHILS # (AUTO) 5.2 X10'3 (1.8-7.7); NEUTROPHILS % (AUTO) 54.8 % (42-75); PLATELET COUNT 318 X10'3 (140-440); RED BLOOD COUNT 3.73 X10'6 (4.20-5.60); RED CELL DISTRIBUTION WIDTH 16.6 % (11.5-14.5); WHITE BLOOD COUNT 9.5 X10'3 (4.5-11.0)
[2023-11-30 01:42] LABS: ALBUMIN 3.5 G/DL (3.4-5.0); ANION GAP 7 (8-16); BLOOD UREA NITROGEN 18 MG/DL (7-18); BUN/CREATININE RATIO 27.3 (10.0-20.0); CALCIUM 9.1 MG/DL (8.5-10.1); CHLORIDE 100 MMOL/L (99-107); CREATININE 0.66 MG/DL (0.40-0.90); GLUCOSE 162 MG/DL (70-104); POTASSIUM 3.5 MMOL/L (3.5-5.1); PRO BRAIN NATRIURETIC PEPTIDE 34 PG/ML (0-125); SODIUM 141 MMOL/L (135-145); TOTAL CARBON DIOXIDE 34.3 MMOL/L (24-32); eCRCL 84 ML/MIN; eGFR > 90 ML/MIN
[2023-11-30 02:12] VITALS: PULSE 88; RESP 16; O2SAT 96
[2023-11-30] MEDS: ipratropium/albuterol 3ml nebule NEB ONE (02:12)
[2023-11-30] MEDS: methylPREDNISolone sod succ 125mg/2ml vial IV ONE (02:13)
[2023-11-30 02:20] VITALS: PULSE 93; RESP 22; O2SAT 96
[2023-11-30] MEDS: CefTRIAXone 2gm/D5W 50ml BAG 50 ML IV SCH (03:16)
[2023-11-30] MEDS ORDERED: iohexol 350MG/ML 100ml bottle IV ONE (04:02)
[2023-11-30] MEDS: azithromycin/NS 500mg/250ml 250 ML IV ONE (04:04)
[2023-11-30 05:07] VITALS: BP 99/62; PULSE 91; RESP 14; O2SAT 95
[2023-11-30] MEDS ORDERED: PRED20TA PO (05:36)
[2023-11-30] MEDS ORDERED: ALBU8HFA PO (05:36)
[2023-11-30] MEDS ORDERED: AMOX-117 PO (05:36)
== END 2023-11-30 05:56 | disposition home or self-care (01) ==
LOC: ER 00:40
DX: J44.1 Chronic obstructive pulmonary disease with (acute) exacerbation (principal); G43.909 Migraine, unspecified, not intractable, without status migrainosus; K21.9 Gastro-esophageal reflux disease without esophagitis; E11.9 Type 2 diabetes mellitus without complications; M19.90 Unspecified osteoarthritis, unspecified site; J18.9 Pneumonia, unspecified organism; Z88.2 Allergy status to sulfonamides; Z88.1 Allergy status to other antibiotic agents; Z88.8 Allergy status to other drugs, medicaments and biological substances; Z79.2 Long term (current) use of antibiotics; Z79.899 Other long term (current) drug therapy
CPT/HCPCS: 36415; 71045; 71275; 80048; 83880; 84484; 85025; 85379; 87040; 93005; 94640; 96365; 96367; 96375; 99285; J0456; J0696; J2930; J3490; Q9967; 94760

== ENCOUNTER 2024-03-09 14:00 | Emergency (ER) | payer MEDICAID ==
[~2024-03-09] VITALS: Ht 167.6 cm; Wt 100.0 kg
[~2024-03-09 14:00] MED LIST changes: -DIPH-522 PO; +[UNRECOGNIZED DRUG - CODE] PO
[2024-03-09] MEDS: HYDROcodone/acetaminophen 10/325mg tab PO ONE (15:18)
[2024-03-09] MEDS: ketorolac tromethamine 15mg/ml inj. IM ONE (17:34)
[2024-03-09 17:55] VITALS: BP 138/79; PULSE 80; RESP 16; TEMP 98; O2SAT 95
== END 2024-03-09 18:21 | disposition home or self-care (01) ==
LOC: ER 14:01
DX: S92.331A Displaced fracture of third metatarsal bone, right foot, initial encounter for closed fracture (principal); G43.909 Migraine, unspecified, not intractable, without status migrainosus; J45.909 Unspecified asthma, uncomplicated; J44.9 Chronic obstructive pulmonary disease, unspecified; K21.9 Gastro-esophageal reflux disease without esophagitis; E11.9 Type 2 diabetes mellitus without complications; M19.90 Unspecified osteoarthritis, unspecified site; G89.29 Other chronic pain; M54.9 Dorsalgia, unspecified; F32.A Depression, unspecified; Z88.2 Allergy status to sulfonamides; Z88.1 Allergy status to other antibiotic agents; Z88.8 Allergy status to other drugs, medicaments and biological substances; Z79.899 Other long term (current) drug therapy; Z79.84 Long term (current) use of oral hypoglycemic drugs; W19.XXXA Unspecified fall, initial encounter; Y93.89 Activity, other specified; Y92.89 Other specified places as the place of occurrence of the external cause; Y99.8 Other external cause status
CPT/HCPCS: 73590; 73630; 96372; 99284; J1885; L4360

== ENCOUNTER 2024-05-04 16:24 | Emergency (ER) | payer MEDICAID ==
[~2024-05-04] VITALS: Ht 170.2 cm; Wt 109.5 kg
[2024-05-04 16:34] VITALS: BP 138/85; PULSE 95; O2SAT 98
[2024-05-04 19:56] VITALS: RESP 14
[2024-05-04] MEDS: HYDROcodone/acetaminophen 5mg/325mg tablet PO ONE (19:56)
[2024-05-04] MEDS ORDERED: ACET-2 PO (20:13)
[2024-05-04 20:40] VITALS: TEMP 97.1
== END 2024-05-04 20:49 | disposition home or self-care (01) ==
LOC: ER 16:24
DX: S82.192A Other fracture of upper end of left tibia, initial encounter for closed fracture (principal); G43.909 Migraine, unspecified, not intractable, without status migrainosus; J45.909 Unspecified asthma, uncomplicated; J44.9 Chronic obstructive pulmonary disease, unspecified; K21.9 Gastro-esophageal reflux disease without esophagitis; M19.90 Unspecified osteoarthritis, unspecified site; G89.29 Other chronic pain; M54.9 Dorsalgia, unspecified; F41.9 Anxiety disorder, unspecified; F32.A Depression, unspecified; F41.0 Panic disorder [episodic paroxysmal anxiety]; F28 Other psychotic disorder not due to a substance or known physiological condition; Z88.2 Allergy status to sulfonamides; Z88.1 Allergy status to other antibiotic agents; Z88.8 Allergy status to other drugs, medicaments and biological substances; Z79.899 Other long term (current) drug therapy; Z79.51 Long term (current) use of inhaled steroids; Z79.84 Long term (current) use of oral hypoglycemic drugs; Z86.73 Personal history of transient ischemic attack (TIA), and cerebral infarction without residual deficits; Z98.890 Other specified postprocedural states; W18.39XA Other fall on same level, initial encounter; Y93.89 Activity, other specified; Y92.89 Other specified places as the place of occurrence of the external cause; Y99.8 Other external cause status
CPT/HCPCS: 29505; 73590; 99283

== ENCOUNTER 2024-05-22 19:17 | Emergency (ER) | payer MEDICAID ==
[~2024-05-22] VITALS: Ht 170.2 cm; Wt 118.2 kg
[~2024-05-22 19:17] MED LIST changes: +ACET-2 PO
[2024-05-23 00:31] VITALS: BP 119/68; PULSE 77; RESP 18; TEMP 98.9; O2SAT 95
== END 2024-05-23 00:32 | disposition home or self-care (01) ==
LOC: ER 19:18
DX: M79.671 Pain in right foot (principal); M79.672 Pain in left foot; J44.9 Chronic obstructive pulmonary disease, unspecified; E11.9 Type 2 diabetes mellitus without complications; K21.9 Gastro-esophageal reflux disease without esophagitis; J43.9 Emphysema, unspecified; F31.9 Bipolar disorder, unspecified; Z88.1 Allergy status to other antibiotic agents; Z88.2 Allergy status to sulfonamides; Z88.3 Allergy status to other anti-infective agents; Z88.5 Allergy status to narcotic agent; Z88.6 Allergy status to analgesic agent; Z88.8 Allergy status to other drugs, medicaments and biological substances
CPT/HCPCS: 73700; 82948; 99284

== ENCOUNTER 2024-06-18 13:40 | Emergency (ER) | payer MEDICAID ==
[~2024-06-18] VITALS: Ht 167.6 cm; Wt 100.3 kg
[~2024-06-18 13:40] MED LIST changes: -ACET-2 PO
[2024-06-18 13:44] VITALS: BP 121/83; PULSE 85; O2SAT 88
[2024-06-18 15:12] VITALS: RESP 16
[2024-06-18] MEDS: ketorolac trometh 15mg/ml vial 15 MG/ML ML IM ONE (15:12)
[2024-06-18 15:46] VITALS: TEMP 97.6
[2024-06-18] MEDS ORDERED: NAPR-56 PO (15:49)
== END 2024-06-18 15:47 | disposition home or self-care (01) ==
LOC: ER 13:41
DX: M25.561 Pain in right knee (principal); M79.671 Pain in right foot; E11.9 Type 2 diabetes mellitus without complications; G89.29 Other chronic pain; J43.9 Emphysema, unspecified; K21.9 Gastro-esophageal reflux disease without esophagitis; M19.90 Unspecified osteoarthritis, unspecified site; F31.9 Bipolar disorder, unspecified; Z88.2 Allergy status to sulfonamides; Z88.3 Allergy status to other anti-infective agents; Z88.8 Allergy status to other drugs, medicaments and biological substances; Z79.899 Other long term (current) drug therapy; Z86.73 Personal history of transient ischemic attack (TIA), and cerebral infarction without residual deficits
CPT/HCPCS: 73564; 73630; 96372; 99284; J1885; A4615; A6449

== ENCOUNTER 2024-08-15 17:24 | Inpatient (IN) | payer MEDICAID ==
[~2024-08-15] VITALS: Ht 152.4 cm; Wt 109.0 kg
[2024-08-15 21:29] LABS: BASOPHILS % (AUTO) 0.2 % (0-1); EOSINOPHILS % (AUTO) 0.2 % (0-6); HEMATOCRIT 32.1 % (35.0-45.0); HEMOGLOBIN 10.8 g/dl (12.0-16.0); LYMPHOCYTES # (AUTO) 1.5 X10'3 (1.1-4.8); LYMPHOCYTES % (AUTO) 11.4 % (21-51); MEAN CORPUSCULAR HGB CONC 33.6 g/dL (33.0-36.5); MEAN CORPUSCULAR VOLUME 92.3 FL (78-98); MEAN PLATELET VOLUME 7.1 FL (7.4-10.4); MONOCYTES # (AUTO) 1.2 X10'3 (0-0.9); MONOCYTES % (AUTO) 9.3 % (2-12); NEUTROPHILS # (AUTO) 10.1 X10'3 (1.8-7.7); NEUTROPHILS % (AUTO) 78.9 % (42-75); PLATELET COUNT 366 X10'3 (140-440); RED BLOOD COUNT 3.48 X10'6 (4.20-5.60); WHITE BLOOD COUNT 12.8 X10'3 (4.5-11.0)
[2024-08-15 21:43] LABS: ALANINE AMINOTRANSFERASE 23 U/L (12-78); ALBUMIN 3.3 G/DL (3.4-5.0); ALBUMIN/GLOBULIN RATIO 0.6 (1.1-1.5); ALKALINE PHOSPHATASE 115 IU/L (46-116); ANION GAP 9 (8-16); ASPARTATE AMINO TRANSFERASE 18 U/L (10-37); BILIRUBIN,TOTAL 0.9 MG/DL (0.1-1.0); BLOOD UREA NITROGEN 16 MG/DL (7-18); CALCIUM 9.1 MG/DL (8.5-10.1); CHLORIDE 93 MMOL/L (99-107); CREATININE 1.14 MG/DL (0.40-0.90); GLUCOSE 126 MG/DL (70-104); POTASSIUM 3.1 MMOL/L (3.5-5.1); SODIUM 134 MMOL/L (135-145); TOTAL CARBON DIOXIDE 31.6 MMOL/L (24-32); TOTAL PROTEIN 8.4 G/DL (6.4-8.2); eCRCL 37 ML/MIN; eGFR 48 ML/MIN
[2024-08-15] MEDS: acetaminophen 325mg tablet PO ONE (21:44)
[2024-08-15 21:52] LABS: PRO BRAIN NATRIURETIC PEPTIDE 131 PG/ML (0-125)
[2024-08-15] MEDS: CefTRIAXone 2gm/D5W 50ml BAG 50 ML IV ONE (23:59)
[2024-08-16] MEDS: azithromycin/NS 500mg/250ml 250 ML IV ONE (00:23)
[2024-08-16] MEDS ORDERED: potassium Cl 20 mEq SR tablet PO PRN (00:25)
[2024-08-16] MEDS ORDERED: magnesium hydroxide 30ml (MOM) UD suspension PO PRN (00:25)
[2024-08-16] MEDS ORDERED: magnesium sulf-water 2g/50mL 50 ML IV PRN (00:25)
[2024-08-16] MEDS ORDERED: potassium Cl 40MEQ/1/2NS 520ml 520 ML IV PRN (00:25)
[2024-08-16] MEDS ORDERED: magnesium sulf-water 4G/100mL 100 ML IV PRN (00:25)
[2024-08-16] MEDS: normal saline 1000ml 1,000 ML IV SCH (00:53)
[2024-08-16] MEDS ORDERED: glucagon, human recombinant 1mg kit SUBCUT PRN (01:35)
[2024-08-16] MEDS ORDERED: DEXTROSE 15 GM of carb/4 tabs (each vial/BOTTLE has 4 tablets) PO PRN ×2 (01:35)
[2024-08-16] MEDS ORDERED: dextrose 50%-water 50ml dispensing syringe IV PRN ×2 (01:35)
[2024-08-16] MEDS: ondansetron/PF 4mg/2ml inj IV PRN (05:42)
[2024-08-16] MEDS: morphine 2 MG/ML inj. syringe IV ONE (05:42)
[2024-08-16] MEDS: INSULIN LISPRO 100 UNIT/ML INSULN.PEN MULTI-DOSE SQ SCH (07:00)
[2024-08-16 07:52] LABS: BILIRUBIN,URINE NEGATIVE (Neg); CLARITY,URINE CLEAR (Clear); COLOR,URINE YELLOW (Yellow); GLUCOSE, URINE NEGATIVE (Neg); KETONES,URINE TRACE mg/dl (Neg); LEUKOCYTE ESTERASE ,URINE NEGATIVE (Neg); NITRITES, URINE NEGATIVE (Neg); OCCULT BLOOD,URINE SMALL (Neg); PH,URINE 6.5 (4.8-8.0); PROTEIN,URINE 30 mg/dl (Neg); UROBILINOGEN,URINE 0.2 E.U/dL (0.2-1.0)
[2024-08-16 07:55] LABS: URINE HCG NEGATIVE (NEG)
[2024-08-16] MEDS: acetaminophen 325mg tablet PO PRN (07:55)
[2024-08-16 07:58] LABS: UA COLLECTION TYPE VOIDED
[2024-08-16 08:01] LABS: MAGNESIUM 2.6 MG/DL (1.5-2.4); POTASSIUM 3.1 MMOL/L (3.5-5.1)
[2024-08-16] MEDS: CefTRIAXone/D5W-Rocephin 1gm 50 ML IV SCH (08:11)
[2024-08-16] MEDS: normal saline 1000ml 1,000 ML IV ONE ×2 (08:12→08:58)
[2024-08-16] MEDS: potassium Cl 20 mEq SR tablet PO PRN (08:12)
[2024-08-16] MEDS: azithromycin/NS 500mg/250ml 250 ML IV SCH (08:12)
[2024-08-16] MEDS: pregabalin 25mg capsule PO SCH (08:12)
[2024-08-16 08:13] LABS: BACTERIA,URINE NONE SEEN /HPF (Neg); MUCUS STRANDS NONE SEEN /LPF (Neg); RBC,URINE 0-2 /HPF (0-2); SQUAMOUS EPITHELIAL CELL,UR FEW /LPF (FEW); WBC,URINE 0-4 /HPF (0-4)
[2024-08-16] MEDS: docusate sod 100mg capsule PO SCH (08:13)
[2024-08-16] MEDS: K and/or MAG REPLACEMENT MC SCH (08:13)
[2024-08-16] MEDS: heparin, porcine 5000 units/ml vial SQ SCH (08:13)
[2024-08-16 08:43] LABS: HEMOGLOBIN A1C 5.8 % (4.5-6.2)
[2024-08-16] MEDS ORDERED: morphine 2 MG/ML inj. syringe IV PRN ×2 (09:20)
[2024-08-16 13:00] VITALS: BP 117/73; PULSE 84; RESP 20; TEMP 97.5; O2SAT 95
[2024-08-16 15:00] VITALS: BP 140/86; PULSE 97; RESP 16; TEMP 97.9; O2SAT 93
[2024-08-16 18:00] VITALS: BP 136/76; PULSE 86; RESP 22; TEMP 97.7; O2SAT 96
[2024-08-16 20:00] VITALS: RESP 22; O2SAT 96
[2024-08-16 22:00] VITALS: BP 144/75; PULSE 77; RESP 21; TEMP 97.5; O2SAT 98
[2024-08-17] VITALS (11 sets, daily range): BP systolic 112–128; BP diastolic 57–76; PULSE 60–84; RESP 12–20; TEMP 96.7–98.2; O2SAT 96–100
[2024-08-17] MEDS: QUEtiapine 25mg tablet PO PRN (03:52)
[2024-08-17 06:35] LABS: BASOPHILS % (AUTO) 0.3 % (0-1); EOSINOPHILS # (AUTO) 0.1 X10'3 (0-0.9); EOSINOPHILS % (AUTO) 1.3 % (0-6); HEMATOCRIT 27.8 % (35.0-45.0); HEMOGLOBIN 9.4 g/dl (12.0-16.0); LYMPHOCYTES % (AUTO) 14.8 % (21-51); MEAN CORPUSCULAR HEMOGLOBIN 31.4 PG (27.0-31.0); MEAN CORPUSCULAR HGB CONC 33.9 g/dL (33.0-36.5); MEAN CORPUSCULAR VOLUME 92.7 FL (78-98); MEAN PLATELET VOLUME 7.3 FL (7.4-10.4); MONOCYTES # (AUTO) 0.8 X10'3 (0-0.9); MONOCYTES % (AUTO) 11.7 % (2-12); NEUTROPHILS # (AUTO) 4.9 X10'3 (1.8-7.7); NEUTROPHILS % (AUTO) 71.9 % (42-75); PLATELET COUNT 290 X10'3 (140-440); RED BLOOD COUNT 2.99 X10'6 (4.20-5.60); RED CELL DISTRIBUTION WIDTH 14.2 % (11.5-14.5); WHITE BLOOD COUNT 6.8 X10'3 (4.5-11.0)
[2024-08-17 06:52] LABS: ALANINE AMINOTRANSFERASE 28 U/L (12-78); ALBUMIN 2.3 G/DL (3.4-5.0); ALBUMIN/GLOBULIN RATIO 0.5 (1.1-1.5); ALKALINE PHOSPHATASE 86 IU/L (46-116); ANION GAP 7 (8-16); ASPARTATE AMINO TRANSFERASE 24 U/L (10-37); BILIRUBIN,TOTAL 0.3 MG/DL (0.1-1.0); BLOOD UREA NITROGEN 10 MG/DL (7-18); BUN/CREATININE RATIO 14.1 (10.0-20.0); CALCIUM 8.5 MG/DL (8.5-10.1); CHLORIDE 104 MMOL/L (99-107); CREATININE 0.71 MG/DL (0.40-0.90); GLUCOSE 136 MG/DL (70-104); MAGNESIUM 2.2 MG/DL (1.5-2.4); POTASSIUM 3.3 MMOL/L (3.5-5.1); SODIUM 139 MMOL/L (135-145); TOTAL CARBON DIOXIDE 28.2 MMOL/L (24-32); TOTAL PROTEIN 6.8 G/DL (6.4-8.2); eCRCL 59 ML/MIN; eGFR 83 ML/MIN
[2024-08-18] VITALS (7 sets, daily range): BP systolic 120–122; BP diastolic 66–73; PULSE 62–74; RESP 13–20; TEMP 97–97.8; O2SAT 95–99
[2024-08-18 07:16] LABS: BASOPHILS % (AUTO) 0.7 % (0-1); EOSINOPHILS # (AUTO) 0.4 X10'3 (0-0.9); EOSINOPHILS % (AUTO) 7.2 % (0-6); HEMATOCRIT 30.9 % (35.0-45.0); HEMOGLOBIN 10.3 g/dl (12.0-16.0); LYMPHOCYTES # (AUTO) 1.1 X10'3 (1.1-4.8); LYMPHOCYTES % (AUTO) 18.5 % (21-51); MEAN CORPUSCULAR HEMOGLOBIN 31.3 PG (27.0-31.0); MEAN CORPUSCULAR HGB CONC 33.4 g/dL (33.0-36.5); MEAN CORPUSCULAR VOLUME 93.7 FL (78-98); MEAN PLATELET VOLUME 7.7 FL (7.4-10.4); MONOCYTES # (AUTO) 0.8 X10'3 (0-0.9); MONOCYTES % (AUTO) 13.6 % (2-12); NEUTROPHILS # (AUTO) 3.6 X10'3 (1.8-7.7); PLATELET COUNT 376 X10'3 (140-440); RED CELL DISTRIBUTION WIDTH 14.5 % (11.5-14.5)
[2024-08-18 07:46] LABS: ALANINE AMINOTRANSFERASE 31 U/L (12-78); ALBUMIN 2.3 G/DL (3.4-5.0); ALBUMIN/GLOBULIN RATIO 0.5 (1.1-1.5); ALKALINE PHOSPHATASE 88 IU/L (46-116); ANION GAP 8 (8-16); ASPARTATE AMINO TRANSFERASE 25 U/L (10-37); BILIRUBIN,TOTAL 0.2 MG/DL (0.1-1.0); BLOOD UREA NITROGEN 11 MG/DL (7-18); BUN/CREATININE RATIO 16.4 (10.0-20.0); CALCIUM 8.9 MG/DL (8.5-10.1); CHLORIDE 108 MMOL/L (99-107); CREATININE 0.67 MG/DL (0.40-0.90); GLUCOSE 109 MG/DL (70-104); MAGNESIUM 2.5 MG/DL (1.5-2.4); POTASSIUM 4.2 MMOL/L (3.5-5.1); SODIUM 143 MMOL/L (135-145); TOTAL CARBON DIOXIDE 27.5 MMOL/L (24-32); TOTAL PROTEIN 7.3 G/DL (6.4-8.2); eCRCL 63 ML/MIN; eGFR 89 ML/MIN
[2024-08-18] MEDS: albuterol 2.5 MG/3 ML nebule NEB PRN (08:18)
[2024-08-18] MEDS: acetaminophen 325mg tablet PO PRN (11:03)
[2024-08-18] MEDS ORDERED: LEVO-65 PO (15:06)
[2024-08-19] MEDS ORDERED: azithromycin 250mg tablet PO SCH (08:00)
== END 2024-08-18 17:42 | disposition home or self-care (01) | DRG 52 ==
LOC: ER 17:25 → ED HOLD 08-16 00:28 → PCU 3S 08-16 12:19
PROVIDERS: ADMIT Internal Medicine Critical Care Medicine; ATTEND Nurse Practitioner Family
DX: G93.49 Other encephalopathy (principal); J18.9 Pneumonia, unspecified organism; J96.10 Chronic respiratory failure, unspecified whether with hypoxia or hypercapnia; N17.9 Acute kidney failure, unspecified; E11.42 Type 2 diabetes mellitus with diabetic polyneuropathy; Z99.81 Dependence on supplemental oxygen; J44.0 Chronic obstructive pulmonary disease with (acute) lower respiratory infection; D63.8 Anemia in other chronic diseases classified elsewhere; G89.29 Other chronic pain; J43.9 Emphysema, unspecified; Z20.822 Contact with and (suspected) exposure to COVID-19; M47.812 Spondylosis without myelopathy or radiculopathy, cervical region; F31.9 Bipolar disorder, unspecified; E87.6 Hypokalemia; G43.909 Migraine, unspecified, not intractable, without status migrainosus; K21.9 Gastro-esophageal reflux disease without esophagitis; M54.9 Dorsalgia, unspecified; F41.9 Anxiety disorder, unspecified; Z86.73 Personal history of transient ischemic attack (TIA), and cerebral infarction without residual deficits; Z87.891 Personal history of nicotine dependence; Z79.84 Long term (current) use of oral hypoglycemic drugs; Z79.899 Other long term (current) drug therapy
CPT/HCPCS: 36415; 70450; 70551; 71045; 72125; 80053; 81001; 81025; 82948; 83036; 83605; 83735; 83880; 84132; 84145; 84484; 85025; 87040; 87081; 87502; 87503; 87811; 92508; 92616; 93005; 94640; 94760; 97161; 97530; 99285; A4615; G0378; J0456; J0696; J1644; J1815; J2270; J2405; J7030

== ENCOUNTER 2024-10-15 10:35 | Emergency (ER) | payer MEDICAID ==
[~2024-10-15] VITALS: Ht 170.2 cm; Wt 100.0 kg
[~2024-10-15 10:35] MED LIST changes: -BUPR1FIL17 SL; -FLUT1BLS4 PO; -[UNRECOGNIZED DRUG - CODE] PO
[2024-10-15 11:02] VITALS: BP 92/47; PULSE 68; O2SAT 92
[2024-10-15] MEDS: HYDROcodone/acetaminophen 5mg/325mg tablet PO ONE (13:28)
[2024-10-15 13:29] VITALS: RESP 16
[2024-10-15] MEDS: ketorolac trometh 30MG/ML vial 30 MG/ML VIAL IM ONE (13:29)
[2024-10-15] MEDS ORDERED: LIDO700A32 TOP (14:05)
[2024-10-15 14:10] VITALS: TEMP 96.1
== END 2024-10-15 14:12 | disposition home or self-care (01) ==
LOC: ER 10:36
DX: S80.02XA Contusion of left knee, initial encounter (principal); E11.9 Type 2 diabetes mellitus without complications; F31.9 Bipolar disorder, unspecified; J43.9 Emphysema, unspecified; K21.9 Gastro-esophageal reflux disease without esophagitis; M19.90 Unspecified osteoarthritis, unspecified site; Z86.73 Personal history of transient ischemic attack (TIA), and cerebral infarction without residual deficits; Z87.891 Personal history of nicotine dependence; Z88.2 Allergy status to sulfonamides; Z88.1 Allergy status to other antibiotic agents; Z88.8 Allergy status to other drugs, medicaments and biological substances; W19.XXXA Unspecified fall, initial encounter; Y93.89 Activity, other specified; Y92.89 Other specified places as the place of occurrence of the external cause; Y99.8 Other external cause status
CPT/HCPCS: 73564; 73700; 96372; 99285; J1885

== ENCOUNTER 2024-10-18 18:29 | Emergency (ER) | payer MEDICAID ==
[~2024-10-18] VITALS: Ht 170.2 cm; Wt 98.0 kg
[~2024-10-18 18:29] MED LIST changes: +LIDO700A32 TOP
[2024-10-18 19:35] LABS: BASOPHILS % (AUTO) 0.3 % (0-1); EOSINOPHILS # (AUTO) 0.9 X10'3 (0-0.9); EOSINOPHILS % (AUTO) 11.4 % (0-6); HEMATOCRIT 30.2 % (35.0-45.0); HEMOGLOBIN 9.9 g/dl (12.0-16.0); LYMPHOCYTES # (AUTO) 1.9 X10'3 (1.1-4.8); LYMPHOCYTES % (AUTO) 25.2 % (21-51); MEAN CORPUSCULAR HEMOGLOBIN 30.7 PG (27.0-31.0); MEAN CORPUSCULAR HGB CONC 32.7 g/dL (33.0-36.5); MEAN CORPUSCULAR VOLUME 93.9 FL (78-98); MEAN PLATELET VOLUME 7.7 FL (7.4-10.4); MONOCYTES # (AUTO) 0.5 X10'3 (0-0.9); MONOCYTES % (AUTO) 7.3 % (2-12); NEUTROPHILS # (AUTO) 4.2 X10'3 (1.8-7.7); NEUTROPHILS % (AUTO) 55.8 % (42-75); PLATELET COUNT 297 X10'3 (140-440); RED BLOOD COUNT 3.22 X10'6 (4.20-5.60); RED CELL DISTRIBUTION WIDTH 14.1 % (11.5-14.5); WHITE BLOOD COUNT 7.5 X10'3 (4.5-11.0)
[2024-10-18 19:51] LABS: ALANINE AMINOTRANSFERASE 19 U/L (12-78); ALBUMIN 3.5 G/DL (3.4-5.0); ALBUMIN/GLOBULIN RATIO 1.1 (1.1-1.5); ALKALINE PHOSPHATASE 75 IU/L (46-116); ANION GAP 2 (8-16); ASPARTATE AMINO TRANSFERASE 12 U/L (10-37); BILIRUBIN,TOTAL 0.3 MG/DL (0.1-1.0); BLOOD UREA NITROGEN 9 MG/DL (7-18); BUN/CREATININE RATIO 14.3 (10.0-20.0); CALCIUM 8.3 MG/DL (8.5-10.1); CHLORIDE 100 MMOL/L (99-107); CREATININE 0.63 MG/DL (0.40-0.90); GLUCOSE 110 MG/DL (70-104); SODIUM 139 MMOL/L (135-145); TOTAL CARBON DIOXIDE 36.7 MMOL/L (24-32); TOTAL PROTEIN 6.7 G/DL (6.4-8.2); eCRCL 90 ML/MIN; eGFR > 90 ML/MIN
[2024-10-18 19:57] LABS: PRO BRAIN NATRIURETIC PEPTIDE 85 PG/ML (0-125)
[2024-10-18] MEDS: ketorolac trometh 15mg/ml vial 15 MG/ML ML IV ONE (20:50)
[2024-10-18] MEDS: acetaminophen 325mg tablet PO ONE (20:50)
[2024-10-18 21:20] VITALS: BP 118/55; PULSE 74; RESP 18; O2SAT 98
== END 2024-10-18 21:47 | disposition home or self-care (01) ==
LOC: ER 18:29
DX: R07.9 Chest pain, unspecified (principal); K21.9 Gastro-esophageal reflux disease without esophagitis; J44.9 Chronic obstructive pulmonary disease, unspecified; M19.90 Unspecified osteoarthritis, unspecified site; E11.9 Type 2 diabetes mellitus without complications; F31.9 Bipolar disorder, unspecified; G43.909 Migraine, unspecified, not intractable, without status migrainosus; F41.9 Anxiety disorder, unspecified; Z86.73 Personal history of transient ischemic attack (TIA), and cerebral infarction without residual deficits; Z88.2 Allergy status to sulfonamides; Z88.1 Allergy status to other antibiotic agents; Z88.8 Allergy status to other drugs, medicaments and biological substances; Z98.890 Other specified postprocedural states
CPT/HCPCS: 36415; 71045; 80053; 83880; 84484; 85025; 93005; 96374; 99285; J1885; 99284

== ENCOUNTER 2025-02-08 18:26 | Inpatient (IN) | payer MEDICAID ==
[~2025-02-08] VITALS: Ht 170.2 cm; Wt 102.0 kg
[2025-02-08] MEDS: normal saline 1000ml 1,000 ML IV SCH (03:00)
[~2025-02-08 18:26] MED LIST changes: +LIDO-52 TOP; -LIDO700A32 TOP
--- NOTE | 2025-02-08 18:39 | Physician Documentation ---
History of Present Illness ~ Stated Complaint: CHEST DISCOMFORT Time Seen by MD: 19:27 Primary Medical Doctor: GANGA LEVINE Patient presents to the emergency room for evaluation of chest pain for which she felt was a cramping pain just to the right of her sternum that has severe enough that she called an ambulance and she felt as if this was going to kill her. She was established with a dog pound attendant, Dr. Valdovinos, he was arrange for a stress test on outpatient basis to investigate her heart in the light of her respiratory status. Last stress test was in 2020 which was negative. She is normally on 3 L of oxygen which has not changed. Tonight she was sitting watching television when she began having this pain which she states was relieved with nitroglycerin. No current symptoms. She denies one-sided leg pain Medication Reconciliation Allergies: Coded Allergies: Sulfa (Sulfonamide Antibiotics) (Verified Allergy, Unknown, 02/08/25) gabapentin (Verified Allergy, Unknown, 02/08/25) tetracycline (Verified Adverse Reaction, Unknown, 02/08/25) Scheduled Aspirin (Ecotrin*), 1 TAB PO DAILY Lidocaine (Lidoderm), 1 PATCH TOP DAILY Metformin HCl (Metformin HCl), 1 TAB PO BID, (Reported) Pantoprazole Sodium (Protonix), 1 PKT PO DAILY Pregabalin (Lyrica), 1 CAP PO Q12H, (Reported) Scheduled PRN Acetaminophen (Acetaminophen), 1 TAB PO Q8H PRN for pain Albuterol (Albuterol), 2 PUFF IH Q4H PRN for SOB or wheezing, (Reported) Lorazepam (Ativan), 1 TAB PO TID PRN for anxiety, (Reported) Quetiapine Fumarate (Quetiapine Fumarate), 1 TAB PO BID PRN for PRN, (Reported) Sumatriptan Succinate (Sumatriptan Succinate), 1 TAB PO DAILY PRN for migraine headaches, (Reported) Discontinued Medications Ketoconazole (Ketoconazole), 1 APPLIC TOP BID, (Reported) Discontinued Reason: patient no longer taking Pregabalin (Pregabalin), 1 CAP PO BID, (Reported) Discontinued Reason: Other Pregabalin* (Lyrica*), 2 CAP PO BID, (Reported) Discontinued Reason: wrong med Past Medical History Past Medical History: CVA/TIA/Stroke, Headache, Migraine, Asthma, Bronchitis, COPD, Emphysema, Pneumonia, GERD, Diabetes, Arthritis, Chronic Pain, Chronic Back Pain, Cellulitis, *PSYCH*, Anxiety, Bipolar, Depression, Panic Disorder, Psychosis Past Surgical History: orthopedic surgeries Alcohol Use: Rarely Drug Use: other Lives with: S/O Lives In: Home Occupation: disabled Review of Systems ROS All review of systems negative except as per HPI Physical Exam Physical Exam General: Patient is awake, alert, oriented x4 in no acute distress Head: Normocephalic and atraumatic. Eyes: Conjunctival normal. EOMI. PERRL. ENT: Mucous membranes moist. Neck: Supple, trachea is midline. Chest: Clear to auscultation bilaterally without rales, rhonchi, or wheezes. There is no accessory muscle use or retractions. Cardiac: RRR without murmurs, gallops, or rubs. Abd: Soft, nondistended, nontender, with normoactive bowel sounds. No guarding, rebound, or rigidity. Extremities: Normal strength. Normal range of motion. No deformities or edema. No calf tenderness to palpation Progress Results/Orders Results/Orders Orders - ALEXANDER EVANS MD Chest,Single View (02/08/25 19:11) Monitor (02/08/25 18:52) Saline Lock (02/08/25 18:52) Oxygen (02/08/25 18:52) Hs Troponin I W Calculations (02/08/25 21:52) Page Hospitalist (02/08/25 22:32) Fill Out Med Reconciliation (02/08/25 22:32) Completed Orders - ALEXANDER EVANS MD Chest,Single View (02/08/25 19:11) Cbc/Diff (02/08/25 18:52) BMP (02/08/25 18:52) PBNP (02/08/25 18:52) Electrocardiogram (02/08/25 18:52) Hs Troponin I W Calculations (02/08/25 18:52) Hs Troponin I W Calculations (02/08/25 20:52) Vital Signs 02/08/25 02/08/25 02/08/25 02/08/25 18:53 19:03 20:32 22:32 Temp 98.1 Pulse 70 65 70 Resp 18 18 16 16 B/P (MAP) 97/67 96/54 (68) 112/58 (76) Pulse Ox 97 97 98 O2 Flow Rate 3.0 3.0 Laboratory Tests Test 02/08/25 19:08 02/08/25 21:05 White Blood Count 6.6 Red Blood Count 2.92 L Hemoglobin 8.9 L Hematocrit 26.6 L Mean Corpuscular Volume 91.2 Mean Corpuscular Hemoglobin 30.6 Mean Corpuscular Hemoglobin Concent 33.5 Red Cell Distribution Width 14.6 H Platelet Count 289 Mean Platelet Volume 7.0 L Neutrophils (%) (Auto) 60.3 Lymphocytes (%) (Auto) 22.9 Monocytes (%) (Auto) 8.7 Eosinophils (%) (Auto) 7.8 H Basophils (%) (Auto) 0.3 Neutrophils # (Auto) 4.0 Lymphocytes # (Auto) 1.5 Monocytes # (Auto) 0.6 Eosinophils # (Auto) 0.5 Basophils # (Auto) 0.0 CBC Comment Sodium Level 141 Potassium Level 4.3 Chloride Level 102 Carbon Dioxide Level 36.2 H Anion Gap 3 L Blood Urea Nitrogen 12 Creatinine 0.85 Estimated GFR/1.73 m2 68 BUN/Creatinine Ratio 14.1 Glucose Level 125 H Calcium Level 8.0 L Troponin I High Sensitivity 4 4 Pro-B-Type Natriuretic Peptide 94 Albumin 3.0 L Chemistry Comments Troponin I High Sens Percent Delta 0 Troponin I Hi Sens Absolute Change 0 EKG/XRAY/CT/US/VASC/MRI EKG : Additional Comment EKG interpreted by myself shows time of 1901, rate 69, sinus rhythm, normal axis, no ST changes Chest X-Ray : Additional Comments One view chest x-ray interpreted by myself is negative for effusions or infiltrates and normal cardiac silhouette. Noted flattening of diaphragm. Medical Decision Making Findings Patient presents to the emergency room with disconcerting story of chest pain. Patient with elevated heart score and we will admit for further investigation. Differential Dx:Considerations: Include: angina, aortic dissection, chest wall pain, cholelithiasis, CHF, costochondritis, esophageal reflux/spasm, gastritis, herpes zoster, myocardial infarction, pericarditis, pleuritis, pancreatitis, pneumonia, pneumothorax, pulmonary embolus, other Departure Impression: Primary Impression: Chest pain Condition: Guarded Referrals: NO PRIMARY CARE PROVIDER (PCP) Prescriptions Pantoprazole Sodium (Protonix) 40 Mg Suspdr.pkt 1 PKT PO DAILY for 30 Days, #30 PKT 0 Refills Prov: PANKAJ,TIN, RES 02/09/25 Aspirin (Ecotrin*) 81 Mg Tablet.dr 1 TAB PO DAILY, #30 TAB.SR Prov: PANKAJ,TIN, RES 02/09/25 Lidocaine (Lidoderm) 5 % Adh..patch 1 PATCH TOP DAILY for 30 Days, #30 PATCH 0 Refills may wear up to 12 hours Prov: PANKAJ,TIN, RES 02/09/25 Acetaminophen (Acetaminophen) 325 Mg Tablet 1 TAB PO Q8H PRN for pain MDD 3G, #30 TAB Prov: PANKAJ,TIN, RES 02/09/25 Signature Scribe Signature: No scribe Attestation: The note accurately reflects work and decisions made by me.Alexander Evans MD 02/09/25 22:12 LIAT BALDERAS Feb 08, 2025 18:39 ALEXANDER EVANS MD Feb 08, 2025 19:41
--- NOTE | 2025-02-08 19:03 | ELECTROCARDIOGRAPH REPORT ---
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
[2025-02-08 19:17] LABS: BASOPHILS % (AUTO) 0.3 % (0-1); EOSINOPHILS # (AUTO) 0.5 X10'3 (0-0.9); EOSINOPHILS % (AUTO) 7.8 % (0-6); HEMATOCRIT 26.6 % (35.0-45.0); HEMOGLOBIN 8.9 g/dl (12.0-16.0); LYMPHOCYTES # (AUTO) 1.5 X10'3 (1.1-4.8); LYMPHOCYTES % (AUTO) 22.9 % (21-51); MEAN CORPUSCULAR HEMOGLOBIN 30.6 PG (27.0-31.0); MEAN CORPUSCULAR HGB CONC 33.5 g/dL (33.0-36.5); MEAN CORPUSCULAR VOLUME 91.2 FL (78-98); MONOCYTES # (AUTO) 0.6 X10'3 (0-0.9); MONOCYTES % (AUTO) 8.7 % (2-12); NEUTROPHILS % (AUTO) 60.3 % (42-75); PLATELET COUNT 289 X10'3 (140-440); RED BLOOD COUNT 2.92 X10'6 (4.20-5.60); RED CELL DISTRIBUTION WIDTH 14.6 % (11.5-14.5); WHITE BLOOD COUNT 6.6 X10'3 (4.5-11.0)
[2025-02-08 19:41] LABS: ANION GAP 3 (8-16); BLOOD UREA NITROGEN 12 MG/DL (7-18); BUN/CREATININE RATIO 14.1 (10.0-20.0); CHLORIDE 102 MMOL/L (99-107); CREATININE 0.85 MG/DL (0.40-0.90); GLUCOSE 125 MG/DL (70-104); POTASSIUM 4.3 MMOL/L (3.5-5.1); PRO BRAIN NATRIURETIC PEPTIDE 94 PG/ML (0-125); SODIUM 141 MMOL/L (135-145); TOTAL CARBON DIOXIDE 36.2 MMOL/L (24-32); eCRCL 67 ML/MIN; eGFR 68 ML/MIN
--- NOTE | 2025-02-08 19:52 | RADIOLOGY REPORT ---
CHEST XRAY: 1 view(s) was obtained HISTORY: CP COMPARISON: DI CHEST,SINGLE VIEW on DOS: 10/18/24, DI CHEST,SINGLE VIEW on DOS: 08/15/24, DI CHEST,SING LE VIEW on DOS: 11/30/23, DI CHEST,SINGLE VIEW on DOS: 05/22/23 FINDINGS: Expansion: Normal. Lungs parenchyma: Mild septal thickening.Pleura: No pleural effusion. No pneumothorax. Mediastinum: Mildly enlarged. Chest Wall, upper abdomen and lower Neck: Unremarkable. IMPRESSION: 1. Mild cardiomegaly and interstitial pulmonary edema
[2025-02-08] MEDS ORDERED: morphine 2 MG/ML inj. syringe IV PRN ×2 (22:45)
[2025-02-08] MEDS ORDERED: acetaminophen 325mg tablet PO PRN ×2 (22:45)
[2025-02-08] MEDS ORDERED: magnesium sulf-water 2g/50mL 50 ML IV PRN (22:45)
[2025-02-08] MEDS ORDERED: magnesium Cl slow-release 64mg tablet PO PRN (22:45)
[2025-02-08] MEDS ORDERED: magnesium hydroxide 30ml (MOM) UD suspension PO PRN (22:45)
[2025-02-08] MEDS ORDERED: magnesium sulf-water 4G/100mL 100 ML IV PRN (22:45)
[2025-02-08] MEDS ORDERED: potassium Cl 40MEQ/1/2NS 520ml 520 ML IV PRN (22:45)
[2025-02-08] MEDS ORDERED: mag hydrox/Alum hydrox/simeth 30ml oral suspension PO PRN (22:45)
[2025-02-08] MEDS ORDERED: PERFLUTREN PROTEIN-A MICROSPHR (Optison) 0.22 MG/ML 3ML VIAL IV PRN (22:45)
[2025-02-08] MEDS ORDERED: ondansetron/PF 4mg/2ml inj IV PRN (22:45)
[2025-02-08] MEDS ORDERED: potassium Cl 20 mEq SR tablet PO PRN ×2 (22:45)
[2025-02-08] MEDS ORDERED: nitroGLYCERIN 0.4mg SUBLingual tab SL PRN (23:30)
[2025-02-08] MEDS: aspirin 325mg tablet PO ONE (23:35)
--- NOTE | 2025-02-08 23:49 | HISTORY AND PHYSICAL-Residence ---
History & Physical Providers to CC Resident Creating Document: HENRIK HUBER, SAVANA ~ History of Present Illness Primary Medical Doctor: Dr. Archer [facility] Reason for Admit\Complaint: Chest pain History of Present Illness 64-year-old female with past medical history of type 2 diabetes mellitus, COPD, hyperlipidemia presented to the ER with chief complaints of chest pain. Endorses chest discomfort in the form of pressure, more on the right side, rated 7/10, aggravated with exertion, relieved with nitroglycerin. She felt like this chest pain is going to kill ahead and called ambulance and came to the ER. She was established with a hatchery man, Dr. Valdovinos, he was arrange for a stress test on outpatient basis to investigate her heart in the light of her respiratory status. Last stress test was in 2020 which was negative. She is normally on 3 L of oxygen which has not changed. Tonight she was sitting watching television when she began having this pain . She denies shortness of breath, palpitations, swelling of the legs, wheeze, fever, cough, syncope, diaphoresis, bilateral leg pain. Discuss code status with the patient and patient wants to be full code Allergies: Coded Allergies: Sulfa (Sulfonamide Antibiotics) (Verified Allergy, Unknown, 02/08/25) gabapentin (Verified Allergy, Unknown, 02/08/25) tetracycline (Verified Adverse Reaction, Unknown, 02/08/25) Home Medications Home Medications Active Lidoderm (Lidocaine) 5 % Adh..patch 1 Patch TOP DAILY 30 Days may wear up to 12 hours Reported Acetaminophen 325 Mg Tablet 1 Tab PO Ketoconazole 2 % Cream..g. 1 Applic TOP BID Ativan (Lorazepam) 1 Mg Tablet 1 Tab PO TID PRN Sumatriptan Succinate 50 Mg Tablet 1 Tab PO DAILY PRN Albuterol 17 Gm Aerosol 2 Puff IH Q4H PRN Metformin HCl 1,000 Mg Tablet 1 Tab PO BID Quetiapine Fumarate 50 Mg Tablet 1 Tab PO BID PRN 30 Days 0800 and 2100 bedtime, anxiety and sleep Pregabalin 100 Mg Capsule 1 Cap PO BID Past Medical History Past Medical History CVA/TIA/Stroke, Headache, Migraine, Asthma, Bronchitis, COPD, Emphysema, Pneumonia, GERD, Diabetes, Arthritis, Chronic Pain, Chronic Back Pain, Cellulitis, *PSYCH*, Anxiety, Bipolar, Depression, Panic Disorder, Psychosis Past Surgical History Surgical History Comment orthopedic surgeries-surgery for right leg trauma Past Social History Smoking: Quit greater than 1 year Alcohol Use: Rarely Drug Use: Other Lives with: S/O Lives In: Home Occupation: disabled ROS All Other Systems: Reviewed and Negative ROS Reviewed in full and negative except positive pertinent as in HPI ENT: Denies: mouth swelling Exam Vitals: Vital Signs Date Time Temp Pulse Resp B/P (MAP) Pulse Ox O2 Delivery O2 Flow Rate FiO2 02/08/25 22:32 70 16 112/58 (76) 98 3.0 02/08/25 18:53 98.1 General: General: Patient is awake, alert, oriented x4. in no acute distress Head: Normocephalic and atraumatic. No JVD, no carotid upstroke Eyes: Conjunctival normal. EOMI. PERRL. ENT: Mucous membranes moist. Neck: Supple, trachea is midline. Respiratory system: Clear to auscultation bilaterally without rales, rhonchi, or wheezes. There is no accessory muscle use or retractions. Cardiovascular source: RRR without murmurs, gallops, or rubs. Gastrointestinal: Soft, nondistended, nontender, with normoactive bowel sounds. No guarding, rebound, or rigidity. Extremities: Normal strength. Normal range of motion. No deformities or edema. No calf tenderness to palpation Psychiatry: Mood and affect is normal Skin: Warm and moist Diagnostic Data Last Recorded Lab Results: 02/08/[id number] Diagnostic Data: Laboratory Tests Test 02/08/25 23:29 Coagulation Comments Advance Care Planning Advanced Care planning: Add on additional 30 min Additional Plan Acute coronary syndrome- Unstable angina Heart score of five Blood pressures initially in 90s Troponins&proBNP is negative EKG showed poor R-wave progression in V3 complex. Left axis deviation is present Ordered echocardiogram Received one dose of aspirin 325 mg Currently on aspirin 81 mg, atorvastatin 80 mg, nitroglycerin 0.4 q.5h minute p.r.n. Patient is in NPO on ordered Lexiscan On heparin subQ for DVT prophylaxis Normocytic normochromic anemia Hemoglobin of 8.9, hematocrit of 26.6 Continue to monitor H&H daily , transfuse if hemoglobin is less than 7 Type 2 diabetes mellitus Ordered A1c Glucose is 125 Continue to monitor blood glucose with a target of 140-180 COPD Continuing 2 L of oxygen On DuoNeb q.4 h scheduled Code status: Full code Diet: NPO DVT prophylaxis: Subcutaneous heparin PT: Order Prognosis: Guarded Henrik Huber IM resident Patient seen and examined with HIPAA compliant audio visual aid. Patient was discussed with the resident, agree with the plan as above with no changes. Linda Loaiza MD Tele critical care Date of Service: Feb 08, 2025 Billing Provider[facility] Feb 08, 2025 23:49 LINDA LOAIZA MD Feb 10, 2025 18:39
[2025-02-08 23:55] LABS: APTT 28 SECONDS (22-32); PROTHROMBIN TIME 10.3 SECONDS (9.0-12.0)
[2025-02-09] VITALS (16 sets, daily range): BP systolic 108–137; BP diastolic 42–72; PULSE 65–85; RESP 13–25; TEMP 97.6–98.2; O2SAT 94–99
[2025-02-09] MEDS: aspirin 81mg, enteric-coated 1 TAB TABLET.DR PO ONE (01:02)
[2025-02-09] MEDS: atorvastatin 20mg tablet PO SCH (01:03)
[2025-02-09] MEDS: heparin, porcine 5000 units/ml vial SQ SCH (01:03)
[2025-02-09] MEDS: HYDROcodone/acetaminophen 5mg/325mg tablet PO PRN (01:06)
[2025-02-09] MEDS: ipratropium/albuterol 3ml nebule NEB SCH (04:01)
[2025-02-09] MEDS ORDERED: LYR25C PO (05:06)
[2025-02-09] MEDS ORDERED: PREG150C PO (05:06)
[2025-02-09 06:15] LABS: BASOPHILS % (AUTO) 0.4 % (0-1); EOSINOPHILS # (AUTO) 0.5 X10'3 (0-0.9); EOSINOPHILS % (AUTO) 9.2 % (0-6); HEMOGLOBIN 9.8 g/dl (12.0-16.0); LYMPHOCYTES # (AUTO) 1.5 X10'3 (1.1-4.8); LYMPHOCYTES % (AUTO) 27.1 % (21-51); MEAN CORPUSCULAR HEMOGLOBIN 29.6 PG (27.0-31.0); MEAN CORPUSCULAR HGB CONC 32.7 g/dL (33.0-36.5); MEAN CORPUSCULAR VOLUME 90.5 FL (78-98); MONOCYTES # (AUTO) 0.5 X10'3 (0-0.9); MONOCYTES % (AUTO) 8.5 % (2-12); NEUTROPHILS # (AUTO) 3.1 X10'3 (1.8-7.7); NEUTROPHILS % (AUTO) 54.8 % (42-75); PLATELET COUNT 306 X10'3 (140-440); RED BLOOD COUNT 3.31 X10'6 (4.20-5.60); WHITE BLOOD COUNT 5.6 X10'3 (4.5-11.0)
[2025-02-09 06:28] LABS: ALANINE AMINOTRANSFERASE 20 U/L (12-78); ALBUMIN 3.1 G/DL (3.4-5.0); ALBUMIN/GLOBULIN RATIO 0.9 (1.1-1.5); ALKALINE PHOSPHATASE 84 IU/L (46-116); ANION GAP 5 (8-16); ASPARTATE AMINO TRANSFERASE 14 U/L (10-37); BILIRUBIN,TOTAL 0.3 MG/DL (0.1-1.0); BLOOD UREA NITROGEN 11 MG/DL (7-18); BUN/CREATININE RATIO 15.7 (10.0-20.0); CALCIUM 8.3 MG/DL (8.5-10.1); CHLORIDE 105 MMOL/L (99-107); GLUCOSE 83 MG/DL (70-104); MAGNESIUM 2.1 MG/DL (1.5-2.4); POTASSIUM 4.4 MMOL/L (3.5-5.1); SODIUM 146 MMOL/L (135-145); TOTAL CARBON DIOXIDE 36.1 MMOL/L (24-32); TOTAL PROTEIN 6.5 G/DL (6.4-8.2); eCRCL 81 ML/MIN; eGFR 85 ML/MIN
[2025-02-09] MEDS: K and/or MAG REPLACEMENT MC SCH (08:00)
[2025-02-09] MEDS: docusate sod 100mg capsule PO SCH (08:27)
[2025-02-09] MEDS: aspirin 81mg, enteric-coated 1 TAB TABLET.DR PO SCH (08:27)
[2025-02-09] MEDS ORDERED: DEXTROSE 15 GM of carb/4 tabs (each vial/BOTTLE has 4 tablets) PO PRN ×2 (08:35)
[2025-02-09] MEDS ORDERED: LORazepam 1 MG tablet PO PRN (08:35)
[2025-02-09] MEDS ORDERED: dextrose 50%-water 50ml dispensing syringe IV PRN ×2 (08:35)
[2025-02-09] MEDS: LIDOcaine 5% patch TP SCH (08:35)
[2025-02-09] MEDS ORDERED: glucagon, human recombinant 1mg kit SUBCUT PRN (08:35)
[2025-02-09] MEDS ORDERED: SUMAtriptan 25 MG tablet PO PRN (08:40)
[2025-02-09] MEDS ORDERED: QUEtiapine 25mg tablet PO PRN (08:40)
[2025-02-09 09:28] LABS: CHOL/HDL RATIO 2.4 (0.00-4.99); CHOLESTEROL 129 MG/DL (0-200); HDL CHOLESTEROL 54 MG/DL (35-60); LDL CHOLESTEROL 55 MG/DL (50-100); THYROID STIMULATING HORMONE 1.48 ulU/ml (0.34-4.50); TRIGLYCERIDES 82 MG/DL (20-135)
[2025-02-09 09:31] LABS: HEMOGLOBIN A1C 5.6 % (4.5-6.2)
[2025-02-09] MEDS: aminophylline 500mg/20ml vial IV ONE (10:55)
[2025-02-09] MEDS: aminophylline 250mg/10ml inj. IV ONE (11:05)
[2025-02-09] MEDS: regadenoson 0.4mg/5ml syringe IV ONE (11:06)
[2025-02-09] MEDS: INSULIN LISPRO 100 UNIT/ML INSULN.PEN MULTI-DOSE SQ SCH (12:00)
--- NOTE | 2025-02-09 13:45 | RADIOLOGY REPORT ---
Reason for study/Clinical History: Unstable angina Comparison Study: None Myocardial Perfusion Study with SPECT Technique: The patient received an intravenous injection of 8.8 mCi of technetium-99m Sestamibi whi porfirio at rest. After a short delay, SPECT tomographic images of the heart were obtained. The patient arturo caraballo went to the stress lab where they received an intravenous Lexiscan utilizing standard protocol. 33 mCi of technetium-99m Sestamibi was injected intravenously immediately after the start of the in fusion. Gated SPECT tomographic images of the heart were acquired and processed. Findings: Rotating planar images show no significant attenuation artifact. The left ventricular size is within normal limits. Stress tomographic images demonstrate normal perfusion. Resting tomographic images demonstrate a similar pattern. Gated portion of the study shows normal wall motion and myocardial thickening. The left ventricular ejection fraction is 69 %. (normal greater than 50%) Impression: Normal left ventricular size, wall motion, and function, without evidence of infarction or of myocard ium at ischemic risk. The left ventricular ejection fraction is 69 %.
[2025-02-09] MEDS ORDERED: PANT40SU2 PO (15:42)
[2025-02-09] MEDS ORDERED: LIDO-52 TOP (15:42)
[2025-02-09] MEDS ORDERED: ASPI-1071 PO (15:42)
[2025-02-09] MEDS ORDERED: ACET325T55 PO (15:42)
--- NOTE | 2025-02-09 15:46 | DISCHARGE SUMMARY-Residence ---
Discharge Summary Providers to CC Resident Creating Document: PANKAJEDDIE, RES ~ Discharge Summary Admission Diagnosis: CHEST PAIN Hospital Course DATE OF ADMISSION: 02/08/2025 DATE OF DISCHARGE: 02/09/2025 Discharge Diagnosis\Comment: # Chest pain, Ruled out ACS with negative Dorene scan # normochromic normocytic anemia # T2 DM # history of last NM Lexiscan in 2020 show negative # COPD and chronic respiratory failure on 3 L/min oxygen at home # HLD # history of ground level falls # DDD cervical spine Operations\Procedures: NM Dorene cardiac stress test Consultants: None Complications: None Condition on DC: Stable New Medications: Pantoprazole Sodium (Protonix) 40 Mg Suspdr.pkt 1 PKT PO DAILY for 30 Days, #30 PKT 0 Refills Aspirin (Ecotrin*) 81 Mg Tablet.dr 1 TAB PO DAILY, #30 TAB.SR Changed Medications: Acetaminophen (Acetaminophen) 325 Mg Tablet 1 TAB PO Q8H PRN for pain MDD 3G, #30 TAB (Medication details modified) Continued Medications: Albuterol (Albuterol) 17 Gm Aerosol 2 PUFF IH Q4H PRN for SOB or wheezing Lidocaine (Lidoderm) 5 % Adh..patch 1 PATCH TOP DAILY for 30 Days, #30 PATCH 0 Refills (This prescription has been renewed) may wear up to 12 hours Lorazepam (Ativan) 1 Mg Tablet 1 TAB PO TID PRN for anxiety Metformin HCl (Metformin HCl) 1,000 Mg Tablet 1 TAB PO BID Pregabalin (Lyrica) 150 Mg Capsule 1 CAP PO Q12H for 30 Days, #60 CAP 0 Refills Quetiapine Fumarate (Quetiapine Fumarate) 50 Mg Tablet 1 TAB PO BID PRN for PRN for 30 Days, #30 TAB 0800 and 2100 bedtime, anxiety and sleep Sumatriptan Succinate (Sumatriptan Succinate) 50 Mg Tablet 1 TAB PO DAILY PRN for migraine headaches Discharge Summary: A 64-year-old female with a past medical history of T2 DM, history of last NM Lexiscan in 2020 show negative, COPD and chronic respiratory failure on 3 L/min oxygen at home, HLD, history of ground level falls, DDD cervical spine, who presented with sudden chest pressure responded to nitroglycerin. Hospital course: She was admitted to the hospital for further management and to ruled out acute coronary syndrome. Her serial troponin level were 4-4-4 with EKG showing poor R-wave progression in V3 compliance and left axis deviation without having any ST-T changes in 12 lead EKG. She was given one time dose of aspirin 325 mg in ER, followed by aspirin 81 mg daily dose. All of her home medications were reconciled and reviewed, continued appropriately. She underwent NM Lexiscan this morning which showed Normal left ventricular size, wall motion, and function, without evidence of infarction or of myocardium at ischemic risk. The left ventricular ejection fraction is 69 %. Her prelim echocardiogram on 02/09/2025 showed Normal EF with mild and slightly elevated pulmonary hypertension, which needed to be followed up fro cardiology report result. Her chest x-ray showed Mild cardiomegaly and interstitial pulmonary edema. Her blood glucose well-controlled with insulin hypo/hyperglycemic protocol with targeted hospitalized glucose level between 140-180s and her HGB A1c was 5.6%. We will continue DuoNeb q.4 hours for her COPD and trying to titrate her oxygen requirement to her baseline 3 L/min before discharge. Her D-dimer was mildly elevated with 0.6 and her modified Well's criteria for acute pulmonary embolism was 0 with a low risk. DVT prophylaxis was achieved with the subcutaneous heparin 5000 units b.i.d.. All of her concerns and questions were answered with the best knowledge of our team before she was discharged today. All of the labs were reviewed with WBC 5.6, hemoglobin 9.8, hematocrit 30, platelet count 306, serum sodium 146, potassium 4.4, chloride 105, BUN 11, creatinine 0.7, RBS 140. All of her vitals were stable at the moment with temp 98.2 F, [place] 67/minute, RR 18/minute, BP 110/66 mm Hg, pulse oximetry 94% on room air. On exam, General: Well alert, well oriented, not confused, not agitated, not in acute distress, well cooperated during the physical. HEENT: Conjunctive are pink, sclerae clear, no icterus, pupil is equal in both sides, reactive to light, no ear discharge, no pharyngeal erythema or an edema, mouth and lips are moist. Neck: Supple, no JVD, no lymphadenopathy and thyromegaly. Lungs:Equal air entry on both lungs, no additional sounds Heart: S1-S2 regular sinus rhythm and, regular rate, no gallops, no rubs, no murmurs Abdomen: No visible peristalsis, Bowel sounds present on auscultation, soft, nontender, no guarding, no rigidity Extremities: No obvious deformities, no pitting edema bilaterally, capillary refill intact, able to wiggle toes both sides, peripheral pulsations are intact on both sides CVOR NURSE: No focal neurological deficits, no motor and sensory weakness in all 4 extremities, could move all 4 extremities Musculoskeletal: No joint swelling, deformities, inflammations, and no scoliosis and back tenderness Skin: No active skin lesions and rashes Discharge instructions: * patient has shown rapid and fast recovery than expected during this hospitalization* -please return to ER for any emergency conditions including intolerable progressive chest pain/pressure/discomfort, dizziness lightheadedness and passing out episode, nausea or vomiting and radiating pain to the back and neck and in her left arm, etc. -please continue follow up with the PCP, Dr. Valdovinos in the outpatient setting in 1-2 weeks after discharge for further management including CBC, CMP, and further management plan with outpatient remote cardiac monitoring and iron study to replace accordingly. -continue taking p.o. acetaminophen 325 mg 3 times daily as needed for pain -continue taking pantoprazole 40 mg before the breakfast in the morning daily for 30 days and stop. -heart healthy diet with strong cardiovascular risk factor modification lifestyle with active exercises were recommended. -medication compliance placed an important role Resident MD attestation: Patient was seen, examined and discussed with attending MD, Dr. Adriana LIRA MD Internal Medicine Resident, PGY2 [facility] *Problems/Diagnosis: (1) Chest pain not due to acute coronary syndrome Status: Resolved (2) Non-cardiac chest pain Status: Resolved Total Time Spent on D/C: > 30 Minutes Date of Service: Feb 09, 2025 Billing Provider: JENNIE MCKEE MD, TIN, RES Feb 09, 2025 15:46
--- NOTE | 2025-02-10 09:53 | CARDIOLOGY REPORT ---
APPROVED REPORT EXAM: Comprehensive 2D, Doppler, and color-flow Echocardiogram. Patient Location: 302 Blood Pressure: 109/71 mmHg Heart Rate: 78 bpm Rhythm: NSR Indications Chest Pain COPD [employer] [employer] is Tiffanie Arnold MD. Previous echo 03/24/21 [facility] 55-60% EF 2D Dimensions LA Diam4.3 cm IVSd 1.2 (0.7-1.1cm) LVDd 5.4 cm PWd 1.2 (0.7-1.1cm) IVSs 1.6 (0.8-1.2cm) LVDs 3.4 (2.5-4.0cm) Aortic Root(2D) 3.1 cm PWs 1.6 (0.8-1.2cm) LVOT Diameter 2.09 (1.8-2.4cm) LVEF(%) 66.2 (>50%) Ao Asc Diam.3.96 cmIVC 19.63 mm FS (%) 36.9 % SV 94.4 ml CO 6.8 L/min M-Mode Dimensions MV EPSS 1.3 (<0.5cm) Aortic Valve AoV Peak Moreno. 207.0 cm/s AoV VTI 45.3 cm AO Peak GR. 17.1 mmHg AO Mean GR. 9 mmHg LVOT VTI 37.13 cm LVOT Peak Moreno. 147.6 cm/s AMANDA(VTI)/BSA 2.83 cm2/m2 AMANDA (VTI) 2.83 cm2 Mitral Valve MV E Velocity 126.5 cm/s MV Peak Gr. 9 mmHg MV DECEL TIME 244 ms MV A Velocity 111.6 cm/s MV PHT 48 ms E/A Ratio 1.1 MVA (PHT) 4.58 cm2 MV MFui615.4 cm/s TDI Medial E' P. V 12.21 cm/s E/Medial E' 10.4 Tricuspid Valve TR P. Velocity 286 cm/s RAP ESTIMATE 10 mmHg TR Peak Gr. 33 mmHg RVSP 43 mmHg Pulmonary Vein S1 Velocity 34.3 cm/s D2 Velocity 64.4 cm/s PVa [id number] cm/s PVa [id number] msec LEFT VENTRICLE Normal LV size and function. Mild concentric hypertrophy. Overall LVEF is 65%. RIGHT VENTRICLE RV appears mildly dilated with normal contractility. RVSP is estimated at 43 mmHG. ATRIA Left atrium is mildly dilated. AORTIC VALVE Trileaflet AV is sclerotic but opens well with no significant stenosis. Mild insufficiency. MITRAL VALVE MV is thickened with mild annular calcification and no stenosis. Trace mitral regurgitation. TRICUSPID VALVE The tricuspid valve is normal in structure. Trace tricuspid regurgitation. PULMONIC VALVE The pulmonary valve is normal in structure. Trace pulmonic regurgitation. GREAT VESSELS The aortic root is normal in size. Ascending aorta measured at 4.0 cm. The IVC is normal in size and collapses >50% with inspiration. PERICARDIUM There is no pericardial effusion. Conclusion Overall LVEF is 65%. Normal LV size and function. Mild concentric hypertrophy. RV appears mildly dilated with normal contractility. RVSP is estimated at 43 mmHG. Trileaflet AV is sclerotic but opens well with no significant stenosis. Mild insufficiency. Trace mitral regurgitation. Trace pulmonic regurgitation. There is no pericardial effusion.
== END 2025-02-09 16:35 | disposition home or self-care (01) | DRG 203 ==
LOC: ER 18:27 → ED HOLD 22:51 → EDBEDREQ 23:29 → PCU 3S 02-09 00:20
PROVIDERS: ADMIT Internal Medicine Pulmonary Disease; ATTEND Family Medicine
PROC: 4A02XM4 Measurement of Cardiac Total Activity, External Approach (ICD-10-PCS; principal; 2025-02-09)
PROC: 3E033HZ Introduction of Radioactive Substance into Peripheral Vein, Percutaneous Approach (ICD-10-PCS; 2025-02-09)
DX: R07.89 Other chest pain (principal); D64.9 Anemia, unspecified; E11.9 Type 2 diabetes mellitus without complications; F31.9 Bipolar disorder, unspecified; F41.9 Anxiety disorder, unspecified; J44.9 Chronic obstructive pulmonary disease, unspecified; J43.9 Emphysema, unspecified; M50.30 Other cervical disc degeneration, unspecified cervical region; K21.9 Gastro-esophageal reflux disease without esophagitis; G43.909 Migraine, unspecified, not intractable, without status migrainosus; Z86.73 Personal history of transient ischemic attack (TIA), and cerebral infarction without residual deficits; Z88.2 Allergy status to sulfonamides; Z88.1 Allergy status to other antibiotic agents; Z88.8 Allergy status to other drugs, medicaments and biological substances
CPT/HCPCS: 36415; 71045; 78452; 80048; 80053; 80061; 82948; 83036; 83735; 83880; 84443; 84484; 85025; 85379; 85610; 85730; 87081; 93005; 93017; 93306; 94640; 94760; 99285; A9500; G0378; J1644; J1815; J2785; J7030

== ENCOUNTER 2025-05-29 19:25 | Emergency (ER) | payer MEDICAID ==
[~2025-05-29] VITALS: Ht 170.2 cm; Wt 100.0 kg
[~2025-05-29 19:25] MED LIST changes: +ASPI-1071 PO; -KETO15CR2 TOP; +PANT40SU2 PO; -PREG100C56 PO; +PREG150C PO
[2025-05-29] MEDS ORDERED: acetaminophen w/codeine (60MG) #4 tablet PO ONE (20:05)
--- NOTE | 2025-05-29 20:13 | Physician Documentation ---
History of Present Illness ~ Chief Complaint: Puncture Wound Stated Complaint: L ELBOW PAIN Time Seen by MD: 19:41 [facility] Mode of Arrival: POV Exam Limitations: no limitations HPI With past medical history significant for diabetes, hypertension, hyp erlipidemia, COPD on home oxygen presents secondary to left elbow wound. She sustained a wound of couple of days ago. Now with swelling, erythema and drainage. No known fever but does have chills. States her thermometer is broken. Tetanus within 5 years?: Yes Medication Reconciliation Allergies: Coded Allergies: Sulfa (Sulfonamide Antibiotics) (Verified Allergy, Unknown, 05/29/25) gabapentin (Verified Allergy, Unknown, 05/29/25) tetracycline (Verified Adverse Reaction, Unknown, 05/29/25) Scheduled Aspirin (Ecotrin*), 1 TAB PO DAILY Clindamycin HCL* (Clindamycin HCL*), 1 CAP PO TID Lidocaine (Lidoderm), 1 PATCH TOP DAILY Metformin HCl (Metformin HCl), 1 TAB PO BID, (Reported) Pantoprazole Sodium (Protonix), 1 PKT PO DAILY Pregabalin (Lyrica), 1 CAP PO Q12H, (Reported) Scheduled PRN Acetaminophen (Acetaminophen), 1 TAB PO Q8H PRN for pain Albuterol (Albuterol), 2 PUFF IH Q4H PRN for SOB or wheezing, (Reported) Lorazepam (Ativan), 1 TAB PO TID PRN for anxiety, (Reported) Quetiapine Fumarate (Quetiapine Fumarate), 1 TAB PO BID PRN for PRN, (Reported) Sumatriptan Succinate (Sumatriptan Succinate), 1 TAB PO DAILY PRN for migraine headaches, (Reported) Past Medical History Past Medical History: CVA/TIA/Stroke, Headache, Migraine, Asthma, Bronchitis, COPD, Emphysema, Pneumonia, GERD, Diabetes, Arthritis, Chronic Pain, Chronic Back Pain, Cellulitis, *PSYCH*, Anxiety, Bipolar, Depression, Panic Disorder, Psychosis Past Surgical History: orthopedic surgeries Alcohol Use: Rarely Drug Use: other Lives with: S/O Lives In: Home Occupation: disabled Review of Systems ROS Review of systems negative except documented in HPI. Physical Exam Vital Signs: RN Vital Signs have been reviewed: Yes, Temperature: 96.3, Source: Temporal, Heart Rate: 89, Respiratory Rate: 15, BP: 123/65, Pulse Oximetry: 95, Weight: 100.000 Pulse Oximetry Reflects: adequate oxygenation Physical Exam General: Awake, alert, oriented. No apparent distress Neck: Supple. Normal range of motion. No JVD Respiratory: Lungs are clear to auscultation bilaterally. No respiratory distress. Chest: Normal shape and size. No accessory muscle use. Cardiovascular: Regular rate and rhythm. S1-S2. No murmur, gallop, rub. Extremities: Left elbow with erythema, swelling and clear drainage. Neurologic: Alert and oriented x4. Nonfocal Psychiatric: Normal mood and affect. Skin: Normal color. Warm and dry. + erythema left elbow with warmth. Progress Results/Orders Results/Orders Completed Orders - AUGUSTINE CAMPA CAR DRYER Cbc/Diff (05/29/25 20:02) Procalcitonin (05/29/25 20:02) BMP (05/29/25 20:02) Acetaminophen W/Codeine #3 Tab (Tylenol (05/29/25 20:15) Clindamycin Capsule (Cleocin Capsule) (05/29/25 21:05) Medications Received in ER Medications (Trade) Dose Ordered Sig/Trevor Route PRN Reason Start Time Stop Time Status Last Admin Dose Admin (Tylenol w/ Codeine #3 tablet) 2 tab ONCE ONCE PO 05/29/25 20:15 05/29/25 20:16 DC 05/29/25 20:18 2 TAB (Cleocin capsule) 300 mg ONCE ONCE PO 05/29/25 21:05 05/29/25 21:06 DC 05/29/25 21:29 300 MG Vital Signs 05/29/25 05/29/25 05/29/25 19:46 19:49 21:32 Temp 96.3 98.6 Pulse 89 82 Resp 15 20 B/P (MAP) 123/65 124/72 Pulse Ox 99 95 96 O2 Delivery Nasal Cannula* O2 Flow Rate 4 FiO2 36 Laboratory Tests Test 05/29/25 20:17 White Blood Count 13.8 H Red Blood Count 3.57 L Hemoglobin 10.5 L Hematocrit 31.9 L Mean Corpuscular Volume 89.5 Mean Corpuscular Hemoglobin 29.5 Mean Corpuscular Hemoglobin Concent 33.0 Red Cell Distribution Width 14.7 H Platelet Count 341 Mean Platelet Volume 7.0 L Neutrophils (%) (Auto) 83.5 H Lymphocytes (%) (Auto) 6.4 L Monocytes (%) (Auto) 6.3 Eosinophils (%) (Auto) 3.5 Basophils (%) (Auto) 0.3 Neutrophils # (Auto) 11.5 H Lymphocytes # (Auto) 0.9 L Monocytes # (Auto) 0.9 Eosinophils # (Auto) 0.5 Basophils # (Auto) 0.0 CBC Comment Sodium Level 142 Potassium Level 4.6 Chloride Level 102 Carbon Dioxide Level 34.7 H Anion Gap 5 L Blood Urea Nitrogen 8 Creatinine 0.82 Estimated GFR/1.73 m2 70 BUN/Creatinine Ratio 9.8 L Glucose Level 104 Calcium Level 8.6 Albumin 3.6 Procalcitonin < 0.05 Chemistry Comments Medical Decision Making Findings Patient presents with erythema and swelling to her left elbow. She is a diabetic and has multiple comorbidities. Therefore, laboratory evaluation with CBC and basic metabolic panel was completed as well as a procalcitonin to ensure no systemic infection. She was found to have leukocytosis but procalcitonin was negative. He will be treated for purulent cellulitis. Risks of undertreated infection reviewed. Shows incision using was utilized. She would like to try outpatient management. She will follow up within 48 hours if no improvement. Aftercare instructions reviewed in detail. Differential Dx:Considerations: Include: Abscess, Cellulitis, Dressing change Departure Time of Disposition: 20:59 Disposition: 01 HOME / SELF CARE / HOMELESS Impression: Primary Impression: Cellulitis Qualified Codes: L03.114 - Cellulitis of left upper limb Condition: Stable Discharge Instructions: Cellulitis, Adult Additional Instructions: Recommend taking probiotics to help prevent diarrhea related to antibiotic use. If any worsening of the redness, drainage or pain that is inconsistent I recommend that you return to the emergency department immediately. Please follow up here in the emergency department or with your primary care provider in three days for a wound check. Or sooner if worsening. Monitor for fevers. Your white cell count was a little bit elevated which can indicate an infection. You are being discharged from the emergency department with the understanding that he will return for new or worsening symptoms. Referrals: NO PRIMARY CARE PROVIDER (PCP) Prescriptions Clindamycin HCL* (Clindamycin HCL*) 300 Mg Capsule 1 CAP PO TID for 7 Days, #21 CAP 0 Refills Prov: AUGUSTINE CAMPA NP 05/29/25 Education Educated: Patient Educated regarding: diagnosis, treatment, need for follow up Signature Scribe Signature: No scribe Attestation: The note accurately reflects work and decisions made by me.Augustine Campa - KEIRY 05/30/25 00:02 This note was created with the assistance of voice recognition software whereby errors in grammar, syntax, and/or spelling may have occurred despite active proofreading efforts by the author. Please do not hesitate to contact the provider for clarification or for questions regarding the content of this document. AUGUSTINE CAMPA NP May 29, 2025 20:13
[2025-05-29] MEDS ORDERED: acetaminophen w/codeine (30MG) #3 tablet PO ONE (20:15)
[2025-05-29] MEDS: acetaminophen w/codeine (30MG) #3 tablet PO ONE (20:18)
[2025-05-29 20:24] LABS: MEAN PLATELET VOLUME 7.0 FL (7.4-10.4); RED CELL DISTRIBUTION WIDTH 14.7 % (11.5-14.5)
[2025-05-29 20:37] LABS: CREATININE 0.82 MG/DL (0.40-0.90); TOTAL CARBON DIOXIDE 34.7 MMOL/L (24-32); eCRCL 68 ML/MIN; eGFR 70 ML/MIN
[2025-05-29] MEDS ORDERED: CLIN-224 PO (21:04)
[2025-05-29 21:32] VITALS: BP 124/72; PULSE 82; RESP 20; TEMP 98.6; O2SAT 96
== END 2025-05-29 21:33 | disposition home or self-care (01) ==
LOC: ER 19:26
DX: L03.114 Cellulitis of left upper limb (principal); E11.9 Type 2 diabetes mellitus without complications; F41.9 Anxiety disorder, unspecified; G43.909 Migraine, unspecified, not intractable, without status migrainosus; K21.9 Gastro-esophageal reflux disease without esophagitis; E78.5 Hyperlipidemia, unspecified; F31.9 Bipolar disorder, unspecified; I10 Essential (primary) hypertension; J43.9 Emphysema, unspecified; M19.90 Unspecified osteoarthritis, unspecified site; Z86.73 Personal history of transient ischemic attack (TIA), and cerebral infarction without residual deficits; Z88.1 Allergy status to other antibiotic agents; Z88.2 Allergy status to sulfonamides; Z88.8 Allergy status to other drugs, medicaments and biological substances; Z79.82 Long term (current) use of aspirin
CPT/HCPCS: 36415; 80048; 84145; 85025; 99284

== ENCOUNTER 2025-08-01 17:51 | Emergency (ER) | payer MEDICAID ==
[~2025-08-01] VITALS: Ht 170.2 cm; Wt 97.3 kg
[~2025-08-01 17:51] MED LIST changes: +CLIN-224 PO
[2025-08-01 17:57] VITALS: BP 142/78; PULSE 90; TEMP 97.9; O2SAT 96
--- NOTE | 2025-08-01 18:52 | RADIOLOGY REPORT ---
EXAM: DI FOOT, COMPLETE (3VW MIN) INDICATION: FOOT PAIN LEFT TECHNIQUE: 3 views of the left foot COMPARISON: DI FOOT, COMPLETE (3VW MIN) on DOS: 06/18/24 FINDINGS: Transversely oriented nondisplaced fracture with intra-articular extension of the proximal 5th metatarsal meta diaphysis. Additional nondisplaced suspected fracture of the 4th metacarpal head/neck. Dorsal forefoot soft tissue swelling. Question bone infarct of the calcaneus and distal tibia. Diffusely decreased bone mineralization. IMPRESSION: 1. Transversely oriented nondisplaced fracture with intra-articular extension of the proximal 5th metatarsal meta diaphysis. 2. Additional nondisplaced suspected fracture of the 4th metacarpal head/neck. 3. Question bone infarct of the calcaneus and distal tibia.
--- NOTE | 2025-08-01 19:45 | Physician Documentation ---
History of Present Illness ~ Chief Complaint: Foot pain Stated Complaint: L FOOT PAIN Time Seen by MD: 19:43 Primary Medical Doctor: Javy gant mt HPI Patient presents to the emergency room with left foot pain after hitting he would not refrigerator yesterday after taking Seroquel. She did strike her head on the refrigerator but no loss of consciousness and she is not on any blood thinners. Tetanus witin 5 years: Yes Medication Reconciliation Allergies: Coded Allergies: Sulfa (Sulfonamide Antibiotics) (Verified Allergy, Unknown, 08/01/25) gabapentin (Verified Allergy, Unknown, 08/01/25) tetracycline (Verified Adverse Reaction, Unknown, 08/01/25) Scheduled Aspirin (Ecotrin*), 1 TAB PO DAILY Clindamycin HCL* (Clindamycin HCL*), 1 CAP PO TID Lidocaine (Lidoderm), 1 PATCH TOP DAILY Metformin HCl (Metformin HCl), 1 TAB PO BID, (Reported) Pantoprazole Sodium (Protonix), 1 PKT PO DAILY Pregabalin (Lyrica), 1 CAP PO Q12H, (Reported) Scheduled PRN Acetaminophen (Acetaminophen), 1 TAB PO Q8H PRN for pain Albuterol (Albuterol), 2 PUFF IH Q4H PRN for SOB or wheezing, (Reported) Hydrocodone Bit/Acetaminophen 5/325 MG ([place] 5/325 MG), 1 TAB PO Q4-6 hours PRN for pain Lorazepam (Ativan), 1 TAB PO TID PRN for anxiety, (Reported) Quetiapine Fumarate (Quetiapine Fumarate), 1 TAB PO BID PRN for PRN, (Reported) Sumatriptan Succinate (Sumatriptan Succinate), 1 TAB PO DAILY PRN for migraine headaches, (Reported) Past Medical History Past Medical History: CVA/TIA/Stroke, Headache, Migraine, Asthma, Bronchitis, COPD, Emphysema, Pneumonia, GERD, Diabetes, Arthritis, Chronic Pain, Chronic Back Pain, Cellulitis, *PSYCH*, Anxiety, Bipolar, Depression, Panic Disorder, Psychosis Past Surgical History: orthopedic surgeries Alcohol Use: Rarely Drug Use: other Lives with: S/O Lives In: Home Occupation: disabled Review of Systems ROS All review of systems negative except as per HPI Physical Exam Vital Signs: Temperature: 97.9, Source: Temporal, Heart Rate: 90, Respiratory Rate: 18, BP: 142/78, Pulse Oximetry: 96, Weight: 97.270 Oxygen Flow Rate: 0 Physical Exam General: Patient is awake, alert, oriented x4 in no acute distress Head: Normocephalic and atraumatic. Eyes: Conjunctival normal. EOMI. PERRL. ENT: Mucous membranes moist. No higuera signs raccoon eyes or hemotympanum Neck: Supple, trachea is midline. No cervical midline tenderness Chest: Clear to auscultation bilaterally without rales, rhonchi, or wheezes. There is no accessory muscle use or retractions. Cardiac: RRR without murmurs, gallops, or rubs. Abd: Soft, nondistended, nontender, with normoactive bowel sounds. No guarding, rebound, or rigidity. Extremities: Swelling and tenderness to palpation to left lateral foot. No breaks in skin. Good plethora Progress Results/Orders Results/Orders Orders - ALEXANDER EVANS MD Ortho Orders (08/01/25 19:50) Completed Orders - ALEXANDER EVANS MD Hydrocodone/Apap 5/325mg Tab ([place] 5/32 (08/01/25 19:55) Vital Signs 08/01/25 17:57 Temp 97.9 Pulse 90 Resp 18 B/P (MAP) 142/78 Pulse Ox 96 O2 Flow Rate 0 Medical Decision Making Additional information obtaine: old records Findings Patient presents to the emergency room for evaluation of foot pain that has per HPI. Differentials include but are not limited to fractures, dislocation, soft tissue injury, tendinous injury therefore x-ray performed which shows fracture. We will refer to orthopedics. She is neurovascularly intact. Neurovascularly intact with reassuring exam and he had not feel she requires a CT scan of the head. General Diff Dx:Considerations: Include: Abrasion, Contusion, Fracture, Hematoma, Laceration, Malunion, Neurovascular injury, Open fracture, Sprain, Ulcer, Other Knee Diff Dx:Considerations: Include: Abrasion, Arthritis, Contusion, DJD, Fracture-femur, Fracture-fibula, Fracture-patella, Fracture-tibia, Gout, Hematoma, Laceration, Meniscus injury, Neurovascular injury, Open fracture, Rheumatoid arthritis, Septic, Sprain, Sprain-MCL, Sprain-LCL, Sprain-ACL, Sprain-PCL, Other Ankle Diff Dx:Considerations: Include: Abrasion, Arthritis, Contusion, DJD, Fracture-metatarsal, Fracture-fibula, Fracture-tarsal, Fracture-tibia, Gout, Hematoma, Laceration, Malunion, Neurovascular injury, Nonunion, Open fracture, Osteomyelitis, Rheumatoid arthritis, Sprain, Septic, Ulcer, Other Foot Diff Dx:Considerations: Include: Abrasion, Arthritis, Cellulitis, Contusion, Dislocation, DJD, Fracture-metatarsal, Fracture-phalynx, Fracture- tarsal, Gout, Hematoma, Ingrown toenail, Laceration, Malunion, Neurovascular injury, Open fracture, Paronychia, Puncture, Rheumatoid, Sprain, Septic, Subungual hematoma, Ulcer, Other Toe Diff Dx:Considerations: Include: Abrasion, Cellulitis, Contusion, Dislocation, Felon, Fracture, Hematoma, Laceration, Neurovascular injury, Open fracture, Paronychia, Subungual hematoma, Other Departure Disposition: 01 HOME / SELF CARE / HOMELESS Impression: Primary Impression: Fracture of foot Condition: Stable Discharge Instructions: Fracture, Foot Referrals: NO PRIMARY CARE PROVIDER (PCP) DAIANA HALL Jr., MD Prescriptions Hydrocodone Bit/Acetaminophen 5/325 MG ([place] 5/325 MG) 5 Mg/325 Mg Tablet 1 TAB PO Q4-6 hours PRN for pain, #15 TAB Prov: ALEXANDER EVANS MD 08/01/25 Signature Scribe Signature: No scribe Attestation: The note accurately reflects work and decisions made by me.Alexander Evans MD 08/01/25 19:58 ALEXANDER EVANS MD Aug 01, 2025 19:45
[2025-08-01] MEDS ORDERED: HYDR-3965 PO (19:57)
[2025-08-01 19:59] VITALS: RESP 16
[2025-08-01] MEDS: HYDROcodone/acetaminophen 5mg/325mg tablet PO ONE (19:59)
== END 2025-08-01 20:09 | disposition home or self-care (01) ==
LOC: ER 17:51
DX: S92.355A Nondisplaced fracture of fifth metatarsal bone, left foot, initial encounter for closed fracture (principal); M19.90 Unspecified osteoarthritis, unspecified site; F31.9 Bipolar disorder, unspecified; E11.9 Type 2 diabetes mellitus without complications; G89.29 Other chronic pain; G43.909 Migraine, unspecified, not intractable, without status migrainosus; F41.9 Anxiety disorder, unspecified; K21.9 Gastro-esophageal reflux disease without esophagitis; Z86.73 Personal history of transient ischemic attack (TIA), and cerebral infarction without residual deficits; Z88.2 Allergy status to sulfonamides; Z88.1 Allergy status to other antibiotic agents; Z88.8 Allergy status to other drugs, medicaments and biological substances; Z87.01 Personal history of pneumonia (recurrent); Z79.82 Long term (current) use of aspirin; Z79.899 Other long term (current) drug therapy; Z79.84 Long term (current) use of oral hypoglycemic drugs; Z98.890 Other specified postprocedural states; X58.XXXA Exposure to other specified factors, initial encounter; Y93.89 Activity, other specified; Y92.89 Other specified places as the place of occurrence of the external cause; Y99.8 Other external cause status
CPT/HCPCS: 73630; 99283

== ENCOUNTER 2025-08-04 11:36 | Inpatient (IN) | payer MEDICAID ==
[~2025-08-04] VITALS: Ht 165.1 cm; Wt 100.0 kg
[~2025-08-04 11:36] MED LIST changes: +HYDR-3965 PO
--- NOTE | 2025-08-04 11:50 | Physician Documentation ---
History of Present Illness General Chief Complaint: Overdose Stated Complaint: OD Time Seen by MD: 11:50 Primary Medical Doctor: Javy gant nc History of Present Illness Initial Comments 65-year-old female was found at home confused and with multiple open pill bottles next to her. The patient was found by EMS to be hypoxic and confused and brought into the emergency department. The the patient is unable to provide a significant history she does say that she took the medications and that she took too many of the. She does deny any suicidal ideations. The patient has complains of weakness and shortness of breath. Additional history was provided by EMS and the history was limited by the patient's confusion and clinical condition. The patient was seen in the emergency department three days ago and found to have fractures to her left foot and prescribed [place] 05/325 Medication Reconciliation Allergies: Coded Allergies: Sulfa (Sulfonamide Antibiotics) (Verified Allergy, Unknown, 08/01/25) gabapentin (Verified Allergy, Unknown, 08/01/25) tetracycline (Verified Adverse Reaction, Unknown, 08/01/25) Scheduled Aspirin (Ecotrin*), 1 TAB PO DAILY Clindamycin HCL* (Clindamycin HCL*), 1 CAP PO TID Lidocaine (Lidoderm), 1 PATCH TOP DAILY Metformin HCl (Metformin HCl), 1 TAB PO BID, (Reported) Pantoprazole Sodium (Protonix), 1 PKT PO DAILY Pregabalin (Lyrica), 1 CAP PO Q12H, (Reported) Scheduled PRN Acetaminophen (Acetaminophen), 1 TAB PO Q8H PRN for pain Albuterol (Albuterol), 2 PUFF IH Q4H PRN for SOB or wheezing, (Reported) Hydrocodone Bit/Acetaminophen 5/325 MG ([place] 5/325 MG), 1 TAB PO Q4-6 hours PRN for pain Lorazepam (Ativan), 1 TAB PO TID PRN for anxiety, (Reported) Quetiapine Fumarate (Quetiapine Fumarate), 1 TAB PO BID PRN for PRN, (Reported) Sumatriptan Succinate (Sumatriptan Succinate), 1 TAB PO DAILY PRN for migraine headaches, (Reported) Miscellaneous Medications Atorvastatin Calcium (Atorvastatin Calcium), (Reported) Past Medical History Past Medical History: CVA/TIA/Stroke, Headache, Migraine, Asthma, Bronchitis, COPD, Emphysema, Pneumonia, GERD, Diabetes, Arthritis, Chronic Pain, Chronic Back Pain, Cellulitis, *PSYCH*, Anxiety, Bipolar, Depression, Panic Disorder, Psychosis Past Surgical History: orthopedic surgeries Smoking: Quit greater than 1 year Alcohol Use: Rarely Drug Use: other Lives with: S/O Lives In: Home Occupation: disabled Review of Systems Unable to obtain complete ROS: altered mental status Physical Exam Physical Exam Vital Signs: Temperature: 102.6, Source: Rectal, Heart Rate: 111, Respiratory Rate: 12, BP: 148/84, Pulse Oximetry: 87, Weight: 100.000 Oxygen Flow Rate: 0 Physical Exam VITALS: Reviewed and as above. GENERAL: Somnolent arousable to verbal stimuli in mild respiratory distress HEENT: Normocephalic, atraumatic, PERRL, EOMI, dry mucosa, no erythema RESPIRATORY: Rhonchi bilaterally mild respiratory distress respiratory distress. CHEST: No accessory muscle use, no retractions CV: Tachycardia, rhythm, no edema, no murmur, No: JVD GI: Soft, non-tender, bowels sounds present, no rebound, guarding, or rigidity BACK: No CVA tenderness, or swelling MUSCULOSKELETAL: No deformities, no edema SKIN: Warm and dry, no rash NEURO: The patient is somnolent moves all extremities and is arousable to sternal rub and can converse for several sec for falling asleep she does have occasional myoclonic jerks that are proximally 3-4 seconds apart Progress Results/Orders Results/Orders Orders - OHLFSLUI MD Culture Blood (08/04/25 11:47) Chest,Single View (08/04/25 11:47) Monitor (08/04/25 11:47) Oxygen (08/04/25 11:47) Saline Lock (08/04/25 11:47) Straight Cath For Urine Sample (08/04/25 11:47) Completed Orders - OHLUI FENG MD Cbc/Diff (08/04/25 11:47) Urinalysis, Cult If Indicated (08/04/25 11:47) Chest,Single View (08/04/25 11:47) Procalcitonin (08/04/25 11:47) BMP (08/04/25 11:47) Lacticsepsis (08/04/25 11:47) Drug Screen, Urine (08/04/25 12:01) Normal Saline 1000ml (0.9% Sodium Chlori (08/04/25 12:05) Piperacillin/Tazo 3.375gm/50ml (Zosyn 3. (08/04/25 12:05) Stat Ekg (08/04/25 ) Hs Troponin I W Calculations (08/04/25 13:25) Hs Troponin I W Calculations (08/04/25 15:25) Hs Troponin I W Calculations (08/04/25 16:25) PBNP (08/04/25 12:12) Iron/Tibc (08/04/25 14:00) Iron/Tibc (08/04/25 16:00) AST (08/04/25 13:56) ALT (08/04/25 13:56) Salicylate (08/04/25 13:56) Acetaminophen (08/04/25 13:56) Acetaminophen 1,000mg/100ml Iv (Ofirmev (08/04/25 14:25) Hgb A1c (08/04/25 12:12) Vital Signs 08/04/25 08/04/25 08/04/25 08/04/25 11:39 12:22 12:27 12:28 Temp 102.6 102.6 Pulse 111 104 Resp 12 21 16 B/P (MAP) 148/84 144/78 (100) Pulse Ox 87 97 98 O2 Delivery Nasal Cannula* O2 Flow Rate 0 3 3.0 FiO2 32 08/04/25 08/04/25 08/04/25 13:00 13:30 14:00 Pulse 104 102 97 Resp 22 22 18 B/P (MAP) 131/77 (95) 144/75 (98) 111/56 (74) Pulse Ox 98 88 97 O2 Flow Rate 3.0 3.0 3.0 Laboratory Tests Test 08/04/25 12:12 08/04/25 12:40 08/04/25 14:04 White Blood Count 17.3 H Red Blood Count 3.67 L Hemoglobin 11.0 L Hematocrit 33.4 L Mean Corpuscular Volume 91.0 Mean Corpuscular Hemoglobin 30.0 Mean Corpuscular Hemoglobin Concent 33.0 Red Cell Distribution Width 15.7 H Platelet Count 352 Mean Platelet Volume 7.2 L Neutrophils (%) (Auto) 86.5 H Lymphocytes (%) (Auto) 3.4 L Monocytes (%) (Auto) 9.3 Eosinophils (%) (Auto) 0.7 Basophils (%) (Auto) 0.1 Neutrophils # (Auto) 15.0 H Lymphocytes # (Auto) 0.6 L Monocytes # (Auto) 1.6 H Eosinophils # (Auto) 0.1 Basophils # (Auto) 0.0 CBC Comment Sodium Level 141 Potassium Level 4.1 Chloride Level 101 Carbon Dioxide Level 35.1 H Anion Gap 5 L Blood Urea Nitrogen 15 Creatinine 0.80 Estimated GFR/1.73 m2 72 BUN/Creatinine Ratio 18.8 Glucose Level 141 H Hemoglobin A1c 5.7 Lactic Acid Level 1.0 Calcium Level 8.5 Aspartate Amino Transf (AST/SGOT) 21 Alanine Aminotransferase (ALT/SGPT) 21 Troponin I High Sensitivity 8 Pro-B-Type Natriuretic Peptide 206 H Albumin 3.5 Procalcitonin 0.74 H Chemistry Comments Salicylates Level 0.8 L Acetaminophen Level < 2.0 L Urine Specimen Description Straight cath Urine Color Yellow Urine Clarity Clear Urine pH 8.5 Urine Specific [place] 1.015 Urine Protein Negative Urine Glucose (UA) Negative Urine Ketones Negative Urine Occult Blood Negative Urine Nitrite Negative Urine Bilirubin Negative Urine Urobilinogen 0.2 Urine Leukocyte Esterase Negative Urine Culture Indicated Not ind Volume Urine Centrifuged 10 ml Urine Comment Urine Opiates Screen Positive Urine Methadone Screen Negative Urine Fentanyl Screen Negative Urine Barbiturates Screen Negative Urine Phencyclidine Screen Negative Urine Amphetamines Screen Negative Urine Benzodiazepines Screen Negative Urine Cocaine Screen Negative Urine Cannabinoids Screen Negative Drug Screen Comment Iron Level 7 L Total Iron Binding Capacity 294 Percent Iron Saturation 2 L Microbiology Date/Time Source Procedure Growth Status 08/04/25 12:12 Blood Iv Draw Blood Culture - Preliminary NO GROWTH AFTER 2 DAYS Resulted Medical Decision Making Additional information obtaine: old records Findings The patient's EKG demonstrates a sinus tachycardia rate of [address] depressions across the EKG the patient has got a normal axis and additionally nonspecific ST abnormalities with T-wave inversions in V1 and V2 the EKG was interpreted as an abnormal EKG time of the interpretation was 11 47 it was interpreted by myself. The patient presented with a fever hypoxia and polypharmacy overdose. The patient was treated for sepsis and potential septic shock with fluids and IV antibiotics she was given Zosyn for possible aspiration the patient received a dose of 0.4 mg of Narcan and became more lucid, this point she reported that she had intentionally ingested medications in the effort to hurt herself. This will be relayed to the Medicine staff as she will need admission for the pneumonia and then she will need psychiatric evaluation after her medical clearance. Differential Diagnosis sepsis, uti, colitis sbo Departure Impression: Primary Impression: Altered mental status Qualified Codes: R41.82 - Altered mental status, unspecified Additional Impressions: Aspiration pneumonia Qualified Codes: J69.0 - Pneumonitis due to inhalation of food and vomit Intentional overdose Qualified Codes: T50.902A - Poisoning by unspecified drugs, medicaments and biological substances, intentional self-harm, initial encounter Referrals: NO PRIMARY CARE PROVIDER (PCP) Signature Scribe Signature: no scribe Attestation: The note accurately reflects work and decisions made by me.Lui Esquivel MD 08/06/25 19:46 LUI ESQUIVEL MD Aug 04, 2025 11:50
[2025-08-04] MEDS: piperacillin/tazo 3.375gm/50ml 50 ML IV ONE (12:13)
[2025-08-04] MEDS: normal saline 1000ml 3,000 ML IV ONE (12:14)
--- NOTE | 2025-08-04 12:24 | ELECTROCARDIOGRAPH REPORT ---
[facility] Test Date: 2025-08-04 Test Time: 11:42:13 Pat Name: VERONICA PARRA Department: EMERGENCY ROOM Room: Gender: F [employer] Maker: : [id number] Requested By: LUI ESQUIVEL Order Number: [id number] Reading MD: Measurements Intervals [place] Rate: 110 P: 60 NC: 136 QRS: 1 QRSD: 91 T: -47 QT: 379 QTc: 513 Interpretive Statements Sinus tachycardia Low voltage, precordial leads Nonspecific T abnormalities, anterior leads Prolonged QT interval Please click the below link to view image of tracing.
--- NOTE | 2025-08-04 12:27 | RADIOLOGY REPORT ---
CLINICAL HISTORY: Possible pna. TECHNIQUE: Single frontal view of the chest was obtained. COMPARISON: DI CHEST,SINGLE VIEW on DOS: 02/08/25. FINDINGS: DEVICES/LINES/TUBES: None. LUNGS: Mild pulmonary vascular congestion/questionable mild pulmonary edema. Otherwise, lungs are clear. No focal consolidation. PLEURA: No pneumothorax or conspicuous pleural effusion. MEDIASTINUM/OTHER: Unchanged mildly enlarged cardiac silhouette. Normal mediastinal silhouette. Trachea is midline. BONES: No acute osseous abnormality. UPPER ABDOMEN: Unremarkable. IMPRESSION: Stable mild cardiomegaly with mild pulmonary vascular congestion/questionable mild pulmonary edema. No consolidation.
[2025-08-04 12:39] LABS: MEAN PLATELET VOLUME 7.2 FL (7.4-10.4); RED CELL DISTRIBUTION WIDTH 15.7 % (11.5-14.5)
[2025-08-04 12:44] LABS: CREATININE 0.80 MG/DL (0.40-0.90); TOTAL CARBON DIOXIDE 35.1 MMOL/L (24-32); eCRCL 65 ML/MIN; eGFR 72 ML/MIN
[2025-08-04 12:58] LABS: LEUKOCYTE ESTERASE ,URINE NEGATIVE (Neg); NITRITES, URINE NEGATIVE (Neg); OCCULT BLOOD,URINE NEGATIVE (Neg)
[2025-08-04 13:04] LABS: UA COLLECTION TYPE STRAIGHT CATH
[2025-08-04 13:13] LABS: URINE AMPHETAMINE SCREEN NEGATIVE (Neg); URINE BARBITUATE SCREEN NEGATIVE (Neg); URINE BENZODIAZEPINES SCREEN NEGATIVE (Neg); URINE CANNABINOID SCREEN NEGATIVE (Neg); URINE COCAINE SCREEN NEGATIVE (Neg); URINE METHADONE SCREEN NEGATIVE (Neg); URINE OPIATE SCREEN POSITIVE (Neg); URINE PHENCYCLIDINE SCREEN NEGATIVE (Neg)
[2025-08-04 14:09] LABS: PRO BRAIN NATRIURETIC PEPTIDE 206 PG/ML (0-125)
[2025-08-04] MEDS ORDERED: acetaminophen 650mg rectal suppository RC PRN (14:15)
[2025-08-04] MEDS ORDERED: magnesium Cl slow-release 64mg tablet PO PRN (14:15)
[2025-08-04] MEDS ORDERED: potassium Cl 40MEQ/1/2NS 520ml 520 ML IV PRN (14:15)
[2025-08-04] MEDS ORDERED: mag hydrox/Alum hydrox/simeth 30ml oral suspension PO PRN (14:15)
[2025-08-04] MEDS ORDERED: ondansetron/PF 4mg/2ml inj IV PRN (14:15)
[2025-08-04] MEDS ORDERED: magnesium hydroxide 30ml (MOM) UD suspension PO PRN (14:15)
[2025-08-04] MEDS ORDERED: potassium Cl 20 mEq SR tablet PO PRN ×2 (14:15)
[2025-08-04] MEDS ORDERED: magnesium sulf-water 2g/50mL 50 ML IV PRN (14:15)
[2025-08-04] MEDS ORDERED: magnesium sulf-water 4G/100mL 100 ML IV PRN (14:15)
[2025-08-04] MEDS ORDERED: ondansetron 4mg rapidly disintigrating tab PO PRN (14:15)
[2025-08-04] MEDS: acetaminophen 1,000mg/100ml IV 100 ML IV ONE (14:29)
[2025-08-04] MEDS: PERFLUTREN PROTEIN-A MICROSPHR (Optison) 0.22 MG/ML 3ML VIAL IV ONE (14:35)
[2025-08-04 14:41] LABS: % IRON SATURATION 2 % (11-46)
[2025-08-04] MEDS: normal saline 1000ml 1,000 ML IV SCH (15:40)
[2025-08-04 16:09] LABS: % IRON SATURATION 3 % (11-46)
[2025-08-04] MEDS: piperacillin/tazo 3.375gm/50ml 50 ML IV SCH (16:20)
--- NOTE | 2025-08-04 17:46 | CARDIOLOGY REPORT ---
APPROVED REPORT EXAM: Comprehensive 2D, Doppler, and color-flow Echocardiogram. Patient Location: ER RM 5 Blood Pressure: 148/84 mmHg Heart Rate: 88 bpm Indications Shortness of Breath Rx Medication O.D. DENTIST/OWNER: Chiara Arnold MD Previous ECHO: 02/09/25, [facility], EF: 65; m RVE; m LAE; M AI 2D Dimensions LA Diam 3.7 cm IVSd 0.9 (0.7-1.1cm) LVDd 4.5 cm PWd 1.1 (0.7-1.1cm) IVSs 1.5 (0.8-1.2cm) LVDs 2.8 (2.5-4.0cm) PWs 1.6 (0.8-1.2cm) LVOT Diameter 1.93 (1.8-2.4cm) LVEF(%) 67.2 (>50%) Ao Asc Diam. 4.17 cm IVC 17.26 mm FS (%) 37.2 % SV 62.7 ml CO 5.5 L/min M-Mode Dimensions Left Atrium(MM) 4.07 (2.5-4.0cm) Aortic Root 2.43 (2.2-3.7cm) Aortic Cusp Exc 1.88 (1.5-2.0cm) Aortic Valve AoV Peak Moreno. 224.2 cm/s AoV VTI 40.5 cm AO Peak GR. 20.1 mmHg AO Mean GR. 11 mmHg LVOT VTI 31.10 cm LVOT Peak Moreno. 148.9 cm/s AMANDA(VTI)/BSA 2.25 cm2/m2 AMANDA (VTI) 2.25 cm2 AI P 1/2 Time 676 ms AV DI 0.77 % Mitral Valve MV E Velocity 93.5 cm/s MV Peak Gr. 5 mmHg MV DECEL TIME 296 ms MV A Velocity 110.8 cm/s MV PHT 100 ms E/A Ratio 0.8 MVA (PHT) 2.20 cm2 MV VMax 111.6 cm/s TDI Lateral E' P. V 12.94 cm/s E/Lateral E' 7.2 Tricuspid Valve TR P. Velocity 217 cm/s RAP ESTIMATE 10 mmHg TR Peak Gr. 19 mmHg RVSP 29 mmHg LEFT VENTRICLE Normal LV size and wall thickness. Overall systolic function is normal. Overall LVEF is 65-70%. RIGHT VENTRICLE RV is normal size and function. ATRIA The left atrium size is normal. AORTIC VALVE Trileaflet AV appears mildly sclerotic without stenosis. Trace insufficiency by color and spectral flow Doppler. MITRAL VALVE Mild mitral annular calcification without stenosis. Trace regurgitation by color and spectral flow Doppler. TRICUSPID VALVE The tricuspid valve is normal in structure with trace regurgitation by color and spectral flow Doppler. PULMONIC VALVE Pulmonic valve is grossly normal in structure without insufficiency. GREAT VESSELS The aortic root is normal in size. Ascending aorta is dilated (4.17 cm). The IVC is normal in size and collapses >50% with inspiration. PERICARDIUM Normal pericardium. No effusion. Other Information Study Quality: Adequate Conclusion Overall LVEF is 65-70%. RV is normal size and function. Trileaflet AV appears mildly sclerotic without stenosis. Trace insufficiency by color and spectral flow Doppler. Mild mitral annular calcification without stenosis. Trace regurgitation by color and spectral flow Doppler. The tricuspid valve is normal in structure with trace regurgitation by color and spectral flow Doppler. Pulmonic valve is grossly normal in structure without insufficiency. Normal pericardium. No effusion.
[2025-08-04] MEDS ORDERED: ATOR40TA72 (18:43)
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
[2025-08-04] MEDS: heparin, porcine 5000 units/ml vial SQ SCH (20:00)
[2025-08-04] MEDS: docusate sod 100mg capsule PO SCH (20:00)
[2025-08-04] MEDS: K and/or MAG REPLACEMENT MC SCH (20:00)
[2025-08-04 20:14] LABS: APTT 28 SECONDS (22-32); INR 1.1 INR
[2025-08-04 20:16] LABS: CHOL/HDL RATIO 1.9 (0.00-4.99); LDL CHOLESTEROL 47 MG/DL (50-100)
[2025-08-05 03:24] LABS: MEAN PLATELET VOLUME 6.9 FL (7.4-10.4); RED CELL DISTRIBUTION WIDTH 15.6 % (11.5-14.5)
[2025-08-05 03:42] LABS: CREATININE 0.61 MG/DL (0.40-0.90); PHOSPHORUS 2.9 MG/DL (2.3-4.5); TOTAL CARBON DIOXIDE 30.9 MMOL/L (24-32); eCRCL 85 ML/MIN; eGFR > 90 ML/MIN
[2025-08-05 07:16] VITALS: BP 116/63; PULSE 76; RESP 14; TEMP 97.4
[2025-08-05 10:52] VITALS: RESP 14; O2SAT 96
[2025-08-05 13:09] LABS: APTT 31 SECONDS (22-32); INR 1.1 INR
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
--- NOTE | 2025-08-05 14:36 | RADIOLOGY REPORT ---
CLINICAL INDICATION: swelling LEFT ANKLE TECHNIQUE: DI ANKLE, COMPLETE(3VW MIN) COMPARISON: ANKLE, COMPLETE(3VW MIN) on DOS: 05/30/22, ANKLE, COMPLETE(3VW MIN) on DOS: 05/09/22 FINDINGS/IMPRESSION: : Ankle mortise is intact. Redemonstration of mildly displaced fracture of the proximal 5th metatarsal.
[2025-08-05 16:16] VITALS: BP 148/70; PULSE 66; RESP 18; TEMP 97.3; O2SAT 96
[2025-08-05 18:00] VITALS: BP 133/72; PULSE 80; RESP 20; TEMP 97.2; O2SAT 96
[2025-08-05 20:00] VITALS: RESP 20; O2SAT 97
[2025-08-05 22:00] VITALS: BP 148/65; PULSE 64; RESP 16; TEMP 97.4; O2SAT 97
[2025-08-06 06:00] VITALS: BP 149/55; PULSE 65; RESP 15; TEMP 97.6; O2SAT 94
[2025-08-06 06:40] LABS: MEAN PLATELET VOLUME 7.3 FL (7.4-10.4); RED CELL DISTRIBUTION WIDTH 15.5 % (11.5-14.5)
[2025-08-06 06:57] LABS: CREATININE 0.58 MG/DL (0.40-0.90); PHOSPHORUS 2.4 MG/DL (2.3-4.5); TOTAL CARBON DIOXIDE 27.8 MMOL/L (24-32); eCRCL 89 ML/MIN; eGFR > 90 ML/MIN
[2025-08-06 08:00] VITALS: RESP 18; O2SAT 98
[2025-08-06] MEDS: aspirin 81mg, enteric-coated 1 TAB TABLET.DR PO SCH (09:45)
[2025-08-06] MEDS: levoTHYROXINE 25mcg tablet PO SCH (09:58)
[2025-08-06 11:00] VITALS: BP 145/74; PULSE 52; RESP 14; TEMP 97.9; O2SAT 94
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
== END 2025-08-06 16:10 | disposition home or self-care (01) | DRG 817 ==
LOC: ER 11:36 → ED HOLD 14:26 → PCU 3S 08-05 06:55
PROVIDERS: ADMIT Family Medicine; ATTEND Family Medicine
DX: T50.992A Poisoning by other drugs, medicaments and biological substances, intentional self-harm, initial encounter (principal); J69.0 Pneumonitis due to inhalation of food and vomit; G93.41 Metabolic encephalopathy; A41.9 Sepsis, unspecified organism; E11.42 Type 2 diabetes mellitus with diabetic polyneuropathy; E78.5 Hyperlipidemia, unspecified; D50.9 Iron deficiency anemia, unspecified; F31.9 Bipolar disorder, unspecified; J43.9 Emphysema, unspecified; G43.909 Migraine, unspecified, not intractable, without status migrainosus; F41.0 Panic disorder [episodic paroxysmal anxiety]; G89.29 Other chronic pain; M54.9 Dorsalgia, unspecified; K21.9 Gastro-esophageal reflux disease without esophagitis; Z88.1 Allergy status to other antibiotic agents; Z88.2 Allergy status to sulfonamides; Z87.891 Personal history of nicotine dependence; Y92.89 Other specified places as the place of occurrence of the external cause
CPT/HCPCS: 36415; 71045; 73610; 80048; 80053; 80061; 80076; 80305; 80329; 81003; 83036; 83540; 83550; 83605; 83735; 83880; 84100; 84145; 84146; 84450; 84460; 84484; 85025; 85610; 85651; 85730; 86140; 87040; 93005; 93306; 96365; 99285; A4620; A6449; C1758; G0378; J0131; J1644; J2312; J2543; J7030; J7040